=== PATIENT | female | born 1965 | race Caucasian/White ===

== ENCOUNTER 2019-06-19 18:14 | Inpatient (IN) | payer OTHER ==
[2019-06-19] MEDS ORDERED: LORazepam 2 MG/ML INJ IV STA (18:38)
--- NOTE | 2019-06-19 18:41 | ED ---
General Adult HPI - General Chief complaint: Dizziness Stated complaint: lightheaded Time Seen by Provider: 06/19/19 18:29 Source: patient, family, RN notes reviewed Mode of arrival: wheelchair Limitations: no limitations - History of Present Illness Initial comments: Patient is a pleasant 54-year-old female presenting to the emergency Department with complaints of lightheadedness. Onset of symptoms was following starting Dyazide for hypertension. Patient saw her doctor this past week and was started on IV side. Symptoms started following that. Patient has lightheadedness as well as some arm cramping bilaterally. Patient does admit to having some anxiety associated with this as well. Patient has no history of hypertension previously, last blood pressure check was approximately one year ago. No headache or confusion or weakness. No loss of sensation. No speech problems. No chest pain or dyspnea. Blood pressure at the office was 180/120. - Related Data Allergies Allergy/AdvReac Type Severity Reaction Status Date / Time azithromycin [From Zithromax] Allergy Unknown Verified 06/19/19 18:24 Review of Systems ROS Statement: Those systems with pertinent positive or pertinent negative responses have been documented in the HPI. ROS Other: All systems not noted in ROS Statement are negative. Constitutional: Denies: fever Eyes: Denies: eye pain ENT: Denies: ear pain Respiratory: Denies: cough Cardiovascular: Denies: chest pain Endocrine: Denies: fatigue Gastrointestinal: Reports: nausea. Denies: abdominal pain Genitourinary: Denies: dysuria Musculoskeletal: Denies: back pain Skin: Denies: rash Neurological: Reports: as per HPI. Denies: headache Psychiatric: Reports: anxiety Past Medical History Past Medical History: Hypertension History of Any Multi-Drug Resistant Organisms: None Reported Past Surgical History: Orthopedic Surgery Past Psychological History: No Psychological Hx Reported Smoking Status: Never smoker Past Alcohol Use History: None Reported Past Drug Use History: None Reported General Exam Limitations: no limitations General appearance: alert, in no apparent distress Head exam: Present: normocephalic Eye exam: Present: normal appearance, PERRL, EOMI. Absent: nystagmus ENT exam: Present: normal oropharynx Neck exam: Present: normal inspection Respiratory exam: Present: normal lung sounds bilaterally Cardiovascular Exam: Present: regular rate, normal rhythm GI/Abdominal exam: Present: soft. Absent: tenderness Extremities exam: Present: normal inspection. Absent: pedal edema, calf tenderness Neurological exam: Present: alert, oriented X3, CN II-XII intact. Absent: motor sensory deficit Expanded Neurological exam: Present: protecting the airway Speech: Present: fluid speech Cranial nerves: EOM's Intact: Normal Motor strength exam: RUE: 5, LUE: 5, RLE: 5, LLE: 5 Eye Response: (4) open spontaneously Motor Response: (6) obeys commands Verbal Response: (5) oriented Psychiatric exam: Present: normal affect, normal mood Skin exam: Present: normal color Course Vital Signs 06/19/19 06/19/19 18:19 19:08 Temperature 98.1 F Pulse Rate 87 70 Respiratory 18 18 Rate Blood Pressure 198/122 177/117 O2 Sat by Pulse 98 Oximetry EKG Findings - EKG Comments: EKG Findings:: Normal sinus rhythm at 81. MD 158. QRS 90. QT 426. QTc 494. Normal axis. Normal QRS. No acute ST change. Medical Decision Making - Medical Decision Making Patient reevaluated and updated. Patient resting comfortably in bed. Case discussed with Dr. Villanueva, who will admit covering for Dr. Ferguson. - Lab Data Result diagrams: 06/19/19 18:55 06/19/19 18:55 Lab Results 06/19/19 06/19/19 Range/Units 18:55 18:55 WBC 10.7 H (3.8-10.6) k/uL RBC 4.62 (3.80-5.40) m/uL Hgb 13.2 (11.4-16.0) gm/dL Hct 37.7 (34.0-46.0) % MCV 81.6 (80.0-100.0) fL MCH 28.5 (25.0-35.0) pg MCHC 35.0 (31.0-37.0) g/dL RDW 12.1 (11.5-15.5) % Plt Count 242 (150-450) k/uL Neutrophils % 79 % Lymphocytes % 15 % Monocytes % 4 % Eosinophils % 1 % Basophils % 0 % Neutrophils # 8.4 H (1.3-7.7) k/uL Lymphocytes # 1.6 (1.0-4.8) k/uL Monocytes # 0.4 (0-1.0) k/uL Eosinophils # 0.1 (0-0.7) k/uL Basophils # 0.0 (0-0.2) k/uL Sodium 118 L* (137-145) mmol/L Potassium 3.1 L (3.5-5.1) mmol/L Chloride 79 L (98-107) mmol/L Carbon Dioxide 25 (22-30) mmol/L Anion Gap 14 mmol/L BUN 14 (7-17) mg/dL Creatinine 0.65 (0.52-1.04) mg/dL Est GFR (CKD-EPI)AfAm >90 (>60 ml/min/1.73 sqM) Est GFR (CKD-EPI)NonAf >90 (>60 ml/min/1.73 sqM) Glucose 139 H (74-99) mg/dL Calcium 9.1 (8.4-10.2) mg/dL Magnesium 1.5 L (1.6-2.3) mg/dL Total Bilirubin 1.3 (0.2-1.3) mg/dL AST 25 (14-36) U/L ALT 17 (4-34) U/L Alkaline Phosphatase 103 (38-126) U/L Total Protein 7.1 (6.3-8.2) g/dL Albumin 4.4 (3.5-5.0) g/dL Free T4 2.29 H (0.78-2.19) ng/dL Free T3 pg/mL 3.9 (2.8-5.3) pg/ml Disposition Clinical Impression: Hyponatremia, Hypokalemia, Hypertension Disposition: ADMITTED IP TO THIS HOSP Is patient prescribed a controlled substance at d/c from ED?: No Referrals: Yazmin Escalera MD [Primary Care Provider] - 1-2 days Decision Time: 19:56
[2019-06-19 19:09] LABS: Basophils % (A) 0 %; Eosinophils # (A) 0.1 k/uL (0-0.7); Eosinophils % (A) 1 %; HCT 37.7 % (34.0-46.0); HGB 13.2 gm/dL (11.4-16.0); Lymphocytes # (A) 1.6 k/uL (1.0-4.8); Lymphocytes % (A) 15 %; MCH 28.5 pg (25.0-35.0); MCV 81.6 fL (80.0-100.0); Mean Platelet Volume 6.4; Monocytes # (A) 0.4 k/uL (0-1.0); Monocytes % (A) 4 %; Neutrophils # (A) 8.4 k/uL (1.3-7.7); Neutrophils % (A) 79 %; Platelet Count 242 k/uL (150-450); RBC 4.62 m/uL (3.80-5.40); RDW 12.1 % (11.5-15.5); WBC 10.7 k/uL (3.8-10.6)
[2019-06-19 19:26] LABS: ALT 17 U/L (4-34); AST 25 U/L (14-36); African American GFR (CKD) >90 (>60 ml/min/1.73 sqM); Albumin 4.4 g/dL (3.5-5.0); Alkaline Phosphatase 103 U/L (38-126); Anion Gap 14 mmol/L; Blood Urea Nitrogen 14 mg/dL (7-17); Calcium 9.1 mg/dL (8.4-10.2); Carbon Dioxide 25 mmol/L (22-30); Chloride 79 mmol/L (98-107); Glucose 139 mg/dL (74-99); Magnesium 1.5 mg/dL (1.6-2.3); Non-African American GFR(CKD) >90 (>60 ml/min/1.73 sqM); Potassium 3.1 mmol/L (3.5-5.1); Total Bilirubin 1.3 mg/dL (0.2-1.3); Total Protein 7.1 g/dL (6.3-8.2)
[2019-06-19 19:33] LABS: Sodium 118 mmol/L (137-145)
--- NOTE | 2019-06-19 19:34 | XR ---
EXAMINATION TYPE: XR chest 2V DATE OF EXAM: 06/19/2019 COMPARISON: NONE HISTORY: Dizziness TECHNIQUE: 2 views FINDINGS: Heart and mediastinum are normal. Lungs are clear. Diaphragm is normal. Bony thorax appears normal. IMPRESSION: Normal chest.
[2019-06-19] MEDS ORDERED: POTASSIUM CHLORIDE ER 20 MEQ TAB.ER PO STA (19:36)
[2019-06-19] MEDS ORDERED: MAGNESIUM OXIDE 400 MG TAB PO STA (19:36)
[2019-06-19] MEDS ORDERED: SODIUM CHLORIDE 0.9% 500 ML 500 ML IV STA (19:37)
[2019-06-19] MEDS ORDERED: SODIUM CHLORIDE 0.9% 1,000 ML IV STA (19:37)
[2019-06-19 19:43] LABS: T4, Free (Free Thyroxine) 2.29 ng/dL (0.78-2.19)
[2019-06-19] MEDS ORDERED: NALOXONE 0.4 MG/ML 1 ML VIAL IV PRN (19:56)
[2019-06-19] MEDS ORDERED: amLODIPine 5 MG TAB PO STA (19:56)
[2019-06-19] MEDS ORDERED: MAGNESIUM SULFATE-D5W PMX 1 GM in DEXTROSE/WATER 1 100ML.BAG IVPB ONE (21:42)
[2019-06-19 22:04] LABS: Appearance,Urine Clear (Clear); Bilirubin,Urine Negative (Negative); Blood,Urine Negative (Negative); Color,Urine Light Yellow; Glucose,Urine (UA) Negative (Negative); Ketones,Urine 1+ (Negative); Leukocyte Esterase,Urine Negative (Negative); Nitrite,Urine Negative (Negative); PH, Urine 5.5 (5.0-8.0); Protein,Urine Negative (Negative); Specific Gravity,Urine 1.012 (1.001-1.035); Urobilinogen,Urine <2.0 mg/dL (<2.0)
--- NOTE | 2019-06-19 22:13 | P.HPIM ---
History of Present Illness H&P Date: 06/19/19 The patient is a 54-year-old female with a PMH of hypertension and hypothyroidism who presented to the ED with complaints of lightheadedness and cramping in her arms. The patient notes that her symptoms started after she was started on a new antihypertensive (dyazide) for her recently diag nosed high blood pressure. She notes compliance with the medication, taking it once daily, and notes that she initially felt somewhat lightheaded upon standing up, which then gradually worsened. She reports that earlier today, she had cramping in both her arms which was alarming to her, and prompted her to come to the emergency room. The patient also reported nausea throughout the day. The patient otherwise denied headache, weakness, numbness, syncope, seizures, fall, chest pain, shortness of breath, nausea, or vomiting. The patient underwent an extensive evaluation in the emergency room with laboratory evaluation showing a sodium of 118 (down from 137 on 06/17), potassium 3.1 (down from 4.6 on 06/17), chloride 79, magnesium 1.5, TSH 0.091, free T4 2 0.29, WBC count 10.7, hemoglobin 13.2, and platelets 242. The patient was given 1 L of normal saline bolus with potassium and magnesium supplementation and is being admitted to the medicine service for further management. Review of Systems Pertinent positives and negatives as discussed in HPI, a complete review of systems was performed and all other systems are negative. Past Medical History Past Medical History: Hypertension History of Any Multi-Drug Resistant Organisms: None Reported Past Surgical History: Orthopedic Surgery Past Psychological History: No Psychological Hx Reported Smoking Status: Never smoker Past Alcohol Use History: None Reported Past Drug Use History: None Reported Medications and Allergies Allergies Allergy/AdvReac Type Severity Reaction Status Date / Time azithromycin [From Zithromax] Allergy Unknown Verified 06/19/19 18:24 Physical Exam Vitals: Vital Signs Temp Pulse Resp BP Pulse Ox 06/19/19 20:19 80 18 185/107 97 06/19/19 19:08 70 18 177/117 06/19/19 18:19 98.1 F 87 18 198/122 98 Intake and Output 06/19/19 06/19/19 06/19/19 06:59 14:59 22:59 Other: Weight 84.822 kg General: non toxic, no distress, appears at stated age, obese Derm: no unusual rashes/lesions no unusual ecchymoses, warm, dry Head: atraumatic, normocephalic, symmetric Eyes: EOMI, no lid lag, anicteric sclera, pupils equal round reactive to light ENT: Nose and ears atraumatic, no thrush, no pharyngeal erythema Neck: No thyromegaly, no cervical lymphadenopathy, trachea midline, supple Mouth: no lip lesion, mucus membranes moist Cardiovascular: S1S2 reg, no murmur, positive posterior tibial pulse bilateral, no edema, capillary refill less than 2 seconds Lungs: CTA bilateral, no rhonchi, no rales , no accessory muscle use Abdominal: soft, nontender to palpation, no guarding, no appreciable organomegaly, normal bowel sounds Ext: no gross muscle atrophy, muscle strength 5 out of 5 in all 4 extremities grossly, no contractures, Neuro: CN II-XI grossly intact, light touch intact all 4 extremities, finger to nose within normal limits, Psych: Alert, oriented, appropriate affect Results CBC & Chem 7: 06/19/19 18:55 06/19/19 22:12 Labs: Abnormal Lab Results - Last 24 Hours (Table) 06/19/19 06/19/19 Range/Units 18:55 18:55 WBC 10.7 H (3.8-10.6) k/uL Neutrophils # 8.4 H (1.3-7.7) k/uL Sodium 118 L* (137-145) mmol/L Potassium 3.1 L (3.5-5.1) mmol/L Chloride 79 L (98-107) mmol/L Glucose 139 H (74-99) mg/dL Magnesium 1.5 L (1.6-2.3) mg/dL TSH 0.091 L (0.465-4.680) mIU/L Free T4 2.29 H (0.78-2.19) ng/dL Assessment and Plan Plan: Lightheadedness, cramping, likely due to severe hypochloremic hyponatremia -Likely secondary to initiation of combination diuretics -C/w IVFs NS 75 cc/hr -Monitor BMP -Seizure precautions Hypokalemia and hypomagnesemia -Supplement and monitor Hypothyroidism -Likely on a supratherapeutic dose of Synthroid -Patient notes her dose was recently increased -Restart on a lower dose Leukocytosis, no signs of active infection -Likely due to acute stress -Monitor CBC Hypertension -Start patient on Norvasc DVT prophylaxis -Heparin The patient is admitted with an anticipated less than 2 midnight stay for evaluation of hyponatremia CODE STATUS: Full Code Discussed with: Patient, Anticipated discharge date: 1-[address]: Home A total of 35 minutes was spent on the care of this complex patient more than 50% of the time was spent in counseling and care coordination.
[2019-06-19] MEDS ORDERED: hydrALAZINE HCL 25 MG TAB PO STA (22:32)
[2019-06-19] MEDS ORDERED: METOCLOPRAMIDE 5 MG TAB PO STA (22:34)
[2019-06-19 22:38] LABS: African American GFR (CKD) >90 (>60 ml/min/1.73 sqM); Anion Gap 12 mmol/L; Blood Urea Nitrogen 13 mg/dL (7-17); Calcium 8.9 mg/dL (8.4-10.2); Carbon Dioxide 25 mmol/L (22-30); Chloride 81 mmol/L (98-107); Glucose 125 mg/dL (74-99); Non-African American GFR(CKD) >90 (>60 ml/min/1.73 sqM); Potassium 3.5 mmol/L (3.5-5.1)
[2019-06-19] MEDS: POTASSIUM CHLORIDE ER 20 MEQ TAB.ER PO SCH (22:48)
[2019-06-19 23:30] LABS: Sodium 118 mmol/L (137-145)
--- NOTE | 2019-06-19 23:55 | P.PN ---
Progress Note - Text Progress Note Date: 06/19/19 Notified by the RN that the patient is c/o nausea. The patient's BP continues to be elevated and repeat BMP revealed persistently elevated level of Na. Concerns regarding possible cerebral edema due to persistent acute hyponatremia and hypertension. Will transfer patient to MICU. Will treat with hypertonic saline. Order Neurochecks.
[2019-06-20] MEDS ORDERED: HEPARIN SODIUM,PORCINE 5,000 UNIT/ML 1 ML VIAL SQ SCH
[2019-06-20] MEDS ORDERED: [UNRECOGNIZED DRUG - OTHER] IV SCH ×3 (00:30→00:50)
[2019-06-20] MEDS ORDERED: SODIUM CHLORIDE 3% IV SCH ×3 (00:30→00:50)
[2019-06-20 01:15] LABS: African American GFR (CKD) >90 (>60 ml/min/1.73 sqM); Anion Gap 10 mmol/L; Blood Urea Nitrogen 11 mg/dL (7-17); Calcium 9.1 mg/dL (8.4-10.2); Carbon Dioxide 27 mmol/L (22-30); Chloride 81 mmol/L (98-107); Glucose 120 mg/dL (74-99); Non-African American GFR(CKD) >90 (>60 ml/min/1.73 sqM); Potassium 3.7 mmol/L (3.5-5.1)
--- NOTE | 2019-06-20 01:35 | P.PN ---
Progress Note - Text Progress Note Date: 06/20/19 Spoke with the CLOTHING PATTERN PREPARER @ 0100 who noted that she had discussed the case with Dr Dutta who had said to hold off on the hypertonic saline bolus and obtain repeat BMP along with additional urinary testing. Subsequently discussed the case with Dr Dutta via phone who noted that the patient should receive hypertonic saline at a rate of 30 ml/hr along with IV lasix. Discussed the patient's symptoms including nausea and lightheadedness including concerns regarding possible milagros's reaction and herniation. The patient was seen and evaluated at the bedside @ 0120. The patient was awake, alert, and resting comfortably in bed. She noted that her nausea had somewhat improved along with her dizziness which also had seemed to be slightly improved. She denied weakness, numbness, tingling, headache, or visual disturbances. Plan to continue with Hypertonic saline as per the banking teacher along with lasix (to encourage free-water loss). Continue with Neurochecks q1h and BMP monitoring.
[2019-06-20 01:37] LABS: Creatinine,Urine Random 18.5 mg/dL
[2019-06-20] MEDS ORDERED: FUROSEMIDE 10 MG/ML 2 ML VIAL IV ONE (01:45)
[2019-06-20 02:00] LABS: Glucose,Whole Blood 109 mg/dL (75-99)
[2019-06-20] MEDS: SODIUM CHLORIDE 3%(HYPERTONIC) 500 ML IV SCH ×4 (02:09→22:36)
[2019-06-20 02:14] LABS: Sodium 118 mmol/L (137-145)
[2019-06-20 03:45] LABS: African American GFR (CKD) >90 (>60 ml/min/1.73 sqM); Anion Gap 9 mmol/L; Blood Urea Nitrogen 11 mg/dL (7-17); Calcium 8.7 mg/dL (8.4-10.2); Carbon Dioxide 27 mmol/L (22-30); Chloride 84 mmol/L (98-107); Glucose 105 mg/dL (74-99); Magnesium 1.8 mg/dL (1.6-2.3); Non-African American GFR(CKD) >90 (>60 ml/min/1.73 sqM); Potassium 3.5 mmol/L (3.5-5.1); Sodium 120 mmol/L (137-145)
[2019-06-20 07:14] LABS: HCT 37.9 % (34.0-46.0); HGB 13.8 gm/dL (11.4-16.0); MCHC 36.4 g/dL (31.0-37.0); MCV 82.5 fL (80.0-100.0); Mean Platelet Volume 6.7; Platelet Count 260 k/uL (150-450); RDW 12.2 % (11.5-15.5); WBC 9.6 k/uL (3.8-10.6)
[2019-06-20 07:24] LABS: African American GFR (CKD) >90 (>60 ml/min/1.73 sqM); Anion Gap 9 mmol/L; Blood Urea Nitrogen 12 mg/dL (7-17); Calcium 8.9 mg/dL (8.4-10.2); Carbon Dioxide 27 mmol/L (22-30); Chloride 87 mmol/L (98-107); Glucose 104 mg/dL (74-99); Non-African American GFR(CKD) >90 (>60 ml/min/1.73 sqM); Potassium 3.8 mmol/L (3.5-5.1); Sodium 123 mmol/L (137-145)
--- NOTE | 2019-06-20 08:45 | P.NPCON ---
History of Present Illness - Reason for Consult hyponatremia - Chief Complaint Dizziness and hyponatremia - History of Present Illness This 54-year-old female seen in consultation because of acute onset of symptomatic hyponatremia. Her sodium was normal at 137 2 days ago on 06/25/2019 about 53 hours prior to this. She is known with hypothyroidism. Recently there has been increase in dose of Synthroid from 100 225 g. She saw her primary physician for the first time on 06/17/2019 for a regular scheduled visit. Her blood pressure was in the 160-110 range. Prior to this during a visit to her erosion control specialist may be in December 2018 5 months ago her blood pressure was supposedly normal. She has not been on any blood pressure medications. She was started on triamterene hydrochlorothiazide combination and after taking one tablet she started to have some mild symptoms which worsened and therefore she came to the emergency room. Her sodium was 118. There is no history suggestive of any other explanation for her hypertension except that she was under some great stress because of financial reasons. She saw her primary physician for the first time also. Blood pressure in the doctor's office was in the range of 160/100 Prior to this visit and there is nothing to suggest any cause of secondary hypertension. No history of sweating and palpitations dizziness chest pain shortness of breath. Out of 4 siblings one has a blood pressure and her mother had high blood pressure. Patient denies taking any nonsteroidals, weight gain or substance abuse. On admission his sodium was 118, potassium 3.1 chloride 79 bicarb 25. Creatinine 0.65, BUN 14. Glucose is 139. Magnesium 1.5, TSH was 0.091 low free T4 was 2.29 and free T3 was 3.9 EKG shows normal sinus rhythm. She was started on IV normal saline in the emergency room and had received about 800 mL and repeat sodium stayed at 118. She was started on 3% normal saline at about 2 AM, frequent sodiums were done and has gone up to 123 as of this morning. Past Medical History Past Medical History: Hypertension History of Any Multi-Drug Resistant Organisms: None Reported Past Surgical History: Orthopedic Surgery Additional Past Surgical History / Comment(s): cervical fusion Past Psychological History: No Psychological Hx Reported Smoking Status: Never smoker Past Alcohol Use History: None Reported Past Drug Use History: None Reported Medications and Allergies Allergies Allergy/AdvReac Type Severity Reaction Status Date / Time azithromycin [From Zithromax] Allergy Unknown Verified 06/19/19 18:24 Physical Exam Vitals: Vital Signs Temp Pulse Pulse Resp BP BP Pulse Ox 06/20/19 08:00 98.4 F 85 18 110/72 96 06/20/19 07:00 73 15 103/74 96 06/20/19 06:00 76 16 112/71 94 L 06/20/19 05:00 79 16 110/68 93 L 06/20/19 04:00 98.7 F 80 18 125/67 94 L 06/20/19 03:00 82 18 144/91 93 L 06/20/19 02:00 99 16 150/88 95 06/20/19 01:27 89 16 165/99 98 06/20/19 01:13 83 196/93 06/20/19 00:42 204/111 06/20/19 00:30 191/113 06/19/19 23:43 76 15 176/95 06/19/19 22:14 98.6 F 86 16 198/107 96 06/19/19 22:04 98.1 F 88 18 191/98 96 06/19/19 21:57 88 18 191/98 96 06/19/19 20:19 80 18 185/107 97 06/19/19 19:08 70 18 177/117 06/19/19 18:19 98.1 F 87 18 198/122 98 Intake and Output 06/19/19 06/20/19 06/20/19 22:59 06:59 14:59 Intake Total 90 260 Output Total 1700 475 Balance -1610 -215 Intake: IV 90 60 Sodium Chloride 3%( 90 60 Hypertonic) 500 ml @ 20 mls/hr IV .Q24H [facility] Rx#: [id number] Oral 200 Output: Urine 1700 475 Other: Voiding Method Indwelling Catheter Indwelling Catheter # Voids 1 Weight 84.822 kg On examination currently she is awake alert oriented comfortable her symptoms have resolved almost completely. HEENT exam no JVP neck is supple no facial asymmetry Lungs are clear to auscultation good air entry bilaterally Heart sounds are unremarkable no murmur rub gallop Abdomen soft nontender no organomegaly status masses Extremity exam reveals no edema Neurologically awake alert oriented no asterixis Results - Lab Results Most recent lab results Calcium 8.9 mg/dL (8.4-10.2) 06/20/19 06:41 Magnesium 2.0 mg/dL (1.6-2.3) 06/20/19 06:41 06/20/19 06:41 06/20/19 06:41 Assessment and Plan Assessment: Impression 1. Acute symptomatic hyponatremia, sodium was 137 on 06/17/2019 at noon, and went down to 118 on 06/19/2019 at 7 PM approximately 53 hours after starting medication but symptomatic even within 24 hours of starting medications. This is somewhat unusual for a hydrochlorothiazide diuretics to induce second-degree of severe hyponatremia within 24-48 hours. There is no explanation other than this no currently. Her thyroid status is normal albeit slightly high free T4 on replacement. Did not respond to IV normal saline 800 mL. Urine sodium was collected after she was given about a liter of saline, it was 223 and urine sodium is not available. Responded to 3% saline at 30 mL an hour and one dose of Lasix 20 mg. Sodium is improved to 137, over 6 hours. As this is acute onset of hyponatremia this level of rapidity of correction is acceptable No other explanation may be nausea from other causes that might have induced SIADH. 2. Hypothyroidism on replacement 3. Acute onset of hypertension, for which she was prescribed Dyazide, she is off of the Dyazide currently pressure is down to normal without any medication Recommendation 1. I have reduced her 3% saline from 30 mL to 20 mL. 2. Will check serum sodium in about 8 hours from now to 3. Once discharge she needs to be followed up for possibility of hypertension recurring.
[2019-06-20] MEDS ORDERED: amLODIPine 5 MG TAB PO SCH (09:00)
--- NOTE | 2019-06-20 10:35 | P.CNPUL ---
History of Present Illness Consult date: 06/20/19 Requesting physician: Collin De Los Santos Reason for consult: other (Critical care management) Chief complaint: Dizziness, weakness, nausea History of present illness: This is a very pleasant 54-year-old female patient who follows with Dr. Chikis Lucas as a new primary care provider. She has a past medical history of hypothyroidism and follows with site manager for the same. She had seen her new PCP on 06/15/2019 and was found to be hypertensive 160/100 range. She had started her on hydrochlorothiazide which the patient initiated on 06/17/2019 and took a dose that day the and . Her sodium from the was 138. Later on the , yesterday, she developed increased nausea, dizziness, weakness and presented here to the emergency room for the same. She was found to have a sodium of 118. She needed to be initiated on 3% normal saline and transferred to the ICU. She is seen today in consultation. She is awake and alert in no acute distress. Her sodium has improved to 123. She denies any significant lightheadedness. Her nausea is subsiding. No tingling or numbness. She remains on hypertonic 3% normal saline at 30 MLS per hour. Nephrology is on the case. She is maintaining good O2 saturations in the 90s on room air. Afebrile. Hemodynamically stable. Review of Systems REVIEW OF SYSTEMS: CONSTITUTIONAL: Denies any recent significant weight loss or weight gain. EYES: Denies change in vision. EARS, NOSE, MOUTH, THROAT: Denies headaches, denies sore throat. CARDIOVASCULAR: Positive for palpitations, no chest pain or syncope RESPIRATORY: Positive for shortness of breath, no cough, congestion or hemoptysis. GASTROINTESTINAL: Positive for nausea GENITOURINARY: Denies hematuria, denies infections. MUSKULOSKELETAL: Cramps of the lower extremities, tingling and in the upper extremities. INTEGUMENTARY: Denies rash, denies eczema. NEUROLOGICAL: Positive for dizziness lightheadedness, fullness in the high. PSYCHIATRIC: Positive for anxiety. HEMATOLOGIC/LYMPHATIC: Denies anemia, denies enlarged lymph nodes. Past Medical History Past Medical History: Hypertension History of Any Multi-Drug Resistant Organisms: None Reported Past Surgical History: Orthopedic Surgery Additional Past Surgical History / Comment(s): cervical fusion Past Psychological History: No Psychological Hx Reported Smoking Status: Never smoker Past Alcohol Use History: None Reported Past Drug Use History: None Reported - Past Family History Mother Brother(s) Family Medical History: Hypertension Medications and Allergies Allergies Allergy/AdvReac Type Severity Reaction Status Date / Time azithromycin [From Zithromax] Allergy Unknown Verified 06/19/19 18:24 Physical Exam Vitals: Vital Signs Temp Pulse Pulse Resp BP BP Pulse Ox 06/20/19 08:00 98.4 F 85 18 110/72 96 06/20/19 07:00 73 15 103/74 96 06/20/19 06:00 76 16 112/71 94 L 06/20/19 05:00 79 16 110/68 93 L 06/20/19 04:00 98.7 F 80 18 125/67 94 L 06/20/19 03:00 82 18 144/91 93 L 06/20/19 02:00 99 16 150/88 95 06/20/19 01:27 89 16 165/99 98 06/20/19 01:13 83 196/93 06/20/19 00:42 204/111 06/20/19 00:30 191/113 06/19/19 23:43 76 15 176/95 06/19/19 22:14 98.6 F 86 16 198/107 96 06/19/19 22:04 98.1 F 88 18 191/98 96 06/19/19 21:57 88 18 191/98 96 06/19/19 20:19 80 18 185/107 97 06/19/19 19:08 70 18 177/117 06/19/19 18:19 98.1 F 87 18 198/122 98 Intake and Output 06/19/19 06/20/19 06/20/19 22:59 06:59 14:59 Intake Total 90 260 Output Total 1700 475 Balance -1610 -215 Intake: IV 90 60 Sodium Chloride 3%( 90 60 Hypertonic) 500 ml @ 20 mls/hr IV .Q24H [facility] Rx#: [id number] Oral 200 Output: Urine 1700 475 Other: Voiding Method Indwelling Catheter Indwelling Catheter # Voids 1 Weight 84.822 kg GENERAL EXAM: Alert, pleasant 54-year-old female patient, comfortable in no apparent distress. On room air HEAD: Normocephalic. EYES: Normal reaction of pupils, equal size. NOSE: Clear with pink turbinates. THROAT: No erythema or exudates. NECK: No masses, no JVD. CHEST: No chest wall deformity. LUNGS: Equal air entry with no crackles, wheeze, rhonchi or dullness. CVS: S1 and S2 normal with no audible murmur, regular rhythm. ABDOMEN: No hepatosplenomegaly, normal bowel sounds, no guarding or rigidity. SPINE: No scoliosis or deformity SKIN: No rashes CENTRAL NERVOUS SYSTEM: No focal deficits, tone is normal in all 4 extremities. EXTREMITIES: There is no peripheral edema. No clubbing, no cyanosis. Peripheral pulses are intact. Results - Laboratory Findings CBC and BMP: 06/20/19 06:41 06/20/19 06:41 Abnormal lab findings: Abnormal Labs 06/19/19 06/19/19 06/19/19 18:55 18:55 22:00 WBC 10.7 H Neutrophils # 8.4 H Sodium 118 L* Potassium 3.1 L Chloride 79 L Glucose 139 H POC Glucose (mg/dL) Magnesium 1.5 L TSH 0.091 L Free T4 2.29 H Urine Ketones 1+ H 06/19/19 06/20/19 06/20/19 22:12 00:50 01:58 WBC Neutrophils # Sodium 118 L* 118 L* Potassium Chloride 81 L 81 L Glucose 125 H 120 H POC Glucose (mg/dL) 109 H Magnesium TSH Free T4 Urine Ketones 06/20/19 06/20/19 03:20 06:41 WBC Neutrophils # Sodium 120 L 123 L Potassium Chloride 84 L 87 L Glucose 105 H 104 H POC Glucose (mg/dL) Magnesium TSH Free T4 Urine Ketones - Diagnostic Findings Chest x-ray: image reviewed Assessment and Plan Assessment: 1 Palpitations, nausea, lightheadedness secondary to acute hyponatremia with the presenting sodium 118. Currently 123. 2 Acute hyponatremia suspect secondary to hydrochlorothiazide 3 Hypertension and a recent PCP visit initiated on hydrochlorothiazide on 06/17/2019 with 3 doses taken 4 Hypothyroidism 5 Anxiety related to financial issues Plan: The patient was seen and evaluated by Dr. Palmer. Continue hypertonic saline 3% Continue to monitor sodium levels closely Keep her here in the ICU another 24 hours Monitor blood pressure currently normotensive We'll continue to follow I, the cosigning physician, performed a history & physical examination of the patient. Lungs sounds are clear. Maintaining good O2 saturations in the 90s on room air. I discussed the assessment and plan of care with my nurse practitioner, Maritza Lopez. I attest to the above consultation as dictated by her. Time with Patient: Greater than 30
[2019-06-20] MEDS: POTASSIUM CHLORIDE ER 20 MEQ TAB.ER PO SCH ×2 (10:49→21:04)
[2019-06-20 16:14] LABS: African American GFR (CKD) >90 (>60 ml/min/1.73 sqM); Anion Gap 8 mmol/L; Blood Urea Nitrogen 13 mg/dL (7-17); Calcium 9.2 mg/dL (8.4-10.2); Carbon Dioxide 27 mmol/L (22-30); Chloride 91 mmol/L (98-107); Glucose 103 mg/dL (74-99); Non-African American GFR(CKD) >90 (>60 ml/min/1.73 sqM); Potassium 4.3 mmol/L (3.5-5.1); Sodium 126 mmol/L (137-145)
--- NOTE | 2019-06-20 16:57 | P.PN ---
Subjective Progress Note Date: 06/20/19 (delayed charting patient seen at 1145) Principal diagnosis: altered mentation Patient is a 54 show female with past medical history of hypertension and hypothyroidism who presented to the emergency department secondary to lightheadedness, cramping, and confusion. In the ER she underwent an extensive evaluation. She was found to have an extremely low sodium of 118 (down from 137 on 06/17/19), potassium 3.1, chloride 79, magnesium 1.5, TSH 0.091, and free T4 2.29. Her blood pressure was extremely elevated on arrival she received IV hydralazine. She also received 1 L normal saline bolus, potassium, and magnesium supplementation. It was noted that she had started dyazide 2 days prior. She was admitted to the ICU for further monitoring. Nephrology was consulted. She was given 1 dose of hypertonic saline along with Lasix IV push to help with free water losses. Her neuro status and sodium were monitored closely. By the morning after admission her sodium had improved to 123. She was seen by nephrology who reduced her 3% saline from 30-20 mL/h and recommended awaiting repeat sodium for 8 hours later. She was started on Norvasc for elevated blood pressures, however blood pressure was marginal. Patient seen and examined at bedside. She reports that she her Synthroid dosing was stopped in December and she started developing some signs of hyperthy roidism since then. She states that her blood pressure was elevated at the physician's office but is typically not elevated. She really does not want to be on blood pressure medications going forward. She currently reports an improvement in her cramping and overall arm heaviness. She denies any shortness of breath. Objective - Vital Signs Vital signs: Vital Signs Temp 98.0 F 06/20/19 12:00 Pulse 79 06/20/19 15:00 Resp 16 06/20/19 15:00 BP 121/74 06/20/19 15:00 Pulse Ox 96 06/20/19 15:00 Intake & Output 06/19/19 06/20/19 06/20/19 18:59 06:59 18:59 Intake Total 90 840 Output Total 1700 1505 Balance -1610 -665 Weight 84.822 kg 84.822 kg Intake: IV 90 140 Sodium Chloride 3%( 90 140 Hypertonic) 500 ml @ 20 mls/hr IV .Q24H [facility] Rx#: [id number] Oral 700 Output: Urine 1700 1505 Other: Voiding Method Indwelling Catheter Indwelling Catheter # Voids 1 - Exam General: non toxic, no distress, appears at stated age Derm: warm, dry Head: atraumatic, normocephalic, symmetric Eyes: EOMI, no lid lag, anicteric sclera Mouth: no lip lesion, mucus membranes dry Cardiovascular: S1S2 reg, no murmur, positive posterior tibial pulse bilateral, Lungs: CTA bilateral, no rhonchi, no rales , no accessory muscle use Abdominal: soft, nontender to palpation, no guarding, no appreciable orga nomegaly Ext: no gross muscle atrophy, no edema, no contractures Neuro: CN II-XI grossly intact, no focal neuro deficits Psych: Alert, oriented, appropriate affect - Labs CBC & Chem 7: 06/20/19 06:41 06/20/19 15:50 Labs: Abnormal Lab Results - Last 24 Hours (Table) 06/19/19 06/19/19 06/19/19 Range/Units 18:55 18:55 22:00 WBC 10.7 H (3.8-10.6) k/uL Neutrophils # 8.4 H (1.3-7.7) k/uL Sodium 118 L* (137-145) mmol/L Potassium 3.1 L (3.5-5.1) mmol/L Chloride 79 L (98-107) mmol/L Glucose 139 H (74-99) mg/dL POC Glucose (mg/dL) (75-99) mg/dL Magnesium 1.5 L (1.6-2.3) mg/dL TSH 0.091 L (0.465-4.680) mIU/L Free T4 2.29 H (0.78-2.19) ng/dL Urine Ketones 1+ H (Negative) 06/19/19 06/20/19 06/20/19 Range/Units 22:12 00:50 01:58 WBC (3.8-10.6) k/uL Neutrophils # (1.3-7.7) k/uL Sodium 118 L* 118 L* (137-145) mmol/L Potassium (3.5-5.1) mmol/L Chloride 81 L 81 L (98-107) mmol/L Glucose 125 H 120 H (74-99) mg/dL POC Glucose (mg/dL) 109 H (75-99) mg/dL Magnesium (1.6-2.3) mg/dL TSH (0.465-4.680) mIU/L Free T4 (0.78-2.19) ng/dL Urine Ketones (Negative) 06/20/19 06/20/19 06/20/19 Range/Units 03:20 06:41 15:50 WBC (3.8-10.6) k/uL Neutrophils # (1.3-7.7) k/uL Sodium 120 L 123 L 126 L (137-145) mmol/L Potassium (3.5-5.1) mmol/L Chloride 84 L 87 L 91 L (98-107) mmol/L Glucose 105 H 104 H 103 H (74-99) mg/dL POC Glucose (mg/dL) (75-99) mg/dL Magnesium (1.6-2.3) mg/dL TSH (0.465-4.680) mIU/L Free T4 (0.78-2.19) ng/dL Urine Ketones (Negative) Assessment and Plan Assessment: Acute symptomatic hyponatremia - on 3% with nephro consult - Follow sodium levels - Off diuretic therapy, discharge home off diuretics - urine osmolality 223, urine sodium pending HTN urgency on arrival - now with low BP - stop norvasc - follow BP closely Hypothyroidism with depressed TSH - levothyroixine 100mcg - repeat testing in 4-6 weeks - 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
[2019-06-20 22:26] LABS: African American GFR (CKD) >90 (>60 ml/min/1.73 sqM); Anion Gap 6 mmol/L; Blood Urea Nitrogen 15 mg/dL (7-17); Calcium 9.1 mg/dL (8.4-10.2); Carbon Dioxide 27 mmol/L (22-30); Chloride 96 mmol/L (98-107); Glucose 101 mg/dL (74-99); Non-African American GFR(CKD) >90 (>60 ml/min/1.73 sqM); Potassium 4.1 mmol/L (3.5-5.1); Sodium 129 mmol/L (137-145)
[2019-06-21 01:13] LABS: African American GFR (CKD) >90 (>60 ml/min/1.73 sqM); Anion Gap 6 mmol/L; Blood Urea Nitrogen 14 mg/dL (7-17); Calcium 9.3 mg/dL (8.4-10.2); Carbon Dioxide 25 mmol/L (22-30); Chloride 100 mmol/L (98-107); Glucose 96 mg/dL (74-99); Non-African American GFR(CKD) >90 (>60 ml/min/1.73 sqM); Potassium 4.6 mmol/L (3.5-5.1); Sodium 131 mmol/L (137-145)
[2019-06-21 06:20] LABS: HCT 38.2 % (34.0-46.0); HGB 13.2 gm/dL (11.4-16.0); MCH 29.3 pg (25.0-35.0); MCHC 34.5 g/dL (31.0-37.0); MCV 84.9 fL (80.0-100.0); Mean Platelet Volume 6.7; Platelet Count 220 k/uL (150-450); RDW 12.5 % (11.5-15.5); WBC 6.1 k/uL (3.8-10.6)
[2019-06-21 06:29] LABS: African American GFR (CKD) >90 (>60 ml/min/1.73 sqM); Anion Gap 6 mmol/L; Blood Urea Nitrogen 12 mg/dL (7-17); Calcium 9.4 mg/dL (8.4-10.2); Carbon Dioxide 26 mmol/L (22-30); Chloride 103 mmol/L (98-107); Glucose 95 mg/dL (74-99); Non-African American GFR(CKD) >90 (>60 ml/min/1.73 sqM); Potassium 4.7 mmol/L (3.5-5.1); Sodium 135 mmol/L (137-145)
[2019-06-21] MEDS ORDERED: LEVOTHYROXINE 100 MCG TAB PO SCH (06:30)
[2019-06-21 08:11] VITALS: TEMP 98.2
[2019-06-21] MEDS: POTASSIUM CHLORIDE ER 20 MEQ TAB.ER PO SCH (09:20)
[2019-06-21 12:16] LABS: African American GFR (CKD) >90 (>60 ml/min/1.73 sqM); Anion Gap 10 mmol/L; Blood Urea Nitrogen 14 mg/dL (7-17); Calcium 9.5 mg/dL (8.4-10.2); Carbon Dioxide 21 mmol/L (22-30); Chloride 103 mmol/L (98-107); Glucose 101 mg/dL (74-99); Non-African American GFR(CKD) >90 (>60 ml/min/1.73 sqM); Sodium 134 mmol/L (137-145)
[2019-06-21 12:18] VITALS: BP 148/88; PULSE 80; RESP 14
--- NOTE | 2019-06-21 12:23 | PN ---
PROGRESS NOTE Patient is seen for followup for hyponatremia, secondary to thiazide and diuretics. She was on 3% saline for a short period of time, which was now discontinued. Her sodium up to 135. Patient wants to get discharged. She wants to go home. She denies any significant complaints. PHYSICAL EXAMINATION: On examination, blood pressure this morning was 138/94, heart rate 73 per minute, she is afebrile. Examination of the heart S1, S2. Examination of the lungs, bilateral breath sounds are heard. Abdomen is soft, non-tender. Examination of the lower extremities shows no significant edema. DIRECTOR VIDEO exam grossly intact. LABS: Show sodium 135, potassium 4.7, serum creatinine 0.6. ASSESSMENT: 1. Hyponatremia secondary to thiazide diuretics, currently improved. The patient is advised that we will repeat her sodium this afternoon and if she is stable, she can be discharged. She is advised to repeat labs as outpatient. Maintain some degree of free water restriction and increase her protein intake. She should also avoid the use of thiazide diuretics. 2. Possible hypertension. Patient will be given a prescription for Norvasc and she will monitor blood pressure at home. Will follow up with PCP and start the Norvasc if her systolic blood pressure remains elevated. MMODL / IJN: [id number] /
[2019-06-21 12:29] LABS: Potassium 5.2 mmol/L (3.5-5.1)
--- NOTE | 2019-06-21 12:56 | P.PN ---
Subjective Progress Note Date: 06/21/19 Principal diagnosis: Acute hypovolemic hyponatremia This is a very pleasant 54-year-old female patient who follows with Dr. Chikis Lucas as a new primary care provider. 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 She had seen her new PCP on 06/15/2019 and was found to be hypertensive 160/100 range. She had started her on hydrochlorothiazide which the patient initiated on 06/17/2019 and took a dose that day the and . Her sodium from the was 138. Later on the , yesterday, she developed increased nausea, dizziness, weakness and presented here to the emergency room for the same. She was found to have a sodium of 118. She needed to be initiated on 3% normal saline and transferred to the ICU. She is seen today in consultation. She is awake and alert in no acute distress. Her sodium has improved to 123. She denies any significant lightheadedness. Her nausea is subsiding. No tingling or numbness. She remains on hypertonic 3% normal saline at 30 MLS per hour. Nephrology is on the case. She is maintaining good O2 saturations in the 90s on room air. Afebrile. Hemodynamically stable. Reevaluated today on 06/21/19, patient is doing great. Patient is asymptomatic. Sodium is 134, renal profile is normal, patient is doing great and she remains hemodynamically stable. Objective - Vital Signs Vital signs: Vital Signs Temp 98.2 F 06/21/19 08:00 Pulse 80 06/21/19 12:00 Resp 14 06/21/19 12:00 BP 148/88 06/21/19 12:00 Pulse Ox 99 06/21/19 12:00 Intake & Output 06/20/19 06/21/19 06/21/19 18:59 06:59 18:59 Intake Total 1560 440 950 Output Total 2530 1725 645 Balance -970 -1285 305 Weight 85.6 kg Intake: IV 260 140 Sodium Chloride 3%( 260 140 Hypertonic) 500 ml @ 20 mls/hr IV .Q24H [facility] Rx#: [id number] Oral 1300 300 950 Output: Urine 2530 1725 645 Other: Voiding Method Indwelling Catheter Indwelling Catheter Indwelling Catheter - Exam Physical Exam: Revealed a 54-year-old female in no distress, pleasant. Head: Atraumatic, normocephalic. HEENT:[Neck is supple.] [No neck masses.] [No thyromegaly.] [No JVD.] Chest: [Clear throughout, no crackles, no rhonchi, no wheezes.] Cardiac Exam: [Normal S1 and S2, no S3 gallop, no murmur.] Abdomen: [Soft, nontender, no megaly, no rebound, no guarding, normal bowel sounds.] Extremities: [No clubbing, no edema, no cyanosis.] Neurological Exam: [No focal neurologic deficit.] Psychiatric: Normal mood affect and normal mental status examination. Skin: No rashes. - Labs CBC & Chem 7: 06/21/19 05:48 06/21/19 11:43 Labs: Abnormal Lab Results - Last 24 Hours (Table) 06/20/19 06/20/19 06/21/19 Range/Units 15:50 21:56 00:30 Sodium 126 L 129 L 131 L (137-145) mmol/L Potassium (3.5-5.1) mmol/L Chloride 91 L 96 L (98-107) mmol/L Carbon Dioxide (22-30) mmol/L Glucose 103 H 101 H (74-99) mg/dL 06/21/19 06/21/19 Range/Units 05:48 11:43 Sodium 135 L 134 L (137-145) mmol/L Potassium 5.2 H (3.5-5.1) mmol/L Chloride (98-107) mmol/L Carbon Dioxide 21 L (22-30) mmol/L Glucose 101 H (74-99) mg/dL Assessment and Plan Assessment: Impression: Acute hypovolemic hyponatremia could've to diuretics History of hypertension. History of hypothyroidism. Generalized anxiety disorder. Recommendation: Continue to hold diuretics. Consider discharge planning today, Follow-up on outpatient basis with nephrology. Cleared for discharge from the ICU perspective. Time with Patient: Less than 30
--- NOTE | 2019-06-21 14:10 | P.DS ---
Providers Date of admission: 06/19/19 19:56 Expected date of discharge: 06/21/19 Attending physician: Collin De Los Santos MD Consults: 06/19/19 23:46 Consult Physician Stat Consulting Provider: Elmer Dutta Consult Reason/Comments: Hypochloremic hyponaremia Do you want consulting provider notified?: Yes 06/20/19 00:05 Consult Physician Stat Consulting Provider: Pierre Palmer Consult Reason/Comments: Severe symptomatic hyponatremia Do you want consulting provider notified?: Yes Primary care physician: [facility] Course: Discharge Diagnosis: Acute symptomatic hyponatremia HTN urgency on arrival Hypothyroidism with depressed TSH Leukocytosis, reactive, resovled Hypokalemia, resolved hypomagnesemia, resolved Hospital Course: Patient is a 54 yo female with past medical history of hypertension and hypothyroidism who presented to the emergency department secondary to lightheadedness, cramping, and confusion. In the ER she underwent an extensive evaluation. She was found to have an extremely low sodium of 118 (down from 137 on 06/17/19), potassium 3.1, chloride 79, magnesium 1.5, TSH 0.091, and free T4 2.29. Her blood pressure was extremely elevated on arrival she received IV hydralazine. She also received 1 L normal saline bolus, potassium, and magnesium supplementation. It was noted that she had started dyazide 2 days prior. She was admitted to the ICU for further monitoring. Nephrology was consulted. She was given 1 dose of hypertonic saline along with Lasix IV push to help with free water losses. Her neuro status and sodium were monitored closely. By the morning after admission her sodium had improved to 123. She was seen by nephrology who reduced her 3% saline from 30-20 mL/h and recommended awaiting repeat sodium for 8 hours later. She was started on Norvasc for elevated blood pressures, however blood pressure was marginal. Her sodium continued to improve. She was taken off normal saline and her sodium remained stable. Her BP was controlled on off medications and she was determined stable for discharge home. She will monitor her BP one daily and if she gets 3 independent reagins with SBP>140 or DBP >90 she will start norvasc 5 mg daily. She should have a repeat bmp in 3 days. She was found to have low TSH and synthroid was decreased. Recommend repeat TSH in 4-6 weeks. Follow-up with Dr. Escalera on Sunday 06/25 Patient seen and examined at bedside. Feeling well, slightly anxious, no nausea, no vomiting. No chest pain, no shortness of breath. Vital signs reviewed and stable. General: non toxic, no distress, appears at stated age Derm: warm, dry Head: atraumatic, normocephalic, symmetric Eyes: EOMI, no lid lag, anicteric sclera Mouth: no lip lesion, mucus membranes moist Cardiovascular: S1S2 reg, no murmur, positive posterior tibial pulse bilateral, Lungs: CTA bilateral, no rhonchi, no rales , no accessory muscle use Abdominal: soft, nontender to palpation, no guarding, no appreciable organomegaly Ext: no gross muscle atrophy, no edema, no contractures Neuro: CN II-XI grossly intact, no focal neuro deficits Psych: Alert, oriented, appropriate affect A total of 35 minutes of time were spent preparing this complex discharge summary . Patient Condition at Discharge: Stable Plan - Discharge Summary Discharge Rx Participant: Yes New Discharge Prescriptions: New amLODIPine [Norvasc] 5 mg PO DAILY #30 tab Levothyroxine Sodium [Synthroid] 100 mcg PO DAILY@0630 #30 tab Continue Multivitamins, Thera [Multivitamin (formulary)] 1 tab PO DAILY [place]-3 Fatty Acids/Fish Oil [Fish Oil 1,000 mg Softgel] 1 cap PO DAILY Discontinued Levothyroxine Sodium [Synthroid] 125 mcg PO DAILY Discharge Medication List Multivitamins, Thera [Multivitamin (formulary)] 1 tab PO DAILY 06/20/19 [History] [place]-3 Fatty Acids/Fish Oil [Fish Oil 1,000 mg Softgel] 1 cap PO DAILY 06/20/19 [History] Levothyroxine Sodium [Synthroid] 100 mcg PO DAILY@0630 #30 tab 06/21/19 [Rx] amLODIPine [Norvasc] 5 mg PO DAILY #30 tab 06/21/19 [Rx] Follow up Appointment(s)/Referral(s): Yazmin Escalera MD [Primary Care Provider] - 1-2 days Ambulatory/Diagnostic Orders: Basic Metabolic Panel [LAB.AMB] Time Frame: 3 Days, Location: None Selected Activity/Diet/Wound Care/Special Instructions: Activity: as tolerated Diet: regular, avoid intake of great than 64 ounces of water daily Special Instructions: Take blood pressure daily if top number is greater than 140 or bottom number greater than 90 on 3 occasions start [facility] Discharge Disposition: HOME SELF-CARE
== END 2019-06-21 15:30 | disposition home or self-care (01) | DRG 641 ==
LOC: EC 18:14 → 4SSUR 19:56 → 2SICU 06-20 02:01
PROVIDERS: ADMIT Internal Medicine; ATTEND Internal Medicine
DX: E87.1 Hypo-osmolality and hyponatremia (principal); E03.9 Hypothyroidism, unspecified; E83.42 Hypomagnesemia; E86.1 Hypovolemia; E87.6 Hypokalemia; I10 Essential (primary) hypertension; T50.2X5A Adverse effect of carbonic-anhydrase inhibitors, benzothiadiazides and other diuretics, initial encounter; I16.0 Hypertensive urgency; F41.1 Generalized anxiety disorder; Z88.1 Allergy status to other antibiotic agents; Z98.890 Other specified postprocedural states; Z59.9 Problem related to housing and economic circumstances, unspecified; Z82.49 Family history of ischemic heart disease and other diseases of the circulatory system
CPT/HCPCS: 36415; 71046; 80048; 80053; 81003; 82570; 83735; 83935; 84300; 84439; 84443; 84481; 85025; 85027; 93005; 96361; 96374; 99285

== ENCOUNTER 2023-06-01 08:51 | Emergency (ER) | payer OTHER ==
[2023-06-01 09:16] VITALS: RESP 18
[2023-06-01] MEDS ORDERED: LORazepam 2 MG/ML INJ IV STA (09:32)
[2023-06-01] MEDS ORDERED: IBUPROFEN IV 600 MG in SODIUM CHLORIDE 0.9% 250 ML IV STA (09:36)
[2023-06-01] MEDS ORDERED: ACETAMINOPHEN IV (For NPO) 1,000 MG in EMPTY BAG 1 BAG IVPB STA (09:36)
[2023-06-01] MEDS ORDERED: SODIUM CHLORIDE 0.9% 500 ML 500 ML IV SCH (09:45)
--- NOTE | 2023-06-01 10:01 | XR ---
EXAMINATION TYPE: XR chest 2V DATE OF EXAM: 06/01/2023 COMPARISON: 06/19/19 HISTORY: Shortness of breath TECHNIQUE: Frontal and lateral views of the chest are obtained. FINDINGS: Scattered senescent parenchymal changes noted. No evidence for infiltrate. No evidence for atelectasi s. Heart size is stable. Mediastinal structures are stable and grossly unremarkable. No evidence for hilar prominence. Degenerative changes dorsal spine. IMPRESSION: 1. No evidence for acute pulmonary disease.
--- NOTE | 2023-06-01 10:02 | CT ---
EXAMINATION TYPE: CT brain rafy partida DATE OF EXAM: 06/01/2023 COMPARISON: none HISTORY: Lt sided numbness, dizziness CT DLP: 1380.[address] of the brain was performed. The ventricles, basal cisterns and sulci overlying the cerebral convexities demonstrate mild enlargem ent. There is no evidence for intracranial hemorrhage or sulcal effacement. There is decreased attenuatio n about the periventricular white matter and deep white matter of both cerebral hemispheres, compatib le with chronic small vessel ischemia. No mass effects are seen. If symptoms persist consider MRI. Osseous calvarium is intact. IMPRESSION: 1. Age related atrophic and chronic small vessel ischemic change without acute intracranial process seen at this time. CT Cervical Spine: Unenhanced CT of the cervical spine was performed with bone and soft tissue window settings submitted . Coronal and sagittal reconstruction is obtained. There is normal alignment and prevertebral soft tissues. No evidence for acute cervical fracture . Scattered degenerative disc disease and spondylosis. Biapical scarring. IMPRESSION: 1. No evidence for acute fracture or subluxation of the cervical spine.
[2023-06-01 10:14] LABS: Basophils # (A) 0.1 k/uL (0-0.2); Basophils % (A) 1 %; Eosinophils # (A) 0.1 k/uL (0-0.7); Eosinophils % (A) 1 %; HCT 41.8 % (34.0-46.0); HGB 13.8 gm/dL (11.4-16.0); Lymphocytes # (A) 1.3 k/uL (1.0-4.8); Lymphocytes % (A) 14 %; MCH 28.6 pg (25.0-35.0); MCV 86.5 fL (80.0-100.0); Monocytes # (A) 0.3 k/uL (0-1.0); Monocytes % (A) 4 %; Neutrophils # (A) 7.4 k/uL (1.3-7.7); Neutrophils % (A) 80 %; Platelet Count 248 k/uL (150-450); RBC 4.83 m/uL (3.80-5.40); RDW 12.3 % (11.5-15.5); WBC 9.2 k/uL (3.8-10.6)
[2023-06-01 10:22] LABS: INR 0.9 (<1.2); Partial Thromboplastin Time 23.5 sec (22.0-30.0)
--- NOTE | 2023-06-01 10:28 | ED ---
General Adult HPI - General Chief complaint: Neuro Symptoms/Deficit Stated complaint: light headed Time Seen by Provider: 06/01/23 09:05 Source: patient, family, RN notes reviewed, old records reviewed Mode of arrival: ambulatory Limitations: no limitations - History of Present Illness Initial comments: This is a 58-year-old female presents to the emergency department with a past medical history significant for anxiety and panic attacks. Patient comes in today stating that for the last month she has had some dizziness spells and for the last 4 to 5 months she has had some paresthesias in her face and her right arm and her left arm as well. Patient also has some paresthesias in her left leg. Patient has no area of actual numbness she always has sensation but it just feels weird to her today and felt a little more weird and she was not sure if it was a panic attack or something else going on so she came to the emergency department. Patient denies any fever or chills. Patient is chest pain or difficulty breathing. Patient denies abdominal pain. Patient denies any nausea vomiting or diarrhea. - Related Data Home Medications Medication Instructions Recorded Confirmed Multivitamins, Thera [Multivitamin 1 tab PO DAILY 06/20/19 06/20/19 (formulary)] Tama-3 Fatty Acids/Fish Oil [Fish 1 cap PO DAILY 06/20/19 06/20/19 Oil 1,000 mg Softgel] Previous Rx's Medication Instructions Recorded Levothyroxine Sodium [Synthroid] 100 mcg PO DAILY@0630 #30 tab 06/21/19 amLODIPine [Norvasc] 5 mg PO DAILY #30 tab 06/21/19 Allergies Allergy/AdvReac Type Severity Reaction Status Date / Time azithromycin [From Zithromax] Allergy Unknown Verified 06/01/23 09:05 Review of Systems ROS Statement: Those systems with pertinent positive or pertinent negative responses have been documented in the HPI. ROS Other: All systems not noted in ROS Statement are negative. Past Medical History Past Medical History: Hypertension, Thyroid Disorder History of Any Multi-Drug Resistant Organisms: None Reported Past Surgical History: Orthopedic Surgery Additional Past Surgical History / Comment(s): cervical fusion Past Psychological History: No Psychological Hx Reported Smoking Status: Never smoker Past Alcohol Use History: Occasional Past Drug Use History: None Reported - Past Family History Mother Brother(s) Family Medical History: Hypertension General Exam - General Exam Comments Initial Comments: GENERAL: Patient is well-developed and well-nourished. Patient is nontoxic and well- hydrated and is in mild distress. ENT: Neck is soft and supple. No significant lymphadenopathy is noted. Oropharynx is clear. Moist mucous membranes. Neck has full range of motion without eliciting any pain. EYES: The sclera were anicteric and conjunctiva were pink and moist. Extraocular movements were intact and pupils were equal round and reactive to light. Eyelids were unremarkable. PULMONARY: Unlabored respirations. Good breath sounds bilaterally. No audible rales rhonchi or wheezing was noted. CARDIOVASCULAR: There is a regular rate and rhythm without any murmurs gallops or rubs. ABDOMEN: Soft and nontender with normal bowel sounds. SKIN: Skin is clear with no lesions or rashes and otherwise unremarkable. NEUROLOGIC: Patient is alert and oriented x3. Cranial nerves II through XII are grossly intact. Motor and sensory are also intact. Normal speech, volume and content. Symmetrical smile. NIH is 0 MUSCULOSKELETAL: Normal extremities with adequate strength and full range of motion. No lower extremity swelling or edema. No calf tenderness. LYMPHATICS: No significant lymphadenopathy is noted PSYCHIATRIC: Patient is very anxious Limitations: no limitations Course Vital Signs 06/01/23 06/01/23 06/01/23 09:01 09:41 10:30 Temperature 98 F Pulse Rate 70 71 68 Respiratory 18 18 18 Rate Blood Pressure 202/97 186/98 165/92 O2 Sat by Pulse 100 100 99 Oximetry Medical Decision Making - Medical Decision Making EKG is interpreted by myself her EKG shows a sinus rhythm at 60 bpm NE interval 160 QRS 84 QT intervals 4 8 QTc is 427. There is no ST segment ovation or depression Was pt. sent in by a medical professional or institution (, PA, [employer], urgent care, hospital, or group home...) When possible be specific @ -No Did you speak to anyone other than the patient for history (EMS, parent, family, police, friend...)? What history was obtained from this source @ -No Did you review nursing and triage notes (agree or disagree)? Why? @ -I reviewed and agree with nursing and triage notes Were old charts reviewed (outside hosp., previous admission, EMS record, old EKG, old radiological studies, urgent care reports/EKG's, group home records)? Report findings @ -I reviewed prior charts and prior lab work on this patient Differential Diagnosis (chest pain, altered mental status, abdominal pain women, abdominal pain men, vaginal bleeding, weakness, fever, dyspnea, syncope, headache, dizziness, GI bleed, back pain, seizure, CVA, palpatations, mental health, musculoskeletal)? @ -Differential Dizziness: Benign paroxysmal positional Vertigo, Menieres disease, otitis media, acoustic neuroma, vertebrobasilar insufficiency, cerebellar stroke, encephalitis, hypovolemic, arrhythmia, coronary artery syndrome, anemia, this is not meant to be an all-inclusive list EKG interpreted by me (3pts min.). @ -As above X-rays interpreted by me (1pt min.). @ -None done CT interpreted by me (1pt min.). @ -CT of the brain and CT of the C-spine showed no acute abnormality U/S interpreted by me (1pt. min.). @ -None done What testing was considered but not performed or refused? (CT, X-rays, U/S, labs)? Why? @ -None What meds were considered but not given or refused? Why? @ -None Did you discuss the management of the patient with other professionals (professionals i.e. , PA, [employer], lab, RT, psych nurse, social media strategist, glucose and syrup weigher, teacher, privacy officer, manager rn case)? Give summary @ -No Was smoking cessation discussed for >3mins.? @ -No Was critical care preformed (if so, how long)? @ -No Were there social determinants of health that impacted care today? How? (Homelessness, low income, unemployed, alcoholism, drug addiction, transportati on, low edu. Level, literacy, decrease access to med. care, residential, rehab)? @ -No Was there de-escalation of care discussed even if they declined (Discuss DNR or withdrawal of care, Hospice)? DNR status @ -No What co-morbidities impacted this encounter? (DM, HTN, Smoking, COPD, CAD, Cancer, CVA, ARF, Chemo, Hep., AIDS, mental health diagnosis, sleep apnea, morbid obesity)? @ -None Was patient admitted / discharged? Hospital course, mention meds given and route, prescriptions, significant lab abnormalities, going to OR and other pertinent info. @ -Patient received Ativan in the emergency department and felt considerably better and her symptoms seem to be improved as well. Patient states she has been having the symptoms of for anywhere is between 1 month and 4 to 5 months and some of the symptoms. Patient states she is already following up with her primary medical care doctor. Undiagnosed new problem with uncertain prognosis? @ -No Drug Therapy requiring intensive monitoring for toxicity (Heparin, Nitro, Insulin, Cardizem)? @ -No Were any procedures done? @ -No Diagnosis/symptom? @ -Paresthesias Acute, or Chronic, or Acute on Chronic? @ -Acute Uncomplicated (without systemic symptoms) or Complicated (systemic symptoms)? @ -Complicated Side effects of treatment? @ -No Exacerbation, Progression, or Severe Exacerbation? @ -No Poses a threat to life or bodily function? How? (Chest pain, [place], [place], pneumonia, PE, COPD, DKA, ARF, appy, cholecystitis, CVA, Diverticulitis, Homicidal, Kym cidal, threat to staff... and all critical care pts) @ -No Diagnosis/symptom? @ -Anxiety Acute, or Chronic, or Acute on Chronic? @ -Acute Uncomplicated (without systemic symptoms) or Complicated (systemic symptoms)? @ -Complicated Side effects of treatment? @ -None Exacerbation, Progression, or Severe Exacerbation] @ -No Poses a threat to life or bodily function? @ -No - Lab Data Result diagrams: 06/01/23 09:44 06/01/23 09:44 Lab Results 06/01/23 06/01/23 06/01/23 Range/Units 09:44 09:44 09:44 WBC 9.2 (3.8-10.6) k/uL RBC 4.83 (3.80-5.40) m/uL Hgb 13.8 (11.4-16.0) gm/dL Hct 41.8 (34.0-46.0) % MCV 86.5 (80.0-100.0) fL MCH 28.6 (25.0-35.0) pg MCHC 33.0 (31.0-37.0) g/dL RDW 12.3 (11.5-15.5) % Plt Count 248 (150-450) k/uL MPV 7.0 Neutrophils % 80 % Lymphocytes % 14 % Monocytes % 4 % Eosinophils % 1 % Basophils % 1 % Neutrophils # 7.4 (1.3-7.7) k/uL Lymphocytes # 1.3 (1.0-4.8) k/uL Monocytes # 0.3 (0-1.0) k/uL Eosinophils # 0.1 (0-0.7) k/uL Basophils # 0.1 (0-0.2) k/uL PT 10.0 (10.0-12.5) sec INR 0.9 (<1.2) APTT 23.5 (22.0-30.0) sec Sodium 132 L (137-145) mmol/L Potassium 4.9 (3.5-5.1) mmol/L Chloride 101 (98-107) mmol/L Carbon Dioxide 22 (22-30) mmol/L Anion Gap 9 mmol/L BUN 13 (7-17) mg/dL Creatinine 0.60 (0.52-1.04) mg/dL Est GFR (CKD-EPI)AfAm >90 (>60 ml/min/1.73 sqM) Est GFR (CKD-EPI)NonAf >90 (>60 ml/min/1.73 sqM) Glucose 106 H (74-99) mg/dL Calcium 9.5 (8.4-10.2) mg/dL Magnesium 2.0 (1.6-2.3) mg/dL Total Bilirubin 0.7 (0.2-1.3) mg/dL AST 29 (14-36) U/L ALT 16 (4-34) U/L Alkaline Phosphatase 88 (38-126) U/L Troponin I (0.000-0.034) ng/mL Total Protein 7.3 (6.3-8.2) g/dL Albumin 4.5 (3.5-5.0) g/dL 06/01/23 Range/Units 09:44 WBC (3.8-10.6) k/uL RBC (3.80-5.40) m/uL Hgb (11.4-16.0) gm/dL Hct (34.0-46.0) % MCV (80.0-100.0) fL MCH (25.0-35.0) pg MCHC (31.0-37.0) g/dL RDW (11.5-15.5) % Plt Count (150-450) k/uL MPV Neutrophils % % Lymphocytes % % Monocytes % % Eosinophils % % Basophils % % Neutrophils # (1.3-7.7) k/uL Lymphocytes # (1.0-4.8) k/uL Monocytes # (0-1.0) k/uL Eosinophils # (0-0.7) k/uL Basophils # (0-0.2) k/uL PT (10.0-12.5) sec INR (<1.2) APTT (22.0-30.0) sec Sodium (137-145) mmol/L Potassium (3.5-5.1) mmol/L Chloride (98-107) mmol/L Carbon Dioxide (22-30) mmol/L Anion Gap mmol/L BUN (7-17) mg/dL Creatinine (0.52-1.04) mg/dL Est GFR (CKD-EPI)AfAm (>60 ml/min/1.73 sqM) Est GFR (CKD-EPI)NonAf (>60 ml/min/1.73 sqM) Glucose (74-99) mg/dL Calcium (8.4-10.2) mg/dL Magnesium (1.6-2.3) mg/dL Total Bilirubin (0.2-1.3) mg/dL AST (14-36) U/L ALT (4-34) U/L Alkaline Phosphatase (38-126) U/L Troponin I <0.012 (0.000-0.034) ng/mL Total Protein (6.3-8.2) g/dL Albumin (3.5-5.0) g/dL Disposition Clinical Impression: Anxiety, Paresthesia Disposition: HOME SELF-CARE Condition: Good Instructions (If sedation given, give patient instructions): Paresthesia (ED), Anxiety (ED) Is patient prescribed a controlled substance at d/c from ED?: No Referrals: Audie Farris MD [Primary Care Provider] - 1-2 days Time of Disposition: 11:18
[2023-06-01 10:30] LABS: ALT 16 U/L (4-34); AST 29 U/L (14-36); African American GFR (CKD) >90 (>60 ml/min/1.73 sqM); Albumin 4.5 g/dL (3.5-5.0); Alkaline Phosphatase 88 U/L (38-126); Anion Gap 9 mmol/L; Blood Urea Nitrogen 13 mg/dL (7-17); Calcium 9.5 mg/dL (8.4-10.2); Carbon Dioxide 22 mmol/L (22-30); Chloride 101 mmol/L (98-107); Glucose 106 mg/dL (74-99); Non-African American GFR(CKD) >90 (>60 ml/min/1.73 sqM); Sodium 132 mmol/L (137-145); Total Bilirubin 0.7 mg/dL (0.2-1.3); Total Protein 7.3 g/dL (6.3-8.2)
[2023-06-01 10:31] LABS: Potassium 4.9 mmol/L (3.5-5.1)
[2023-06-01 12:00] VITALS: BP 163/89; PULSE 75; TEMP 98.7
== END 2023-06-01 11:50 | disposition home or self-care (01) ==
LOC: EC 08:51
DX: F41.9 Anxiety disorder, unspecified (principal); R20.2 Paresthesia of skin; I10 Essential (primary) hypertension; Z88.1 Allergy status to other antibiotic agents
CPT/HCPCS: 36415; 93005; 80053; 83735; 84484; 85025; 85610; 85730; 71046; 72125; 70450; 99285; 96374; J2060

== ENCOUNTER → 2023-06-11 | Outpatient (CLI) | payer OTHER ==
--- NOTE | 2023-06-12 11:26 | CT ---
EXAMINATION TYPE: CT angio abd aorta w/Runoff CT DLP: 1266.2 mGycm, Automated exposure control for dose reduction was used. DATE OF EXAM: 06/11/2023 11:34 AM COMPARISON: None CLINICAL INDICATION:Female, 58 years old with history of R09.89 OTHER SYM RESPIRATORY SYSTEM; PHH, le g numbness TECHNIQUE: Multiple thin slice sub-millimeter images were obtained after administration of contrast. 3-D reconstructed images and maximum intensity projection images were obtained. CT angio abd aorta w /Runoff CT Contrast: Contrast used:100 mL of Isovue 370 with IV Contrast, Oral contrast used: None FINDINGS: CTA Abdomen and pelvis: No evidence for aneurysmal dilation. Scattered atherosclerosis of the arteria l vasculature. 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 The inferior mesenteric artery. The inferior mesenteric artery is patent. There are single bilateral renal arteries which are patent . No evidence for significant stenosis of the remainder of the major branches of the aorta. The commo n iliac and external iliac arteries are patent. The common femoral, superficial femoral, and poplitea l arteries are patent bilaterally. The anterior and posterior tibial arteries are patent with both cr ossing the ankle bilaterally. No significant high-grade stenosis within the lower extremity vasculatu re. LOWER CHEST: No evidence of focal consolidation, pneumothorax or pleural effusion. LIVER: Unremarkable GALLBLADDER AND BILE DUCTS: Unremarkable. PANCREAS: Unremarkable. SPLEEN: Unremarkable. ADRENAL GLANDS: Unremarkable. KIDNEYS AND URETERS: No evidence of hydronephrosis or renal calculus. The ureters are unremarkable. PELVIS BLADDER: Unremarkable REPRODUCTIVE:Suspected postsurgical changes to the uterus. ABDOMEN & PELVIS STOMACH AND BOWEL: No evidence of bowel obstruction. Scattered colonic diverticula. The appendix is n ormal. PERITONEUM: No evidence of pneumoperitoneum or free fluid. VASCULATURE: No evidence of aortic aneurysm. MUSCULOSKELETAL: Moderate disc degeneration changes are present throughout the thoracolumbar spine. G rade 1 anterolisthesis of L4 and L5. LYMPH NODES: No gross evidence for lymphadenopathy. SOFT TISSUE/ABDOMINAL WALL: Fat-containing umbilical hernia. IMPRESSION 1. No evidence for aortic dissection or aneurysmal dilation. 2. 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 3. Mild atherosclerosis of the arterial vasculature. 4. Both anterior and posterior tibial arteries cross the ankle bilaterally. 5. No evidence for high-grade stenosis of the arterial vasculature of the legs.
== END | disposition home or self-care (01) ==
LOC: RADCTMAIN 10:30
PROVIDERS: ATTEND Family Medicine
DX: I70.8 Atherosclerosis of other arteries (principal); I77.4 Celiac artery compression syndrome; R09.89 Other specified symptoms and signs involving the circulatory and respiratory systems
CPT/HCPCS: 75635; Q9967

== ENCOUNTER 2023-07-01 20:50 | Emergency (ER) | payer OTHER ==
--- NOTE | 2023-07-01 20:59 | ED ---
Neuro HPI - General Chief Complaint: Neuro Symptoms/Deficit Stated Complaint: Poss Stroke Time Seen by Provider: 07/01/23 20:59 Source: patient, EMS, RN notes reviewed, old records reviewed Mode of arrival: EMS Limitations: no limitations - History of Present Illness Is the patient presenting with stroke symptoms?: Yes -: hour(s) (2) Initial Comments: This is a 58-year-old female to the ER for evaluation today. Patient presents by EMS for evaluation of acute CVA. Around 6:30 PM tonight she was acting normally without complaint and they lay down for a nap when she woke up tonight she went for a walk in the house and collapsed to the ground with inability move left leg left arm and talking like she was drunk per the . Conversely over the past 4 to 5 weeks has been doing some left arm tingling and numbness diagnosed with paresthesias and recently has been diagnosed with cervical parest hesias and put on steroids. Patient believes the steroids have been making her symptoms worse. Significant weakness and debility including left-sided deficits started just prior to arrival the patient was brought to the emergency department by EMS, family called EMS secondary to inability to get the patient off the ground from weakness as well as her slurred speech and concern for stroke Location: speech, left face, dysarthria, left arm, left leg Severity: moderate Quality: weak, numb, tingling Improves With: none Context: sudden onset Associated Symptoms: denies other symptoms Treatments Prior to Arrival: none - Related Data Home Medications: Home Medications Medication Instructions Recorded Confirmed Multivitamins, Thera [Multivitamin 1 tab PO DAILY 06/20/19 06/20/19 (formulary)] Clements-3 Fatty Acids/Fish Oil [Fish 1 cap PO DAILY 06/20/19 06/20/19 Oil 1,000 mg Softgel] Previous Rx's Medication Instructions Recorded Levothyroxine Sodium [Synthroid] 100 mcg PO DAILY@0630 #30 tab 06/21/19 amLODIPine [Norvasc] 5 mg PO DAILY #30 tab 06/21/19 Allergies/Adverse Reactions: Allergies Allergy/AdvReac Type Severity Reaction Status Date / Time azithromycin [From Zithromax] Allergy Unknown Verified 06/01/23 09:05 Review of Systems ROS Statement: Those systems with pertinent positive or pertinent negative responses have been documented in the HPI. ROS Other: All systems not noted in ROS Statement are negative. General Exam - General Exam Comments Initial Comments: NIH of 6 Limitations: no limitations General appearance: alert, in no apparent distress, anxious, in distress Head exam: Present: atraumatic, normocephalic, normal inspection Eye exam: Present: normal appearance, PERRL, EOMI. Absent: scleral icterus, conjunctival injection, periorbital swelling ENT exam: Present: normal exam, mucous membranes moist Neck exam: Present: normal inspection. Absent: tenderness, meningismus, lymphadenopathy Respiratory exam: Present: normal lung sounds bilaterally. Absent: respiratory distress, wheezes, rales, rhonchi, stridor Cardiovascular Exam: Present: regular rate, normal rhythm, normal heart sounds. Absent: systolic murmur, diastolic murmur, rubs, gallop, clicks GI/Abdominal exam: Present: soft, normal bowel sounds. Absent: distended, tenderness, guarding, rebound, rigid Extremities exam: Present: normal inspection, full ROM, normal capillary refill. Absent: tenderness, pedal edema, joint swelling, calf tenderness Back exam: Present: normal inspection Neurological exam: Present: alert, oriented X3, CN II-XII intact Psychiatric exam: Present: normal affect, normal mood Skin exam: Present: warm, dry, intact, normal color. Absent: rash Stroke MDM - Lab Data Result diagrams: 07/01/23 21:03 07/01/23 21:03 Lab Results 07/01/23 07/01/23 07/01/23 Range/Units 20:58 21:03 21:03 WBC 10.7 H (3.8-10.6) k/uL RBC 4.59 (3.80-5.40) m/uL Hgb 13.6 (11.4-16.0) gm/dL Hct 39.0 (34.0-46.0) % MCV 85.0 (80.0-100.0) fL MCH 29.7 (25.0-35.0) pg MCHC 34.9 (31.0-37.0) g/dL RDW 12.3 (11.5-15.5) % Plt Count 241 (150-450) k/uL MPV 6.8 Neutrophils % 86 % Lymphocytes % 8 % Monocytes % 5 % Eosinophils % 1 % Basophils % 0 % Neutrophils # 9.2 H (1.3-7.7) k/uL Lymphocytes # 0.9 L (1.0-4.8) k/uL Monocytes # 0.5 (0-1.0) k/uL Eosinophils # 0.1 (0-0.7) k/uL Basophils # 0.0 (0-0.2) k/uL PT 10.0 (10.0-12.5) sec INR 0.9 (<1.2) APTT 20.1 L (22.0-30.0) sec Sodium (137-145) mmol/L Potassium (3.5-5.1) mmol/L Chloride (98-107) mmol/L Carbon Dioxide (22-30) mmol/L Anion Gap mmol/L BUN (7-17) mg/dL Creatinine (0.52-1.04) mg/dL Est GFR (CKD-EPI)AfAm (>60 ml/min/1.73 sqM) Est GFR (CKD-EPI)NonAf (>60 ml/min/1.73 sqM) Glucose (74-99) mg/dL POC Glucose (mg/dL) 139 H (70-110) mg/dL POC Glu Patient Transportation Driver ID Odin Vallecillo Calcium (8.4-10.2) mg/dL Total Bilirubin (0.2-1.3) mg/dL AST (14-36) U/L ALT (4-34) U/L Alkaline Phosphatase (38-126) U/L Creatine Kinase (30-135) U/L Troponin I (0.000-0.034) ng/mL Total Protein (6.3-8.2) g/dL Albumin (3.5-5.0) g/dL 07/01/23 07/01/23 Range/Units 21:03 21:03 WBC (3.8-10.6) k/uL RBC (3.80-5.40) m/uL Hgb (11.4-16.0) gm/dL Hct (34.0-46.0) % MCV (80.0-100.0) fL MCH (25.0-35.0) pg MCHC (31.0-37.0) g/dL RDW (11.5-15.5) % Plt Count (150-450) k/uL MPV Neutrophils % % Lymphocytes % % Monocytes % % Eosinophils % % Basophils % % Neutrophils # (1.3-7.7) k/uL Lymphocytes # (1.0-4.8) k/uL Monocytes # (0-1.0) k/uL Eosinophils # (0-0.7) k/uL Basophils # (0-0.2) k/uL PT (10.0-12.5) sec INR (<1.2) APTT (22.0-30.0) sec Sodium 125 L (137-145) mmol/L Potassium 4.1 (3.5-5.1) mmol/L Chloride 93 L (98-107) mmol/L Carbon Dioxide 22 (22-30) mmol/L Anion Gap 10 mmol/L BUN 18 H (7-17) mg/dL Creatinine 0.85 (0.52-1.04) mg/dL Est GFR (CKD-EPI)AfAm 86 (>60 ml/min/1.73 sqM) Est GFR (CKD-EPI)NonAf 75 (>60 ml/min/1.73 sqM) Glucose 143 H (74-99) mg/dL POC Glucose (mg/dL) (70-110) mg/dL POC Glu Patient Transportation Driver ID Calcium 9.1 (8.4-10.2) mg/dL Total Bilirubin 0.8 (0.2-1.3) mg/dL AST 24 (14-36) U/L ALT 17 (4-34) U/L Alkaline Phosphatase 97 (38-126) U/L Creatine Kinase 71 (30-135) U/L Troponin I <0.012 (0.000-0.034) ng/mL Total Protein 6.6 (6.3-8.2) g/dL Albumin 4.2 (3.5-5.0) g/dL - NIH Stroke Scale 1a. Level of Consciousness: (0) alert 1b. LOC Questions: (0) answers correctly 1c. LOC Commands: (0) performs tasks correctly 2. Best Gaze: (1) partial gaze palsy 3. Visual: (0) no visual loss 4. Facial Palsy: (0) normal symmetrical movement 5a. Motor Arm Left: (3) no gravity effort 5b. Motor Arm Right: (0) no drift 6a. Motor Leg Left: (1) drift 6b. Motor Leg Right: (0) no drift 7. Limb Ataxia: (1) present 1 limb 8. Sensory: (0) normal 9. Best Language: (1) mild/moderate aphasia 10. Dysarthria: (0) normal 11. Extinction/Inattention: (0) no abnormality - Thrombolytic Inclusion/Exclusion Thrombolytic Inclusion Criteria: Symptom Onset < 4.5 h - Medical Decision Making 58 female to ER for evaluation of acute onset of CVA. Acute onset of CVA symptoms. Patient elected to go forward with tPA here in the emergency department and will be transferred for neurological intervention - Radiology Data Radiology results: report reviewed, image reviewed - EKG Data -: EKG Interpreted by Me Past Medical History Past Medical History: Hypertension, Thyroid Disorder History of Any Multi-Drug Resistant Organisms: None Reported Past Surgical History: Orthopedic Surgery Additional Past Surgical History / Comment(s): cervical fusion Past Psychological History: No Psychological Hx Reported Smoking Status: Never smoker Past Alcohol Use History: Occasional Past Drug Use History: None Reported - Past Family History Mother Brother(s) Family Medical History: Hypertension Course Vital Signs 07/01/23 07/01/23 07/01/23 21:18 21:32 22:04 Pulse Rate 67 62 66 Respiratory 16 16 16 Rate Blood Pressure 178/95 177/91 178/92 O2 Sat by Pulse 97 100 99 Oximetry 07/01/23 22:08 Pulse Rate 68 Respiratory 16 Rate Blood Pressure 176/90 O2 Sat by Pulse 100 Oximetry - Reevaluation(s) Reevaluation #1: 07/01/23 21:00 Medical records reviewed 07/01/23 21:00 Code thrombolytic was paged on patient arrival Reevaluation #2: 07/01/23 21:58 Patient has no change in symptoms here in the ER After multiple conversations with neuro interventionalists, radiologist as well as the family Decision was made to go through with t thrombolytics Family and patient both decide with at bedside the patient would rather be then paralyzed and are very reluctant at first to give tPA Cause for tPA delay was multiple Onset of action and onset of timing of symptoms was difficult at first to ascertain with family not at bedside family was unsure if needed or necessary to give t thrombolytics Neuro interventionalists did not want to go through with thrombolytics or treatment secondary to changes on CT brain without contrast Patient also remained severely hypertensive needing labetalol treatments to get blood pressure within equitable range for administration Reevaluation #3: 07/01/23 21:58 Patient family informed of results questions answered Multiple discussions with family with result being patient would rather be then paralyzed Reevaluation #4: Was pt. sent in by a medical professional or institution ([facility], [facility], urgent care, hospital, or custodial...) When possible be specific @ -no Did you speak to anyone other than the patient for history (EMS, parent, family, police, friend...)? What history was obtained from this source @ -no Did you review nursing and triage notes (agree or disagree)? Why? @ -agree Are old charts reviewed (outside hosp., previous admission, EMS record, old EKG, old radiological studies, urgent care reports/EKG's, custodial records)? Re port findings @ -yes Differential Diagnosis (chest pain, altered mental status, abdominal pain women, abdominal pain men, vaginal bleeding, weakness, fever, dyspnea, syncope, headache, dizziness, GI bleed, back pain, seizure, CVA, palpatations, mental health, musculoskeletal)? @ -prior EKG interpreted by me (3pts min.). @ -yes X-rays interpreted by me (1pt min.). @ -yes negative for acute disease CT interpreted by me (1pt min.). @ -Yes with significant CVA and acute occlusion U/S interpreted by me (1pt. min.). @ -no What testing was considered but not performed or refused? (CT, X-rays, U/S, labs)? Why? @ -none What meds were considered but not given or refused? Why? @ -none Did you discuss the management of the patient with other professionals (professionals i.e. [facility], [facility], lab, RT, psych nurse, clinical social work aide, climatology teacher, teacher, navigation officer, child support case officer)? Give summary @ -no Was smoking cessation discussed for >3mins.? @ -no Was critical care preformed (if so, how long)? @ -yes65 Were there social determinants of health that impacted care today? How? (Homelessness, low income, unemployed, alcoholism, drug addiction, transportation, low edu. Level, literacy, decrease access to med. care, fci, rehab)? @ -none Was there de-escalation of care discussed even if they declined (Discuss DNR or withdrawal of care, Hospice)? DNR status @ -no What co-morbidities impacted this encounter? (DM, HTN, Smoking, COPD, CAD, Cancer, CVA, ARF, Chemo, Hep., AIDS, mental health diagnosis, sleep apnea, morbid obesity)? @ -none Was patient admitted / discharged? Hospital course, mention meds given and route, prescriptions, significant lab abnormalities, going to OR and other p ertinent info. @ - 58 female to ER for evaluation of acute onset of CVA. Acute onset of CVA symptoms. Patient elected to go forward with tPA here in the emergency department and will be transferred for neurological intervention Transferred Admitted to inpatient Undiagnosed new problem with uncertain prognosis? @ -no Drug Therapy requiring intensive monitoring for toxicity (Heparin, Nitro, Insu marsha, Cardizem)? @ -no Were any procedures done? @ -no Diagnosis/symptom? @ -CVA Acute, or Chronic, or Acute on Chronic? @ -Acute Uncomplicated (without systemic symptoms) or Complicated (systemic symptoms)? @ -Complicated Side effects of treatment? @ -no Exacerbation, Progression, or Severe Exacerbation? @ -exacerbation Poses a threat to life or bodily function? How? (Chest pain, USA, MA, pneumonia, PE, COPD, DKA, ARF, appy, cholecystitis, CVA, Diverticulitis, Homicidal, Suicidal, threat to staff... and all critical care pts) @ -yes with significant CVA Reevaluation #5: Differential CVA Ischemic stroke, hemorrhagic stroke, brain tumor, atypical migraine, Wernicke's encephalopathy, seizure, multiple sclerosis, meningitis, encephalitis, hypoglycemia, Guillain-Carmichael, electrolytes disturbance, myasthenia gravis.... This is not meant to be an all-inclusive list - Consultations Consultation #1: Multiple conversations with the neurointerventional list, decision to go forward with tPA Consultation #2: Spoke with [facility] who agrees to accept the patient in transfer Critical Care Time Critical Care Time: Yes Total Critical Care Time: 65 Disposition Clinical Impression: Cerebrovascular accident (CVA), Hypertension Disposition: OTHER INSTITUTION NOT DEFINED Condition: Critical Is patient prescribed a controlled substance at d/c from ED?: No Referrals: Audie Farris MD [Primary Care Provider] - 1-2 days Time of Disposition: 21:55 - Out of Hospital Transfer - Req. Specs Out of Hospital Transfer - Requested Specifics: Other Emergency Center ([facility])
[2023-07-01 21:00] LABS: Glucose,Whole Blood 139 mg/dL (70-110)
[2023-07-01] MEDS: LABETALOL 5 MG/ML VIAL MDV IVP STA ×4 (21:04→21:57)
[2023-07-01 21:08] LABS: Basophils % (A) 0 %; Eosinophils # (A) 0.1 k/uL (0-0.7); Eosinophils % (A) 1 %; HGB 13.6 gm/dL (11.4-16.0); Lymphocytes # (A) 0.9 k/uL (1.0-4.8); Lymphocytes % (A) 8 %; MCH 29.7 pg (25.0-35.0); MCHC 34.9 g/dL (31.0-37.0); Mean Platelet Volume 6.8; Monocytes # (A) 0.5 k/uL (0-1.0); Monocytes % (A) 5 %; Neutrophils # (A) 9.2 k/uL (1.3-7.7); Neutrophils % (A) 86 %; Platelet Count 241 k/uL (150-450); RBC 4.59 m/uL (3.80-5.40); RDW 12.3 % (11.5-15.5); WBC 10.7 k/uL (3.8-10.6)
[2023-07-01 21:22] LABS: ALT 17 U/L (4-34); AST 24 U/L (14-36); African American GFR (CKD) 86 (>60 ml/min/1.73 sqM); Albumin 4.2 g/dL (3.5-5.0); Alkaline Phosphatase 97 U/L (38-126); Anion Gap 10 mmol/L; Blood Urea Nitrogen 18 mg/dL (7-17); Calcium 9.1 mg/dL (8.4-10.2); Carbon Dioxide 22 mmol/L (22-30); Chloride 93 mmol/L (98-107); Creatine Kinase 71 U/L (30-135); Glucose 143 mg/dL (74-99); Non-African American GFR(CKD) 75 (>60 ml/min/1.73 sqM); Potassium 4.1 mmol/L (3.5-5.1); Sodium 125 mmol/L (137-145); Total Bilirubin 0.8 mg/dL (0.2-1.3); Total Protein 6.6 g/dL (6.3-8.2)
--- NOTE | 2023-07-01 21:22 | CT ---
EXAMINATION TYPE: CODE STROKE: CT brain wo contr CT DLP: 1099 mGycm, Automated exposure control for dose reduction was used. DATE OF EXAM: 07/01/2023 9:14 PM COMPARISON: None. CLINICAL INDICATION:Female, 58 years old with history of Neuro deficit, acute, stroke suspected, Neur o deficit, acute, stroke suspected TECHNIQUE: Brain: Axial CT images of the brain were obtained with coronal and sagittal reformats created and rev iewed. Contrast used: None. Oral contrast used: None. FINDINGS: Brain: Extra-axial spaces: No abnormal extra-axial fluid collections. Ventricular system: Within normal limits Cerebral parenchyma: No evidence of intracranial hemorrhage. Multiple regions of hypoattenuation loss throughout the right MCA territory are appreciated, most pronounced in the right frontal and right p arietal temporal lobes/insula. Nonspecific focus of hypoattenuation is present within the left superi or parietal lobe, likely represents chronic ischemic microvascular disease. Cerebellum: Unremarkable. Mass effect: Loss of the peripheral sulci and the previously described regions of hypoattenuation. Intracranial vasculature: Slightly hyperdense right MCA sign. Soft tissues: Normal. Calvarium/osseous structures: No depressed skull fracture. Paranasal sinuses and mastoid air cells: Mild scattered paranasal sinus disease. Visualized orbits: Orbital contents are intact. IMPRESSION: 1. Findings concerning for acute/subacute infarcts involving the right MCA territory. No evidence of intracranial hemorrhage 2. Slightly hyperdense right MCA, may represent underlying thrombus. Findings were called to and discussed with sandy Sanz on 07/01/[address] Joseph.
[2023-07-01 21:25] LABS: INR 0.9 (<1.2)
[2023-07-01] MEDS: SODIUM CHLORIDE 0.9% 1,000 ML IV STA (21:25)
[2023-07-01 21:28] LABS: Partial Thromboplastin Time 20.1 sec (22.0-30.0)
[2023-07-01 21:36] VITALS: RESP 16
--- NOTE | 2023-07-01 21:52 | CT ---
EXAMINATION TYPE: CT angio head neck CT DLP: 479.2 mGycm, Automated exposure control for dose reduction was used. DATE OF EXAM: 07/01/2023 9:41 PM COMPARISON: CT head same day. CLINICAL INDICATION:Female, 58 years old with history of Neuro deficit, acute, stroke suspected; PHH, neuro deficit TECHNIQUE: Axially acquired helical CT angiogram of the head and neck was obtained with contrast. Axi al images are supplemented with 3D reconstructions which [facility] NASCET criteria used. Contrast used:65cc mL of Isovue 300 with IV Contrast, Oral contrast used: None. FINDINGS: CTA HEAD: There is nonvisualization of the intracranial right internal carotid artery. There is paucity of vasc ulature of absence of the right MCA. The right anterior cerebral artery is patent. The left internal carotid artery and MCA are patent. Th e left anterior cerebral artery is patent. The posterior communicating arteries are not well visualized. Left dominant vertebrobasilar system. The right vertebral artery terminates into the right PICA. The posterior cerebral arteries are patent. The basilar and vertebral arteries are patent. CTA NECK: Right Carotid System: There is complete occlusion of the internal carotid artery just distal to the bifurcation area of sig nificant atherosclerotic plaquing. No evidence of string sign is appreciated. The origin of the right external carotid artery demonstrates severe stenosis. Left Carotid System: Atherosclerotic plaquing with less than 50% stenosis of the carotid bulb. The internal carotid artery is patent. The vertebral arteries are diminutive bilaterally. 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 There is a three-vessel aortic arch. The origins of the great vessels are patent. Upper thorax: IMPRESSION: 1. 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 2. Persistent left hypoglossal artery.
[2023-07-01] MEDS: T.ENECTEPLASE 5 MG/ML VIAL IVP STA (22:01)
[2023-07-01 22:40] VITALS: BP 176/90; PULSE 68
== END 2023-07-01 22:25 | disposition other institution (70) ==
LOC: EC 20:50
DX: I63.9 Cerebral infarction, unspecified (principal); I10 Essential (primary) hypertension; Z88.1 Allergy status to other antibiotic agents
CPT/HCPCS: 99291 ×2; 96374 ×2; 96376 ×2; 96361 ×2; 36415; 93005; 80053; 82550; 84484; 85025; 85610; 85730; 70496; 70450; 70498; J3101; Q9967; J1920

== ENCOUNTER → 2023-07-17 | Outpatient (CLI) | payer OTHER ==
--- NOTE | 2023-07-17 12:04 | US ---
EXAMINATION TYPE: US lower ext pseudo artery RT DATE OF EXAM: 07/17/2023 COMPARISON: NONE CLINICAL INDICATION: Female, 58 years old with history of I72.4 ANEURYSM OF ARTERY OF LOWER EXTREMITY ; Pt states recent stroke, pt had procedure done at outside facility with right groin approach 9 days ago, pt having lump and bruising right groin EXAM PERFORMED: Grayscale and color Doppler duplex imaging performed of the groin, post cardiac casandra ter to assess for pseudoaneurysm. SIDE PERFORMED: Right Color and Waveform Doppler performed to assess for the presence of pseudoaneurysm; Is there ultrasound evidence of a pseudoaneurysm: No Is there evidence of AV shunting: No Is there a fluid collection present: Yes, within right groin= 8.9 x 2.8 x 5.7 cm- ?hematoma- no vascu larity is visualized in this area IMPRESSION: 1. No evidence for pseudoaneurysm. 2. Left groin seroma/hematoma.
== END | disposition home or self-care (01) ==
LOC: RADUSWWP 10:54
PROVIDERS: ATTEND Family Medicine
DX: I72.4 Aneurysm of artery of lower extremity (principal)
CPT/HCPCS: 93975

== ENCOUNTER 2023-08-07 11:50 | Inpatient (IN) | payer OTHER ==
--- NOTE | 2023-08-07 12:37 | ED ---
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 States that her symptoms have been going on for the past 3 days. She went to [facility] last night and had cardiac enzymes tested which were negative. She was sent home and followed up with her primary care doctor today. Primary care doctor recommended that the patient be evaluated once again as she was reporting with 2 right-sided symptoms with known recent stroke. She admits to mild, chronic headaches since her stroke. She denies any speech changes. No visual disturbance. Denies any weakness in her lower extremities. She does take her Brilinta as directed. No missed doses. Patient denies any cardiac history. She saw her primary care doctor today who sent her into the hospital for further evaluation. She is found to have hypertension in office. Patient used to take lisinopril 5 mg but was taken off while hospitalized. No other alleviating, precipitating or modifying factors - Related Data Home Medications Medication Instructions Recorded Confirmed Multivitamins, Thera [Multivitamin 1 tab PO DAILY@1200 06/20/19 08/07/23 (formulary)] [place]-3 Fatty Acids/Fish Oil [Fish 1 cap PO DAILY 06/20/19 08/07/23 Oil 1,000 mg Softgel] ALPRAZolam [Xanax] 0.125 mg PO DAILY PRN 08/07/23 08/07/23 Acetaminophen Tab [Tylenol Tab] 1,000 mg PO Q6H PRN 08/07/23 08/07/23 Aspirin EC [Ecotrin Low Dose] 81 mg PO DAILY@0700 08/07/23 08/07/23 Atorvastatin [Lipitor] 40 mg PO HS 08/07/23 08/07/23 Cephalexin [Keflex] 500 mg PO Q6H 08/07/23 08/07/23 FLUoxetine HCL [PROzac] 10 mg PO DAILY 08/07/23 08/07/23 High Potency Vitamin D3 5000iu 125 mcg PO DAILY@1200 08/07/23 08/07/23 Levothyroxine Sodium [Synthroid] 44 mcg PO BOWLES@0630 08/07/23 08/07/23 Levothyroxine Sodium [Synthroid] 88 mcg PO MOTUWETHFRSA@0630 08/07/23 08/07/23 Magnesium Glycinate 350mg 350 mg PO BID-W/MEALS 08/07/23 08/07/23 Ondansetron Odt [Zofran Odt] 4 mg PO Q12H PRN 08/07/23 08/07/23 Ticagrelor [Brilinta] 90 mg PO BID-W/MEALS 08/07/23 08/07/23 Allergies Allergy/AdvReac Type Severity Reaction Status Date / Time azithromycin [From Zithromax] AdvReac Nausea & Verified 08/07/23 13:48 Vomiting cyclobenzaprine AdvReac lethargic Verified 08/07/23 13:48 [From Flexeril] unknown diuretic AdvReac depleted Uncoded 08/07/23 13:48 electrolytes Review of Systems ROS Statement: Those systems with pertinent positive or pertinent negative responses have been documented in the HPI. ROS Other: All systems not noted in ROS Statement are negative. Past Medical History Past Medical History: Hypertension, Thyroid Disorder History of Any Multi-Drug Resistant Organisms: None Reported Past Surgical History: Orthopedic Surgery Additional Past Surgical History / Comment(s): cervical fusion Past Psychological History: No Psychological Hx Reported Smoking Status: Never smoker Past Alcohol Use History: Occasional Past Drug Use History: None Reported - Past Family History Mother Brother(s) Family Medical History: Hypertension General Exam Limitations: no limitations General appearance: alert, in no apparent distress Head exam: Present: atraumatic, normocephalic, normal inspection Eye exam: Present: normal appearance, PERRL, EOMI. Absent: scleral icterus, conjunctival injection, periorbital swelling ENT exam: Present: normal exam, mucous membranes moist Neck exam: Present: normal inspection. Absent: tenderness, meningismus, lymphadenopathy Respiratory exam: Present: normal lung sounds bilaterally. Absent: respiratory distress, wheezes, rales, rhonchi, stridor Cardiovascular Exam: Present: regular rate, normal rhythm, normal heart sounds. Absent: systolic murmur, diastolic murmur, rubs, gallop, clicks GI/Abdominal exam: Present: soft, normal bowel sounds. Absent: distended, tenderness, guarding, rebound, rigid Extremities exam: Present: normal inspection, full ROM, normal capillary refill. Absent: tenderness, pedal edema, joint swelling, calf tenderness Back exam: Present: normal inspection Neurological exam: Present: alert, oriented X3, CN II-XII intact Psychiatric exam: Present: normal affect, normal mood Skin exam: Present: warm, dry, intact, normal color. Absent: rash Course Vital Signs 08/07/23 08/07/23 08/07/23 11:52 13:01 14:10 Temperature 97.7 F 98.0 F Pulse Rate 87 67 65 Respiratory 18 17 17 Rate Blood Pressure 178/95 195/102 196/98 O2 Sat by Pulse 98 98 99 Oximetry 08/07/23 08/07/23 08/07/23 14:30 14:49 15:07 Temperature 98.0 F Pulse Rate 70 73 83 Respiratory 17 16 18 Rate Blood Pressure 195/100 192/114 207/105 O2 Sat by Pulse 98 98 100 Oximetry 08/07/23 08/07/23 08/07/23 16:01 16:30 17:18 Temperature 98.1 F 98.0 F Pulse Rate 63 64 65 Respiratory 16 17 17 Rate Blood Pressure 183/99 156/92 167/90 O2 Sat by Pulse 100 98 98 Oximetry 08/07/23 08/07/23 18:08 21:33 Temperature 98.0 F Pulse Rate 71 75 Respiratory 17 18 Rate Blood Pressure 149/93 109/67 O2 Sat by Pulse 98 98 Oximetry Medical Decision Making - Medical Decision Making Was pt. sent in by a medical professional or institution (, PA, GEOSPATIAL TECHNICIAN, urgent care, hospital, or residential...) When possible be specific @ -No Did you speak to anyone other than the patient for history (EMS, parent, family, police, friend...)? What history was obtained from this source @ -Spoke with the patient's in regards to symptoms. Also spoke with the primary care practitioner who sent the patient in Did you review nursing and triage notes (agree or disagree)? Why? @ -I reviewed and agree with nursing and triage notes Were old charts reviewed (outside hosp., previous admission, EMS record, old EKG, old radiological studies, urgent care reports/EKG's, residential records)? Report findings @ -I reviewed patient's previous hospitalization from June 30 when she had a her stroke Differential Diagnosis (chest pain, altered mental status, abdominal pain women, abdominal pain men, vaginal bleeding, weakness, fever, dyspnea, syncope, headache, dizziness, GI bleed, back pain, seizure, CVA, palpatations, mental health, musculoskeletal)? @ -Differential Chest Pain: Stable Angina, Unstable Angina, STEMI, NSTEMI Aortic Dissection, Pneumothorax, Musculoskeletal, Esophageal Spasm GERD, Cholecystitis, Pancreatitis, Zoster, this is not meant to be an all-inclusive list. EKG interpreted by me (3pts min.). @ -Yes and demonstrates sinus rhythm with a rate of 76. FL interval 155. QRS 87. QTc of 428. No acute ST segment elevations or depressions X-rays interpreted by me (1pt min.). @ -Yes and demonstrates no acute process CT interpreted by me (1pt min.). @ -Yes and demonstrates subacute CVAs however no acute CVA U/S interpreted by me (1pt. min.). @ -None done What testing was considered but not performed or refused? (CT, X-rays, U/S, labs)? Why? @ -None What meds were considered but not given or refused? Why? @ -None Did you discuss the management of the patient with other professionals (professionals i.e. DrDaniela, PA, GEOSPATIAL TECHNICIAN, lab, RT, psych nurse, high school social science teacher, hull sorter, teacher, systems support officer, piano case and bench assembler)? Give summary @ -Spoke with Dr. Segura. Patient will be admitted Was smoking cessation discussed for >3mins.? @ -No Was critical care preformed (if so, how long)? @ -No Were there social determinants of health that impacted care today? How? (Homelessness, low income, unemployed, alcoholism, drug addiction, transportation, low edu. Level, literacy, decrease access to med. care, long term, rehab)? @ -No Was there de-escalation of care discussed even if they declined (Discuss DNR or withdrawal of care, Hospice)? DNR status @ -No What co-morbidities impacted this encounter? (DM, HTN, Smoking, COPD, CAD, Cancer, CVA, ARF, Chemo, Hep., AIDS, mental health diagnosis, sleep apnea, morbid obesity)? @ -History of CVA Was patient admitted / discharged? Hospital course, mention meds given and route, prescriptions, significant lab abnormalities, going to OR and other pertinent info. @ -Upon arrival patient was placed into room 4. Thorough history and physical exam was performed. NIH is 0 however patient is reporting to subjective paresthesias in her right arm. IV was established. Laboratory studies are conducted including a troponin level. Chest x-ray was performed. Patient does go for CT and CT angiography of her brain due to her reported right-sided paresthesias with recent stroke. It does demonstrate subacute CVAs. No acute CVA. Patient is markedly hypertensive. I did recommend admission for neurologic evaluation and control of her high blood pressure. Patient was agreeable to this. Spoke with Dr. Segura agreeable to admit the patient does present to the emergency department to see her. Patient is pending a bed on the floor in stable condition Undiagnosed new problem with uncertain prognosis? @ -Yes Drug Therapy requiring intensive monitoring for toxicity (Heparin, Nitro, Insulin, Cardizem)? @ -No Were any procedures done? @ -No Diagnosis/symptom? @ -Acute right arm paresthesias, acute chest pain, accelerated hypertension, recent CVA Acute, or Chronic, or Acute on Chronic? @ -Acute Uncomplicated (without systemic symptoms) or Complicated (systemic symptoms)? @ -Complicated Side effects of treatment? @ -No Exacerbation, Progression, or Severe Exacerbation? @ -No Poses a threat to life or bodily function? How? (Chest pain, [place], [place], pneumonia, PE, COPD, DKA, ARF, appy, cholecystitis, CVA, Diverticulitis, Homicidal, Suicidal, threat to staff... and all critical care pts) @ -No - Lab Data Result diagrams: 08/07/23 12:42 08/07/23 12:42 Lab Results 08/07/23 08/07/23 08/07/23 Range/Units 12:42 12:42 12:42 WBC 9.1 (3.8-10.6) k/uL RBC 4.21 (3.80-5.40) m/uL Hgb 12.3 (11.4-16.0) gm/dL Hct 37.5 (34.0-46.0) % MCV 89.0 (80.0-100.0) fL MCH 29.3 (25.0-35.0) pg MCHC 32.9 (31.0-37.0) g/dL RDW 13.6 (11.5-15.5) % Plt Count 222 (150-450) k/uL MPV 6.9 Neutrophils % 79 % Lymphocytes % 14 % Monocytes % 3 % Eosinophils % 1 % Basophils % 1 % Neutrophils # 7.2 (1.3-7.7) k/uL Lymphocytes # 1.3 (1.0-4.8) k/uL Monocytes # 0.3 (0-1.0) k/uL Eosinophils # 0.1 (0-0.7) k/uL Basophils # 0.1 (0-0.2) k/uL PT 9.8 L (10.0-12.5) sec INR 0.9 (<1.2) APTT 24.2 (22.0-30.0) sec Sodium 132 L (137-145) mmol/L Potassium 5.6 H (3.5-5.1) mmol/L Chloride 101 (98-107) mmol/L Carbon Dioxide 23 (22-30) mmol/L Anion Gap 8 mmol/L BUN 12 (7-17) mg/dL Creatinine 0.67 (0.52-1.04) mg/dL Est GFR (CKD-EPI)AfAm >90 (>60 ml/min/1.73 sqM) Est GFR (CKD-EPI)NonAf >90 (>60 ml/min/1.73 sqM) Glucose 99 (74-99) mg/dL Calcium 9.4 (8.4-10.2) mg/dL Total Bilirubin 1.0 (0.2-1.3) mg/dL AST 42 H (14-36) U/L ALT 22 (4-34) U/L Alkaline Phosphatase 106 (38-126) U/L Creatine Kinase 49 (30-135) U/L Troponin I (0.000-0.034) ng/mL Total Protein 7.1 (6.3-8.2) g/dL Albumin 4.3 (3.5-5.0) g/dL 08/07/23 Range/Units 12:42 WBC (3.8-10.6) k/uL RBC (3.80-5.40) m/uL Hgb (11.4-16.0) gm/dL Hct (34.0-46.0) % MCV (80.0-100.0) fL MCH (25.0-35.0) pg MCHC (31.0-37.0) g/dL RDW (11.5-15.5) % Plt Count (150-450) k/uL MPV Neutrophils % % Lymphocytes % % Monocytes % % Eosinophils % % Basophils % % Neutrophils # (1.3-7.7) k/uL Lymphocytes # (1.0-4.8) k/uL Monocytes # (0-1.0) k/uL Eosinophils # (0-0.7) k/uL Basophils # (0-0.2) k/uL PT (10.0-12.5) sec INR (<1.2) APTT (22.0-30.0) sec Sodium (137-145) mmol/L Potassium (3.5-5.1) mmol/L Chloride (98-107) mmol/L Carbon Dioxide (22-30) mmol/L Anion Gap mmol/L BUN (7-17) mg/dL Creatinine (0.52-1.04) mg/dL Est GFR (CKD-EPI)AfAm (>60 ml/min/1.73 sqM) Est GFR (CKD-EPI)NonAf (>60 ml/min/1.73 sqM) Glucose (74-99) mg/dL Calcium (8.4-10.2) mg/dL Total Bilirubin (0.2-1.3) mg/dL AST (14-36) U/L ALT (4-34) U/L Alkaline Phosphatase (38-126) U/L Creatine Kinase (30-135) U/L Troponin I 0.016 (0.000-0.034) ng/mL Total Protein (6.3-8.2) g/dL Albumin (3.5-5.0) g/dL Disposition Clinical Impression: Arm paresthesia, right, Hx of ischemic right MCA stroke, Chest pain, Hypertension Disposition: ADMITTED IP TO [facility] Condition: Serious Is patient prescribed a controlled substance at d/c from ED?: No Time of Disposition: 15:16 Decision to Admit Reason: Admit from EC Decision Date: 08/07/23 Decision Time: 15:16
[2023-08-07 12:59] LABS: Basophils # (A) 0.1 k/uL (0-0.2); Basophils % (A) 1 %; Eosinophils # (A) 0.1 k/uL (0-0.7); Eosinophils % (A) 1 %; HCT 37.5 % (34.0-46.0); HGB 12.3 gm/dL (11.4-16.0); Lymphocytes # (A) 1.3 k/uL (1.0-4.8); Lymphocytes % (A) 14 %; MCH 29.3 pg (25.0-35.0); MCHC 32.9 g/dL (31.0-37.0); Mean Platelet Volume 6.9; Monocytes # (A) 0.3 k/uL (0-1.0); Monocytes % (A) 3 %; Neutrophils # (A) 7.2 k/uL (1.3-7.7); Neutrophils % (A) 79 %; Platelet Count 222 k/uL (150-450); RBC 4.21 m/uL (3.80-5.40); RDW 13.6 % (11.5-15.5); WBC 9.1 k/uL (3.8-10.6)
[2023-08-07] MEDS: SODIUM CHLORIDE 0.9% 1,000 ML IV STA (13:01)
[2023-08-07 13:18] LABS: ALT 22 U/L (4-34); AST 42 U/L (14-36); African American GFR (CKD) >90 (>60 ml/min/1.73 sqM); Albumin 4.3 g/dL (3.5-5.0); Alkaline Phosphatase 106 U/L (38-126); Anion Gap 8 mmol/L; Blood Urea Nitrogen 12 mg/dL (7-17); Calcium 9.4 mg/dL (8.4-10.2); Carbon Dioxide 23 mmol/L (22-30); Chloride 101 mmol/L (98-107); Creatine Kinase 49 U/L (30-135); Glucose 99 mg/dL (74-99); Non-African American GFR(CKD) >90 (>60 ml/min/1.73 sqM); Sodium 132 mmol/L (137-145); Total Protein 7.1 g/dL (6.3-8.2)
[2023-08-07 13:21] LABS: INR 0.9 (<1.2); Partial Thromboplastin Time 24.2 sec (22.0-30.0); Prothrombin Time 9.8 sec (10.0-12.5)
[2023-08-07 13:24] LABS: Potassium 5.6 mmol/L (3.5-5.1)
--- NOTE | 2023-08-07 13:29 | XR ---
EXAMINATION TYPE: XR chest 2V DATE OF EXAM: 08/07/2023 COMPARISON: 06/01/2023 HISTORY: Shortness of breath TECHNIQUE: Frontal and lateral views of the chest are obtained. FINDINGS: Scattered senescent parenchymal changes noted. Hyperinflation compatible with COPD. No evidence for infiltrate. No evidence for atelectasis. Heart size is stable. Mediastinal structures are stable and grossly unremarkable. No evidence for hilar prominence. Degenerative changes dorsal spine. IMPRESSION: 1. No evidence for acute pulmonary disease.
--- NOTE | 2023-08-07 13:44 | CT ---
EXAMINATION TYPE: CT brain wo con DATE OF EXAM: 08/07/2023 COMPARISON: 06/01/2023 INDICATION: WEAKNESS DLP: 1091.8 mGycm, Automated exposure control for dose reduction was used. CONTRAST: None CT of the brain is performed utilizing 3 mm thick sections through the posterior fossa and 3 mm thick sections through the remaining calvarium. Study is performed within 24 hours of arrival to the hosp ital. No abnormal hyperdensity is present to suggest an acute intracranial hemorrhage. No mass lesion is evident. No acute infarcts are evident. Subacute infarct may be within the right frontal parietal junction rhea suring 2.1 cm. Example image 201 and image 37. Some mild hypodensity may be in the right watershed re gion. Right basal ganglion hypodensities present likely on the basis of subacute or old lacunar infar ct. Some mild ex vacuo effect is evident. Ventricles and sulci are otherwise appropriate for the patient age. Paranasal sinuses and mastoid air cells within the [id number] are clear. IMPRESSION: 1. Interval development of hypodensity within the right frontal parietal junction and right watersh ed region suggesting subacute to old infarcts. An old appearing right basal ganglion infarct appears to be present with some ex vacuo effect. Findings are new interval finding from 06/01/2023. Follow-up M RI can be performed as clinically indicated.
--- NOTE | 2023-08-07 13:52 | CT ---
EXAMINATION TYPE: CT angio head neck DATE OF EXAM: 08/07/2023 HISTORY: WEAKNESS COMPARISON: None CT DLP: 436 mGycm. Automated Exposure Control for Dose Reduction was Utilized. TECHNIQUE: CTA scan of the neck is performed with IV Contrast, patient injected with 65 mL of Isovue 370, axial images are obtained, coronal and sagittal reformatted images are reviewed. Three-D recons tructed images are created on an independent workstation and reviewed. Source images are reviewed. FINDINGS: Carotid/Vascular Structures: There is a 3 vessel arch. Common carotid arteries bifurcate into internal and external carotid arteries without significant marlin w limiting stenosis. Vascular calcifications at bilateral carotid bifurcations and common carotid art eries distally. Vertebral arteries are codominant. Internal carotid arteries and vertebral arteries are patent to the skull base. Cervical of [place]: Right vertebral artery appears to terminate in the PICA. Left vertebral artery te rminates in the basilar artery. Posterior cerebral vasculature is unremarkable. Internal carotid aleksandra cal bifurcate normally into A1 and M1 segments. A2 segments are normal. The anterior communicating artery is patent. The right posterior communicating artery is patent. The left posterior communicating artery is patent. IMPRESSION: 1. No flow-limiting stenosis bilateral carotid bifurcations. 2. Normal [place] of [place] NASCET criteria was used in interpretation of this exam?
[2023-08-07] MEDS ORDERED: NALOXONE 0.4 MG/ML 1 ML VIAL IV PRN (15:16)
[2023-08-07] MEDS: lisinopriL 10 MG TAB PO STA (15:18)
[2023-08-07] MEDS ORDERED: ALPRAZolam 0.25 MG TAB PO PRN (16:03)
[2023-08-07] MEDS: ASPIRIN 325 MG TAB PO STA (16:12)
--- NOTE | 2023-08-07 16:23 | P.HPIM ---
History of Present Illness H&P Date: 08/07/23 58-year-old female with PMH of history of cervical fusion surgery, hypothyroidism, anxiety and depression presents to the ED being sent by her PCP. Recently seen on 06/30 ED for strokelike symptoms involving the left side, CT brain showed hyperdensity involving the right MCA, CT head showed complete o cclusion of the proximal right ICA. She was transferred to [facility] and underwent thrombectomy with neurointerventionalist, started on aspirin, Lipitor and Brilinta discharged on 07/13. Her strokelike symptoms have mostly resolved since then. She reports heaviness in her chest associated with exertional shortness of breath and right arm numbness/weakness for the past 2 days. Went to the ED at [facility] yesterday, cardiac workup including blood work and EKG negative, discharged home from the ED. She went to go see her PCP today and was told to go to the ED for further evaluation and workup. In the ED, she underwent extensive evaluation. BP 195/102, HR 67, RR 17, T 90 8F, 98% on RA. CBC unremarkable. Coagulation panel showed PT 9.8. CMP sodium 132, potassium 5.6, AST 42. Troponin 0.016. EKG normal sinus rhythm. Chest x-ray negative. CT head interval development of hypodensity within the right frontoparietal junction and right watershed region suggesting subacute to old infarcts, old r ight basal ganglia infarct. CTA head and neck unremakabe. Patient is admitted for further workup and evaluation. General: non toxic, no distress, appears at stated age Derm: warm, dry Head: atraumatic, normocephalic, symmetric Eyes: EOMI, no lid lag, anicteric sclera Mouth: no lip lesion, mucus membranes moist Cardiovascular: S1 S2 reg. Lungs: Clear to auscultation bilaterally Ext: no gross muscle atrophy, no edema, no contractures Neuro: no focal neuro deficits except numbness of the R shoulder extending laterally to the 4th and 5th digit, CN II-XII intact Psych: Alert, oriented, appropriate affect Based on my assessment of this patient, this patient meets a high complexity level of care. Patient has an acute diagnosis of hypertensive urgency with RUE numbness/weakness concerning for TIA versus new CVA that poses a threat to life or bodily function. Hypertensive urgency: Status post Lisinopril 10 mg PO x 1. Add Amlodipine 10 mg PO x 1. Start Lisinopril 20 mg PO QD. Chest pressure: Trend Trop/EKG to rule out ACS. Obtain Echo. Telemetry monitoring. RUE weakness/numbness: ASA 325 mg PO x 1. Could be related to h/o cervical fusion. + ulnar involvement. Obtain MRI brain. A1c. Lipid panel. Neurochecks. PT/OT/ST. Retart Lipitor 40 mg PO QHS, Brilinta 90 mg PO BID. Hyperkalemia: Hemolyzed. Repeat tomorrow. History of CVA status post thrombectomy Anxiety disorder: Restart Prozac 10 mg PO QD. Xanax 0.25 mg PO QD PRN for anxiety. CODE STATUS: FULL CODE DVT Prophylaxis: Lovenox SQ GI Prophylaxis: Designated medical POA if patient is not able to make medical decisions for themselves: I have reviewed the following call center consultant notes: ED note. I have reviewed the results of the following tests: As above. I have ordered the following tests: As above. I have discussed the care of this patient with the following independent historian: at bedside. I have independently interpreted the following test below: EKG. CXR. I have discussed the management of this patient with the following physician: ED physician. Past Medical History Past Medical History: Hypertension, Thyroid Disorder History of Any Multi-Drug Resistant Organisms: None Reported Past Surgical History: Orthopedic Surgery Additional Past Surgical History / Comment(s): cervical fusion Past Psychological History: No Psychological Hx Reported Smoking Status: Never smoker Past Alcohol Use History: Occasional Past Drug Use History: None Reported - Past Family History Mother Brother(s) Family Medical History: Hypertension Medications and Allergies Home Medications Medication Instructions Recorded Confirmed Type Multivitamins, [place]ra [Multivitamin 1 tab PO DAILY@1200 06/20/19 08/07/23 History (formulary)] [place]-3 Fatty Acids/Fish Oil [Fish 1 cap PO DAILY 06/20/19 08/07/23 History Oil 1,000 mg Softgel] ALPRAZolam [Xanax] 0.125 mg PO DAILY PRN 08/07/23 08/07/23 History Acetaminophen Tab [Tylenol Tab] 1,000 mg PO Q6H PRN 08/07/23 08/07/23 History Aspirin EC [Ecotrin Low Dose] 81 mg PO DAILY@0700 08/07/23 08/07/23 History Atorvastatin [Lipitor] 40 mg PO HS 08/07/23 08/07/23 History Cephalexin [Keflex] 500 mg PO Q6H 08/07/23 08/07/23 History FLUoxetine HCL [PROzac] 10 mg PO DAILY 08/07/23 08/07/23 History High Potency Vitamin D3 5000iu 125 mcg PO DAILY@1200 08/07/23 08/07/23 History Levothyroxine Sodium [Synthroid] 44 mcg PO BOWLES@0630 08/07/23 08/07/23 History Levothyroxine Sodium [Synthroid] 88 mcg PO MOTUWETHFRSA@0630 08/07/23 08/07/23 History Magnesium Glycinate 350mg 350 mg PO BID-W/MEALS 08/07/23 08/07/23 History Ondansetron Odt [Zofran Odt] 4 mg PO Q12H PRN 08/07/23 08/07/23 History Ticagrelor [Brilinta] 90 mg PO BID-W/MEALS 08/07/23 08/07/23 History Allergies Allergy/AdvReac Type Severity Reaction Status Date / Time azithromycin [From Zithromax] AdvReac Nausea & Verified 08/07/23 13:48 Vomiting cyclobenzaprine AdvReac lethargic Verified 08/07/23 13:48 [From Flexeril] unknown diuretic AdvReac depleted Uncoded 08/07/23 13:48 electrolytes Physical Exam Vitals: Vital Signs Temp Pulse Resp BP Pulse Ox 08/07/23 16:01 98.1 F 63 16 183/99 100 08/07/23 15:07 83 18 207/105 100 08/07/23 14:49 98.0 F 73 16 192/114 98 08/07/23 14:30 70 17 195/100 98 08/07/23 14:10 98.0 F 65 17 196/98 99 08/07/23 13:01 67 17 195/102 98 08/07/23 11:52 97.7 F 87 18 178/95 98 Intake and Output 08/07/23 08/07/23 08/07/23 06:59 14:59 22:59 Other: Weight 72.121 kg Results CBC & Chem 7: 08/07/23 12:42 08/07/23 12:42 Labs: Abnormal Lab Results - Last 24 Hours (Table) 08/07/23 08/07/23 Range/Units 12:42 12:42 PT 9.8 L (10.0-12.5) sec Sodium 132 L (137-145) mmol/L Potassium 5.6 H (3.5-5.1) mmol/L AST 42 H (14-36) U/L
[2023-08-07] MEDS: TICAGRELOR 90 MG TAB PO SCH (16:53)
[2023-08-07] MEDS: amLODIPine 10 MG TAB PO STA (16:53)
[2023-08-07] MEDS: ATORVASTATIN 40 MG TAB PO SCH (21:37)
[2023-08-08] MEDS: ACETAMINOPHEN TAB 325 MG TAB PO STA (02:35)
[2023-08-08] MEDS: LEVOTHYROXINE 88 MCG TAB PO SCH (06:12)
[2023-08-08] MEDS: ASPIRIN 81 MG PO SCH (06:13)
[2023-08-08 07:59] LABS: Basophils % (A) 0 %; Eosinophils # (A) 0.1 k/uL (0-0.7); Eosinophils % (A) 1 %; HCT 37.3 % (34.0-46.0); HGB 12.2 gm/dL (11.4-16.0); Lymphocytes # (A) 1.1 k/uL (1.0-4.8); Lymphocytes % (A) 16 %; MCH 29.9 pg (25.0-35.0); MCHC 32.8 g/dL (31.0-37.0); MCV 91.3 fL (80.0-100.0); Mean Platelet Volume 6.9; Monocytes # (A) 0.3 k/uL (0-1.0); Monocytes % (A) 5 %; Neutrophils % (A) 76 %; Platelet Count 221 k/uL (150-450); RBC 4.08 m/uL (3.80-5.40); RDW 13.9 % (11.5-15.5); WBC 6.5 k/uL (3.8-10.6)
[2023-08-08 08:28] LABS: African American GFR (CKD) >90 (>60 ml/min/1.73 sqM); Anion Gap 7 mmol/L; Blood Urea Nitrogen 11 mg/dL (7-17); Calcium 9.3 mg/dL (8.4-10.2); Carbon Dioxide 25 mmol/L (22-30); Chloride 104 mmol/L (98-107); Glucose 103 mg/dL (74-99); Non-African American GFR(CKD) 87 (>60 ml/min/1.73 sqM); Potassium 4.4 mmol/L (3.5-5.1); Sodium 136 mmol/L (137-145)
[2023-08-08] MEDS ORDERED: lisinopriL 10 MG TAB PO SCH (09:00)
[2023-08-08] MEDS ORDERED: lisinopriL 20 MG TAB PO SCH ×2 (09:00)
[2023-08-08] MEDS: lisinopriL 5 MG TAB PO SCH (09:47)
[2023-08-08] MEDS: FLUoxetine HCL 10 MG CAP PO SCH (09:47)
[2023-08-08] MEDS: ENOXAPARIN 40 MG/0.4 ML SYRINGE SQ SCH (09:48)
--- NOTE | 2023-08-08 10:12 | CA ---
Transthoracic Echo Report Name: Bonnie Jhaveri Age: 58 Gender: F : 1965 Exam Date: 08/08/2023 07:49 Exam Location: [facility] Ht (in): 64 Wt (lb): 159 Ordering Physician: Tucker Harding MD Attending/Referring Phys: Smooth Plater Flori Montez RCS Procedure CPT: Indications: Chest Pain Cardiac Hx: Technical Quality: Fair Contrast 1: Total Dose (mL): Contrast 2: Total Dose (mL): MEASUREMENTS (Male / Female) Normal Values 2D ECHO LV Diastolic Diameter PLAX 4.6 cm 4.2 - 5.9 / 3.9 - 5.3 cm LV Systolic Diameter PLAX 2.9 cm IVS Diastolic Thickness 0.9 cm 0.6 - 1.0 / 0.6 - 0.9 cm LVPW Diastolic Thickness 1.0 cm 0.6 - 1.0 / 0.6 - 0.9 cm LV Relative Wall Thickness 0.4 RV Internal Dim ED PLAX 3.2 cm LVOT Diameter 2.1 cm LV Diastolic Volume MOD BP 89.4 cm??? 67 - 155 / 56 - 104 cm??? LV Systolic Volume MOD BP 39.6 cm??? 22 - 58 / 19 - 49 cm??? LV Ejection Fraction MOD BP 55.7 % >= 55 % LV Cardiac Index MOD BP 1750.0 cm???/min???m??? LV Diastolic Volume MOD 4C 84.6 cm??? LV Systolic Volume MOD 4C 34.5 cm??? LV Ejection Fraction MOD 4C 59.2 % LV Cardiac Index MOD 4C 1758.2 cm???/min???m??? LV Diastolic Length 4C 7.9 cm LV Systolic Length 4C 7.0 cm LV Diastolic Volume MOD 2C 94.4 cm??? LV Systolic Volume MOD 2C 44.0 cm??? LV Ejection Fraction MOD 2C 53.4 % LV Cardiac Index MOD 2C 1770.9 cm???/min???m??? LV Diastolic Length 2C 7.9 cm LV Systolic Length 2C 6.8 cm LA Volume 52.1 cm??? 18 - 58 / 22 - 52 cm??? LA Volume Index 28.6 cm???/m??? 16 - 28 cm???/m??? Ascending Aorta Diameter 3.5 cm DOPPLER AV Peak Velocity 167.5 cm/s AV Peak Gradient 11.2 mmHg AV Mean Velocity 117.6 cm/s AV Mean Gradient 6.1 mmHg AV Velocity Time Integral 38.8 cm LVOT Peak Velocity 116.2 cm/s LVOT Peak Gradient 5.4 mmHg LVOT Velocity Time Integral 23.9 cm LVOT Stroke Volume 83.6 cm??? LVOT Stroke Volume Index 47.1 ml/m??? LVOT Cardiac Index 2935.9 cm???/min???m??? AV Area Cont Eq vti 2.2 cm??? AV Area Cont Eq pk 2.4 cm??? MV Area PHT 3.2 cm??? Mitral E Point Velocity 66.4 cm/s Mitral A Point Velocity 91.6 cm/s Mitral E to A Ratio 0.7 MV Deceleration Time 240.7 ms PV Peak Velocity 93.0 cm/s PV Peak Gradient 3.5 mmHg FINDINGS Left Ventricle Left ventricular ejection fraction is estimated at 55-60 %. Mildly increased posterior wall thickness. Left ventricular cavity size normal. No obvious regional wall motion abnormalities. Right Ventricle Normal right ventricular size and function. Unable to assess right ventricular systolic function. Right Atrium Normal right atrial size. Left Atrium Normal left atrial size. Mildly mobile inter atrial septum. Mitral Valve Structurally normal mitral valve. No evidence for mitral valve prolapse. No mitral stenosis. Trace mitral regurgitation. Aortic Valve Trileaflet aortic valve. No aortic stenosis. No aortic regurgitation. Tricuspid Valve Structurally normal tricuspid valve. No tricuspid stenosis. Trace tricuspid regurgitation. Pulmonic Valve Structurally normal pulmonic valve. No pulmonic stenosis. Trace pulmonic regurgitation. Pericardium No pericardial effusion. Aorta Normal size aortic root and proximal ascending aorta. CONCLUSIONS Normal LV size and systolic function. Mild mitral and tricuspid regurgitation. No pericardial effusion. Previewed by: Dr. Lesa Paredes MD (Electronically Signed) Final Date: 08 August 2023 10:11
[2023-08-08] MEDS: LORazepam 2 MG/ML INJ IV PRN (10:14)
[2023-08-08 10:50] VITALS: RESP 16
--- NOTE | 2023-08-08 11:19 | P.CRDCN ---
History of Present Illness Consult date: 08/08/23 Consult reason: chest pain History of present illness: History of present illness: This is a 58-year-old female with past medical history of hyperlipidemia, hypothyroidism, history of CVA status post thrombectomy in June 2023 performed at [facility]. We have been asked to evaluate the patient for chest pain. 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 Patient was then transferred to [facility] where she states she underwent thrombectomy. Day before yesterday, patient developed chest pain and thought she should return to [facility] as she was just discharged on 07/13. She states she had chest pain in the middle of her chest along with a numbness in her right arm. She was evaluated and then discharged home. Patient then followed up with her PCP and was sent into the hospital here for further evaluation. She denies having any chest pain. The right arm numbness is gone but she has a dull ache in her right arm. She states the chest pain had lasted constantly for couple of days. She thought it was related to anxiety as she has history of panic attacks. Patient also states that she was taken off lisinopril 5 mg daily when she was in the hospital at [facility] for CVA. Patient presented with a blood pressure 195/102. Patient received a dose of Norvasc 10 mg x 1, lisinopril 10 mg x 1 and 1 L of IV fluids. Blood pressure is now 124/78. Patient is seen today in the emergency center waiting for bed on the cardiac stepdown unit. EKG normal sinus rhythm Chest x-ray: No acute process CTA of the head and neck revealed no flow-limiting stenosis bilateral carotid bifurcations. Normal [place] [facility] [place]. CT brain: Interval development of hypodensity within the right frontal parietal junction and right watershed region suggesting subacute to old infarcts. Old appearing right basal ganglion infarct appears to be present. Echocardiogram performed 08/07/2023 reveals EF of 55 to 60%. Mild mitral tricuspid regurgitation. No pericardial effusion. CBC normal. INR 0.9. Sodium 132, potassium 5.6, BUN 12 and creatinine 0.76. Troponin negative x 3. AST is 42 otherwise all liver function tests are within normal limits. Home cardiac medications: Aspirin 81 mg daily, atorvastatin 40 mg at bedtime, Brilinta 90 mg twice daily, patient is also on levothyroxine. Review Of Systems: At the time of my exam: CONSTITUTIONAL: Denies fever or chills. HEENT: Denies blurred vision, vision changes, or eye pain. Denies hemoptysis CARDIOVASCULAR: Denies chest pain. Denies orthopnea. Denies PND. Denies palpitations RESPIRATORY: Denies shortness of breath. GASTROINTESTINAL: Denies abdominal pain. Denies nausea or vomiting. HEMATOLOGIC: Denies bleeding disorders. GENITOURINARY: Denies any blood in urine. SKIN: Denies pruitis. Denies rash. Physical examination: Gen: This is a 58-year-old female in no acute distress. VS: reviewed blood pressure 124/78, heart rate 69, pulse ox 100% on room air. HEENT: Head is atraumatic, normocephalic. Pupils equal, round. Sclerae is anicteric. NECK: Supple. No JVD. LUNGS: Clear to auscultation. No wheezes or rhonchi. No intercostal retractions. HEART: Regular rate and rhythm. No murmur. ABDOMEN: Soft No tenderness. EXTREMITIES: No pedal edema. No calf tenderness. NEUROLOGICAL: Patient is awake, alert and oriented x3. Assessment: Chest pain Hypertensive urgency History of CVA status post thrombectomy Right internal carotid occlusion Plan: Resume patient's home cardiac medications Start patient back on lisinopril 5 mg daily Patient is cleared for discharge from cardiology and will follow-up with Dr. Alexander. Recommend an ischemic cardiac workup to be done due to complete occlusion of the R ICA. Thank you kindly for this consultation. Nurse practitioner note has been reviewed, I agree with documented findings and plan of care. Patient was seen and examined. Past Medical History Past Medical History: Hypertension, Thyroid Disorder History of Any Multi-Drug Resistant Organisms: None Reported Past Surgical History: Orthopedic Surgery Additional Past Surgical History / Comment(s): cervical fusion Past Psychological History: No Psychological Hx Reported Smoking Status: Never smoker Past Alcohol Use History: Occasional Past Drug Use History: None Reported - Past Family History Mother Brother(s) Family Medical History: Hypertension Medications and Allergies Home Medications Medication Instructions Recorded Confirmed Type Multivitamins, Thera [Multivitamin 1 tab PO DAILY@1200 06/20/19 08/07/23 History (formulary)] [place]-3 Fatty Acids/Fish Oil [Fish 1 cap PO DAILY 06/20/19 08/07/23 History Oil 1,000 mg Softgel] ALPRAZolam [Xanax] 0.125 mg PO DAILY PRN 08/07/23 08/07/23 History Acetaminophen Tab [Tylenol Tab] 1,000 mg PO Q6H PRN 08/07/23 08/07/23 History Aspirin EC [Ecotrin Low Dose] 81 mg PO DAILY@0700 08/07/23 08/07/23 History Atorvastatin [Lipitor] 40 mg PO HS 08/07/23 08/07/23 History Cephalexin [Keflex] 500 mg PO Q6H 08/07/23 08/07/23 History FLUoxetine HCL [PROzac] 10 mg PO DAILY 08/07/23 08/07/23 History High Potency Vitamin D3 5000iu 125 mcg PO DAILY@1200 08/07/23 08/07/23 History Levothyroxine Sodium [Synthroid] 44 mcg PO BOWLES@0630 08/07/23 08/07/23 History Levothyroxine Sodium [Synthroid] 88 mcg PO MOTUWETHFRSA@0630 08/07/23 08/07/23 History Magnesium Glycinate 350mg 350 mg PO BID-W/MEALS 08/07/23 08/07/23 History Ondansetron Odt [Zofran Odt] 4 mg PO Q12H PRN 08/07/23 08/07/23 History Ticagrelor [Brilinta] 90 mg PO BID-W/MEALS 08/07/23 08/07/23 History Allergies Allergy/AdvReac Type Severity Reaction Status Date / Time azithromycin [From Zithromax] AdvReac Nausea & Verified 08/07/23 13:48 Vomiting cyclobenzaprine AdvReac lethargic Verified 08/07/23 13:48 [From Flexeril] unknown diuretic AdvReac depleted Uncoded 08/07/23 13:48 electrolytes Physical Exam Vitals: Vital Signs Temp Pulse Resp BP Pulse Ox 08/08/23 06:40 69 124/78 100 08/08/23 05:00 64 18 98/71 97 08/08/23 04:00 90 20 112/79 93 L 04/12/24 03:00 63 15 125/83 95 08/08/23 02:38 69 18 125/83 98 08/08/23 02:10 70 16 127/85 97 08/08/23 00:37 73 18 98/67 98 08/07/23 21:33 75 18 109/67 98 08/07/23 18:08 98.0 F 71 17 149/93 98 08/07/23 17:18 98.0 F 65 17 167/90 98 08/07/23 16:30 64 17 156/92 98 08/07/23 16:01 98.1 F 63 16 183/99 100 08/07/23 15:07 83 18 207/105 100 08/07/23 14:49 98.0 F 73 16 192/114 98 08/07/23 14:30 70 17 195/100 98 08/07/23 14:10 98.0 F 65 17 196/98 99 08/07/23 13:01 67 17 195/102 98 08/07/23 11:52 97.7 F 87 18 178/95 98 Results 08/08/23 07:33 08/08/23 07:33 Cardiac Enzymes 08/07/23 08/07/23 08/07/23 Range/Units 12:42 12:42 17:44 AST 42 H (14-36) U/L Troponin I 0.016 <0.012 (0.000-0.034) ng/mL 08/07/23 Range/Units 21:09 AST (14-36) U/L Troponin I <0.012 (0.000-0.034) ng/mL Coagulation 08/07/23 Range/Units 12:42 PT 9.8 L (10.0-12.5) sec APTT 24.2 (22.0-30.0) sec CBC 08/07/23 Range/Units 12:42 WBC 9.1 (3.8-10.6) k/uL RBC 4.21 (3.80-5.40) m/uL Hgb 12.3 (11.4-16.0) gm/dL Hct 37.5 (34.0-46.0) % Plt Count 222 (150-450) k/uL Comprehensive Metabolic Panel 08/07/23 Range/Units 12:42 Sodium 132 L (137-145) mmol/L Potassium 5.6 H (3.5-5.1) mmol/L Chloride 101 (98-107) mmol/L Carbon Dioxide 23 (22-30) mmol/L BUN 12 (7-17) mg/dL Creatinine 0.67 (0.52-1.04) mg/dL Glucose 99 (74-99) mg/dL Calcium 9.4 (8.4-10.2) mg/dL AST 42 H (14-36) U/L ALT 22 (4-34) U/L Alkaline Phosphatase 106 (38-126) U/L Total Protein 7.1 (6.3-8.2) g/dL Albumin 4.3 (3.5-5.0) g/dL Current Medications Generic Name Dose Route Start Last Admin Trade Name Freq PRN Reason Stop Dose Admin Alprazolam 0.125 mg 08/07/23 16:03 Alprazolam 0.25 Mg Tab PO DAILY PRN Anxiety Aspirin 81 mg 08/08/23 07:00 08/08/23 06:13 Aspirin 81 Mg PO 81 mg DAILY@0700 NOA Administration Atorvastatin Calcium 40 mg 08/07/23 21:00 08/07/23 21:37 Atorvastatin 40 Mg Tab PO 40 mg HS NOA Administration Enoxaparin Sodium 40 mg 08/08/23 09:00 Enoxaparin 40 Mg/0.4 Ml Syringe SQ DAILY [facility] Fluoxetine HCl 10 mg 08/08/23 09:00 Fluoxetine Hcl 10 Mg Cap PO DAILY [facility] Levothyroxine Sodium 44 mcg 08/10/23 06:30 Levothyroxine 88 Mcg Tab PO BOWLES@0630 [facility] Levothyroxine Sodium 88 mcg 08/08/23 06:30 08/08/23 06:12 Levothyroxine 88 Mcg Tab PO 88 mcg MOTUWETHFRSA@0630 [facility] Administration Lorazepam 1 mg 08/07/23 16:20 Lorazepam 2 Mg/Ml Inj IV Q4HR PRN Anxiety Naloxone HCl 0.2 mg 08/07/23 15:16 Naloxone 0.4 Mg/Ml 1 Ml Vial IV Q2M PRN Opioid Reversal Ticagrelor 90 mg 08/07/23 17:30 08/07/23 16:53 Ticagrelor 90 Mg Tab PO 90 mg BID-W/MEALS NOA Administration 08/07/23 12:42 08/07/23 12:42
--- NOTE | 2023-08-08 12:46 | P.CNNES ---
History of Present Illness Consult date: 08/08/23 Requesting physician: Kathy Helm Reason for Consult: right sided paresthesia, hx cva with left sided paresthesia History of Present Illness: this is a 58-year-old woman who presented emergency department because of chest pain, right arm numbness. patient states that she had numbness about 2 days ago and she felt it's from right shoulder to the mid forearm and she felt that over over the right ulnar region of the hand. She does have ongoing chronic neck pain radiating bilateral shoulder region. She had history of ACDF over C5 C7 C8 in the past. She denies any weakness, visual disturbance, double vision, diff iculty swallowing or getting her words out. patient is on [id number] mg, Brilinta 90mg bid and Lipitor 40mg qhs. She denies any history of a-fib or flutter. She also has lower back pain. For her neck and lower back pain she follows-up with Orthopedic team who she stated wanted to perform pain injection in her neck. She had a recent history of stroke in 07/01/2023 and she presented to our faci lity because of left arm numbness and left-sided weakness and she also felt she had some symptoms over the right upper extremity. was presumed she had a stroke and she had CT angiography which showed complete occlusion of the proximal right ICA. She received IV with thrombolytic and then she was transferred to [facility] and had thrombectomy. patient stated that she had that surgery performed by Dr. Beckford and followed-up with him as outpatient and was told to follow- up within 9 month. she stated again with her stroke she had weakness mostly on the left side mostly in the upper but her symptoms has improved and also she felt that was noticed by therapy team. She is an ex-smoker. Some of the work-up consisted of: Glucose is 99 HbA1c: 4.8 cbc with diff is unremarkable. Ct head is reported as interval development of hypodenisity right frontal/parietal junction and right watershed region suggesting subacute to old infarct. An old appearing right basal ganglia region infarct appears to be present with some ex-vacuo effect. Findings are new interval from 06/01/2023. I personally reviewed CT and feel the finding on right hemisphere are not acute and seem more subacute to chronic (more chronic). CTA head and neck is reported as No flow-limiting stenosis bilateral carotid bi furcations. Normal [place]. 2D echo: Normal LV size and sytolic function. Mild mitral and tricuspid regurgitation. EKG is reported as sinus rhtyhm. Normal EKG. Review of Systems Review of system: The 12 point system was reviewed and apparent positive and negative per HPI. Past Medical History Past Medical History: Hypertension, Thyroid Disorder History of Any Multi-Drug Resistant Organisms: None Reported Past Surgical History: Orthopedic Surgery Additional Past Surgical History / Comment(s): cervical fusion Past Psychological History: No Psychological Hx Reported Smoking Status: Never smoker Past Alcohol Use History: Occasional Past Drug Use History: None Reported - Past Family History Mother Brother(s) Family Medical History: Hypertension Medications and Allergies Home Medications Medication Instructions Recorded Confirmed Type Multivitamins, Thera [Multivitamin 1 tab PO DAILY@1200 06/20/19 08/07/23 History (formulary)] [place]-3 Fatty Acids/Fish Oil [Fish 1 cap PO DAILY 06/20/19 08/07/23 History Oil 1,000 mg Softgel] ALPRAZolam [Xanax] 0.125 mg PO DAILY PRN 08/07/23 08/07/23 History Acetaminophen Tab [Tylenol Tab] 1,000 mg PO Q6H PRN 08/07/23 08/07/23 History Aspirin EC [Ecotrin Low Dose] 81 mg PO DAILY@0700 08/07/23 08/07/23 History Atorvastatin [Lipitor] 40 mg PO HS 08/07/23 08/07/23 History Cephalexin [Keflex] 500 mg PO Q6H 08/07/23 08/07/23 History FLUoxetine HCL [PROzac] 10 mg PO DAILY 08/07/23 08/07/23 History High Potency Vitamin D3 5000iu 125 mcg PO DAILY@1200 08/07/23 08/07/23 History Levothyroxine Sodium [Synthroid] 44 mcg PO BOWLES@0630 08/07/23 08/07/23 History Levothyroxine Sodium [Synthroid] 88 mcg PO MOTUWETHFRSA@0630 08/07/23 08/07/23 History Magnesium Glycinate 350mg 350 mg PO BID-W/MEALS 08/07/23 08/07/23 History Ondansetron Odt [Zofran Odt] 4 mg PO Q12H PRN 08/07/23 08/07/23 History Ticagrelor [Brilinta] 90 mg PO BID-W/MEALS 08/07/23 08/07/23 History Allergies Allergy/AdvReac Type Severity Reaction Status Date / Time azithromycin [From Zithromax] AdvReac Nausea & Verified 08/07/23 13:48 Vomiting cyclobenzaprine AdvReac lethargic Verified 08/07/23 13:48 [From Flexeril] unknown diuretic AdvReac depleted Uncoded 08/07/23 13:48 electrolytes Physical Examination - Vital Signs Vital Signs: Vital Signs Temp Pulse Pulse Resp BP BP Pulse Ox 08/08/23 11:20 98.0 F 70 16 134/86 100 08/08/23 10:09 97.8 F 69 16 143/82 98 08/08/23 09:49 80 130/90 08/08/23 06:40 69 124/78 100 08/08/23 05:00 64 18 98/71 97 08/08/23 04:00 90 20 112/79 93 L 08/08/23 03:00 63 15 125/83 95 08/08/23 02:38 69 18 125/83 98 08/08/23 02:10 70 16 127/85 97 08/08/23 00:37 73 18 98/67 98 08/07/23 21:33 75 18 109/67 98 08/07/23 18:08 98.0 F 71 17 149/93 98 08/07/23 17:18 98.0 F 65 17 167/90 98 08/07/23 16:30 64 17 156/92 98 08/07/23 16:01 98.1 F 63 16 183/99 100 08/07/23 15:07 83 18 207/105 100 08/07/23 14:49 98.0 F 73 16 192/114 98 08/07/23 14:30 70 17 195/100 98 08/07/23 14:10 98.0 F 65 17 196/98 99 08/07/23 13:01 67 17 195/102 98 Intake and Output 08/07/23 08/08/23 08/08/23 22:59 06:59 14:59 Other: # Voids 1 GENERAL: The patient is lying in bed and is not in acute distress. NEUROLOGICAL: Higher mental function: The patient is awake, alert, oriented to self, place and time. Patient is following commands. No aphasia and no neglect. Cranial nerves: The pupils are round, equal and reactive to light and accommodation. Visual muñiz are full to confrontation throughout. Extraocular movement is intact no nystagmus is noted. Facial sensation is normal to touch throughout. The facial strength is normal throughout. Hearing is normal bilaterally to hand rub. Tongue is midline and moved [id number] without any difficulty. No dysarthria is noted. Shoulder shrug is normal bilaterally. Motor: The strength is left forearm is 5-. Otherwise 5 over 5 throughout. Normal tone and bulk. Cerebellum: Normal finger to nose bilaterally. Sensation: Sensation is normal to touch throughout. Reflexes (right/left): 2+ throughout. Plantars are mute bilaterally. Results - Laboratory Findings CBC and BMP: 08/08/23 07:33 08/08/23 07:33 Abnormal Lab Findings: Abnormal Labs 08/07/23 08/07/23 08/08/23 12:42 12:42 07:33 PT 9.8 L Sodium 132 L 136 L Potassium 5.6 H Glucose 103 H AST 42 H Assessment and Plan Assessment: This is a 58-year-old woman who presents because of chest pain as well as some right upper extremity numbness about 2 days ago. she has ongoing chronic neck pain as well as lower back pain. Acute numbness over the right upper extremity, numbness right ulnar region with neck pain: Seems more cervical radiculopathy. Unlikely stroke. Recent stroke in 07/01/2023 with weakness and numbness over the left side and had right ICA occlusion post IV thromoblytic and s/p thrombolectomy (Joelle Javier). Ongoing chronic neck pain with history of ACDF over C5,7 and 8 Ongoing lower back pain Hypothyroidism Ex-smoker Plan: Patient is resumed her home dose of ASA 81mg daily and Brilinta 90mg bid. She is also resume home lipitor 40mg qhs. She had MRI Brain and Cervical spine and pending final read. I personally revie wed it and felt there is no acute/subacute stroke and felt there is moderate to severe stenosis over cervical region C4/C5. Pending lipid panel Orthopedic team is consulted. Recommend the patient to have EMG with NCS as outpatient of [facility] then lowers for suspicion of cervical and lumbar radiculopathy. Continue neuro checks. Cardiac monitoring. PT, OT and [employer] are consulted. Cardiology team is consulted. I Recommend an event monitor for 30 days. Will defer the rest of medical management to primary team and other specialist. Patient follows-up with Dr. Beckford (interventionalist) who performed her thrombolyectomy according to her. Regarding in addition a general neurologist as outpatient with 2-3 weeks. For DVT prophylaxis: On Lovenox. The plan is discussed with patient and primary team. Than you for the consultation Time with Patient: Greater than 30
--- NOTE | 2023-08-08 13:16 | MR ---
MRI CERVICAL SPINE: CLINICAL HISTORY: Right neuro deficit TECHNIQUE: Multiplanar, multisequence imaging of the cervical spine is performed without COMPARISON: CT 06/01/2023 FINDINGS: There is a scoliotic curvature of the spine. Motion artifact limits assessment of the spinal canal. T here is evidence of prior surgery suggestive of a ADCFC5-C7. Low-lying cerebellar tonsils. Right lob e of the thyroid is enlarged and question small subcentimeter lymph nodes. Fortunately, severe motion artifact limits the region. Assessment spinal cord is limited due to artifact and resolution. No sizable gross areas of abnormal signal. Craniocervical junction maintained At C2-C3 there is mild degenerative disc disease with no obvious canal stenosis, foraminal encroachme nt or disc herniation. At C3-C4 there is moderate degenerative disc disease with hypertrophic spurring and posterior spondyl osis. Bilateral uncovertebral joint hypertrophy contributes to moderate to severe bilateral foraminal encroachment. There is a posterior disc osteophyte complex resulting in mild central stenosis. At C4-C5 there is moderate degenerative disc disease with hypertrophic spurring and posterior spondyl osis. Bilateral uncovertebral joint hypertrophy contributes to moderate to severe bilateral foraminal encroachment. There is a posterior disc osteophyte complex resulting in mild central stenosis. At level C5-T1 limited due to artifact from the prior surgery and may show motion artifact. No obviou s disc herniation. At T1-T2 there is suggestion of a central and right paracentral disc protrusion or herniation. Very l imited by motion artifact. IMPRESSION: Exam limited by significant motion artifact. 1. Postsurgical changes stable from previous CT scan. 2. Degenerative disc disease with posterior spondylosis C3-4 and C4-C5 results in bilateral moderate to severe foraminal encroachment. At both levels disc osteophyte complex results in mild central sten osis. 3. Partially included in the [id number] is a right paracentral disc protrusion or small herniation T1-T2. 4. Limited assessment of the spinal canal\cord due to artifact. EXAMINATION TYPE: MR brain wo DATE OF EXAM: 08/08/2023 COMPARISON: CT scan of 08/07/2023 HISTORY: Neuro deficit, rt arm paresthesia TECHNIQUE: T1-weighted sagittal, T2, FLAIR, and diffusion axial, and T2 coronal coronal views of the brain are submitted. FINDINGS: There is abnormal diffusion restriction involving the centrum semiovale and surrounding area of reduc ed signal on diffusion suggestive of subacute to acute ischemia. Area of low signal involving the right parietal lobe and right basal ganglia surrounding by areas of diffusion restriction. Possibly related to area of previous hemorrhagic infarct versus neoplasm and p erilesional ischemia. Cortical diffusion restriction in the right temporal occipital lobe suggests parks bacute infarction.. Cerebellar tonsils low-lying in position. Sella turcica has a normal appearance. 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 Orbits are symmetric. There is a large areas of abnormal signal involving the right ce rebral hemisphere including the deep white matter and right parietal lobe. Right parietal temporal ju nction involved. Moderate generalized degenerative change. Remote lacunar infarcts involving the basal ganglia. Additi onal scattered areas of remote microvascular ischemia. Mild changes of chronic mastoiditis. Report called to the patient's nurse at 1:10 PM 08/08/2023. IMPRESSION: 1. Exam is positive for subacute ischemia right centrum semiovale/deep right parietal white matter an d right parietal temporal junction cortex. 2. Reduced signal with surrounding diffusion restriction right parietal lobe may be an area of prior remote hemorrhagic infarct with kathya-infarct ischemia favored over neoplasm. Short-term follow-up cou ld be obtained for confirmation.
--- NOTE | 2023-08-08 13:50 | P.CNOR ---
History of Present Illness - HPI Consult date: 08/08/23 Requesting physician: Bobby Stokes Consult reason: other (UE weakness, s/p cervical fusion) History of present illness: 58 yo female presents with c/o RUE weakness, numbness, tingling as well as dropping objects, issues with balance and neck pain. She recently in June was diagnosed with CVA and ICA occlusion and had stent placed. She is currently on thinners for this. She has been dealing with her arms and neck for the past two years, but over the past week it became much worse. She has a hx of C5-[address] Beard some years ago at [facility]. She states this went well and she had no issues after. She states that her sx now are starting to be like those were back before her neck surgery. She states no DUMONT, nausea, vision changes, f/c/sob/cp at this time. She states she saw PMR out pt and they wanted to do CISCO of the C spine, but could not due to her recent CVA and thinners. She denies any trauma or other issues at this time. Review of Systems 14 points review of systems completed and as stated in HPI, all other systems reviewed are negative. Past Medical History Past Medical History: Hypertension, Thyroid Disorder History of Any Multi-Drug Resistant Organisms: None Reported Past Surgical History: Orthopedic Surgery Additional Past Surgical History / Comment(s): cervical fusion Past Psychological History: No Psychological Hx Reported Smoking Status: Never smoker Past Alcohol Use History: Occasional Past Drug Use History: None Reported - Past Family History Mother Brother(s) Family Medical History: Hypertension Medications and Allergies Home Medications Medication Instructions Recorded Confirmed Type Multivitamins, Thera [Multivitamin 1 tab PO DAILY@1200 06/20/19 08/07/23 History (formulary)] [place]-3 Fatty Acids/Fish Oil [Fish 1 cap PO DAILY 06/20/19 08/07/23 History Oil 1,000 mg Softgel] ALPRAZolam [Xanax] 0.125 mg PO DAILY PRN 08/07/23 08/07/23 History Acetaminophen Tab [Tylenol Tab] 1,000 mg PO Q6H PRN 08/07/23 08/07/23 History Aspirin EC [Ecotrin Low Dose] 81 mg PO DAILY@0700 08/07/23 08/07/23 History Atorvastatin [Lipitor] 40 mg PO HS 08/07/23 08/07/23 History Cephalexin [Keflex] 500 mg PO Q6H 08/07/23 08/07/23 History FLUoxetine HCL [PROzac] 10 mg PO DAILY 08/07/23 08/07/23 History High Potency Vitamin D3 5000iu 125 mcg PO DAILY@1200 08/07/23 08/07/23 History Levothyroxine Sodium [Synthroid] 44 mcg PO BOWLES@0630 08/07/23 08/07/23 History Levothyroxine Sodium [Synthroid] 88 mcg PO MOTUWETHFRSA@0630 08/07/23 08/07/23 History Magnesium Glycinate 350mg 350 mg PO BID-W/MEALS 08/07/23 08/07/23 History Ondansetron Odt [Zofran Odt] 4 mg PO Q12H PRN 08/07/23 08/07/23 History Ticagrelor [Brilinta] 90 mg PO BID-W/MEALS 08/07/23 08/07/23 History Allergies Allergy/AdvReac Type Severity Reaction Status Date / Time azithromycin [From Zithromax] AdvReac Nausea & Verified 08/07/23 13:48 Vomiting cyclobenzaprine AdvReac lethargic Verified 08/07/23 13:48 [From Flexeril] unknown diuretic AdvReac depleted Uncoded 08/07/23 13:48 electrolytes Physical Examination Osteopathic Statement: *. No significant issues noted on an osteopathic structural exam other than those noted in the History and Physical/Consult. PHYSICAL EXAMINATION: Vitals: Stable General: Awake, alert, appropriate for age, in no acute distress. HEENT: No unusual neck masses around region of lateral neck triangle, thyroid, supraclavicular groove. Extremities: Skin warm and dry without no acute lesions, coloration, temperature, skin intact, no tenderness or erythema. Integument: Hairy patches: Absent Dorsal skin dimples: Absent Cafe au lait spots: Absent Surgical incisions: Anterior right side cervical well-healed Palpation: Please see Pain drawing on Intake sheet for further detail. (Tenderness = T, Nontender = NT, Swelling = S, Ecchymosis = E) Findings on Midline and paraspinal palpation and percussion: Cervical: Mild tenderness to palpation Thoracic: NT Lumbar: NT Sacral: NT Special findings: POSTURAL and MUSCULO-SKELETAL EVALUATION: Coronal Balance: Neutral Recumbent testing: Patient can lay flat on back Sagittal Balance: Neutral Shoulder Profile: Level Pelvic Girdle: Level Neck ROM: Restricted Lumbar ROM: Unrestricted in six directions Shoulder ROM: Symmetric in abduction, ER/IR Hip ROM: Symmetric in abduction, adduction, ER/IR Knee ROM: Symmetric and intact in Flexion / extension Hands: Normal appearing structure L and R Feet: Normal appearing structure L and R VASCULAR STATUS : Wrist Pulses: 2/4 bilateral radial and ulnar Pedal Pulses: 2/4 bilateral DP and PT Color: Normal Edema: None NEUROLOGIC EXAMINATION: Mental Status: Awake and alert, fully oriented, with normal attention, concentration and memory, and fluent, appropriate speech. Cranial Nerves: I: Olfactory not tested. II: Visual acuity normal, no visual field deficit noted with confrontation. III,IV: Normal pupillary reflexes & intact extraocular movements without nys tagmus. V,: Intact symmetrical facial sensation. VII: Intact symmetrical facial motor movement VIII: Hearing intact. IX,X: Intact gag, swallow, & normal voice. XI: Sternocleidomastoid, trapezius function intact. XII: Tongue midline with normal movements. Special Tests: L'hermitte's Sign: Absent Spurling'Sign: Positive Cubital percussion test: Absent Bilateral Aric-Tinel sign - Carpal region: Absent Bilateral Straight Leg Raising: Absent Bilateral Motor Exam (0-5/5, N/T) STRENGTH UPPER EXTREMITY 5/5 in all major muscle groups of the UE b/l 4 out of 5 strength in wrist extension bilaterally biceps bilaterally EPL bilaterally and computer systems security analyst strength on the left LOWER EXTREMITY 5/5 in all major muscle groups of the LE b/l 4-5 strength in plantar flexion dorsiflexion on the left REFLEXES Upper Extremity: RIGHT 3 /4 LEFT 3+/4 Lower Extremity: RIGHT 3+/4 LEFT 3+/4 Pathological Reflexes Dent's: RIGHT present LEFT present Babinski: RIGHT Absent LEFT Absent Clonus: RIGHT 10 beats LEFT sustained SENSORY Pain and LT sense Intact C5-T1 and L2-S1 Dermatomal deficit C3 4 C4 5 right Gait and Functional Evaluation: Ambulatory aids: None Unsteady gait Results MRI of the C-spine and brain is reviewed as well as a computed tomography scan of the neck. This demonstrates adjacent segment disease C3 4 C4 5 with severe stenosis C3 4 C4 5 secondary to disc herniation disc bulging disc has occasion spondylosis ligamental hypertrophy posteriorly as well as facet hypertrophy. They are beginning stages of myelomalacia noted at C4 5. Postsurgical changes are noted C5 through C7 with anterior cervical discectomy fusion plate and screws and cages construct. Overall alignment is fairly well maintained some flattened cervical lordosis at the C3 4 C4 5 level secondary to the collapse. No acute fractures or lesions otherwise noted. - Labs Labs: Abnormal Lab Results - Last 24 Hours (Table) 08/07/23 08/07/23 08/08/23 Range/Units 12:42 12:42 07:33 PT 9.8 L (10.0-12.5) sec Sodium 132 L 136 L (137-145) mmol/L Potassium 5.6 H (3.5-5.1) mmol/L Glucose 103 H (74-99) mg/dL AST 42 H (14-36) U/L H & H 08/07/23 08/08/23 Range/Units 12:42 07:33 Hgb 12.3 12.2 (11.4-16.0) gm/dL Hct 37.5 37.3 (34.0-46.0) % Coagulation 08/07/23 Range/Units 12:42 INR 0.9 (<1.2) Result Diagrams: 08/08/23 07:33 08/08/23 07:33 Assessment and Plan Assessment: 58-year-old female status post C5 through 7 ACDF with adjacent segment disease C3 4 C4 5 Severe stenosis C3 4 C4 5 C3 to C5 spondylosis Cervical myelopathy History CVA in June on blood thinners Left upper extremity weakness Right upper extremity weakness Hyperreflexia USP Plan: -Appreciate system consultant and team management. -Activity: Ambulate QID, OOB all meals, up and about, limit lifting bending twisting to less than 5 lbs. Use walker or cane if needed for stability. -Daily PT/OT, increase ambulation strength and balance. -Pain control: [Adequate at this time] -Meds: Recommend Decadron 4 mg every 4 hours to start now. Patient has history of panic attacks on steroids would recommend her continue her Xanax from home as well as her other antipsychotic medications. -Discuss case with neurology. At this time we both agree that the cervical spine is the issue. The patient has cervical myelopathy which is evident on her exam as well as the MRI. She has severe stenosis at 2 levels. I discussed with the patient different options for treatment including nonsurgical and surgical options. Given the patient's history of CVA in June and her blood thinner status she is at high risk for doing an urgent surgical intervention at this time. She is fairly functional as well as this time her neurologic status has not severely deteriorated although it is progressing. I discussed with her that she would likely have to wait for surgical intervention given her thinner status and we will have to wait to she could come off these blood thinners in order to have surgery. Should her neurologic progression be quicker than we may have to do surgery regardless. She does need anterior cervical discectomy and fusion C3 4 C4 5 due to the severe stenosis and for neural preservation. We discussed outpatient follow-up for surgical planning. She was on board with this as she would like to talk to her . We will continue to follow her. Should she deteriorated neurologically we can revisit surgical intervention but she would need to be cleared by all services involved and would have to come off blood thinners in order to do so. Time with Patient: Greater than 30
--- NOTE | 2023-08-08 15:05 | P.PN ---
Subjective Progress Note Date: 08/08/23 58-year-old female with PMH of history of cervical fusion surgery, hypothyroidism, anxiety and depression presents to the ED being sent by her PCP. 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 She was transferred to [facility] and underwent thrombectomy with neurointerventionalist, started on aspirin, Lipitor and Brilinta discharged on 07/13. Her strokelike symptoms have mostly resolved since then. She reports heaviness in her chest associated with exertional shortness of breath and right arm numbness/weakness for the past 2 days. Went to the ED at [place] yesterday, cardiac workup including blood work and EKG negative, discharged home from the ED. She went to go see her PCP today and was told to go to the ED for further evaluation and workup. In the ED, she underwent extensive evaluation. BP 195/102, HR 67, RR 17, T 90 8F, 98% on RA. CBC unremarkable. Coagulation panel showed PT 9.8. CMP sodium 132, potassium 5.6, AST 42. Troponin 0.016. EKG normal sinus rhythm. Chest x-ray negative. CT head interval development of hypodensity within the right frontoparietal junction and right watershed region suggesting subacute to old infarcts, old right basal ganglia infarct. CTA head and neck unremakabe. Patient is admitted for further workup and evaluation. 08/07 Patient was seen and examined. She was given Lisinopril 20 mg PO and Amlodipine 10 mg PO yesterday. Her BP this morning is 124/78. Cardiology consulted, Echo shows normal EF with mild MR/TR, recommends outpatient ischemic workup. Her chest pain has resolved. She continues to reports numbness of the RUE. Discussed with Dr. Stokes, MRI brain and C-spine reviewed, chronic changes seen on MRI brain with some degree of cervical spinal stenosis seen on MRI C- spine. Orthopedic surgery consulted, recommends Decadron. CBC unremarkable. BMP Na 136, glu 103. A1c 4.8. Trop < 0.012 x 2. General: non toxic, no distress, appears at stated age Derm: warm, dry Head: atraumatic, normocephalic, symmetric Eyes: EOMI, no lid lag, anicteric sclera Mouth: no lip lesion, mucus membranes moist Cardiovascular: S1 S2 reg. Lungs: Clear to auscultation bilaterally Ext: no gross muscle atrophy, no edema, no contractures Neuro: no focal neuro deficits except numbness of the R shoulder extending late rally to the 4th and 5th digit, CN II-XII intact Psych: Alert, oriented, appropriate affect Based on my assessment of this patient, this patient meets a high complexity level of care. Patient has an acute diagnosis of hypertensive urgency with RUE numbness/weakness concerning for TIA versus new CVA that poses a threat to life or bodily function. Hypertensive urgency: Lisinopril 5 mg PO QD. Would benefit from workup of hypertension in the outpatient setting given the fluctuations. Chest pressure: ACS ruled out. Echo as above. Cardiology recommends outpatient cardiac workup. Cervical stenosis: Decadron 4 mg IV Q4H started by Orthopedic surgery. Advised to wait 6-9 months post CVA for any elective procedures. History of CVA status post thrombectomy Anxiety disorder: Restart Prozac 10 mg PO QD. Xanax 0.25 mg PO QD PRN for anxiety. CODE STATUS: FULL CODE DVT Prophylaxis: Lovenox SQ GI Prophylaxis: Designated medical POA if patient is not able to make medical decisions for themselves: I have reviewed the following therapeutic consultant notes: Cardiology. I have reviewed the results of the following tests: CBC, BMP, Trop x 2, Echo, A1c. I have ordered the following tests: I have discussed the care of this patient with the following independent historian: I have independently interpreted the following test below: MRI brain and C-spine I have discussed the management of this patient with the following physician: Dr. Stokes Objective - Vital Signs Vital signs: Vital Signs Temp 98.0 F 08/08/23 11:20 Pulse 70 08/08/23 11:21 Resp 16 08/08/23 14:18 BP 134/86 08/08/23 11:20 Pulse Ox 100 08/08/23 11:20 FiO2 Intake & Output 08/07/23 08/08/23 08/08/23 18:59 06:59 18:59 Intake Total 180 Balance 180 Weight 72.121 kg 72.121 kg Intake: Oral 180 Other: Voiding Method Toilet # Voids 1 - Labs CBC & Chem 7: 08/08/23 07:33 08/08/23 07:33 Labs: Abnormal Lab Results - Last 24 Hours (Table) 08/08/23 Range/Units 07:33 Sodium 136 L (137-145) mmol/L Glucose 103 H (74-99) mg/dL
[2023-08-08 16:00] LABS: Chol/HDL Ratio 1.81 Ratio; LDL Cholesterol,Calculated 33.9 mg/dL (0.0-131.0)
[2023-08-08] MEDS ORDERED: DEXAMETHASONE SOD PHOSPHATE 4 MG/ML 1 ML VIAL IVP PRN (16:00)
[2023-08-08 16:38] LABS: Glucose,Whole Blood 110 mg/dL (70-110)
[2023-08-08] MEDS: DEXAMETHASONE SOD PHOSPHATE 4 MG/ML 1 ML VIAL IVP SCH (16:44)
[2023-08-08 20:30] LABS: Glucose,Whole Blood 148 mg/dL (70-110)
[2023-08-08 21:16] VITALS: TEMP 98.2
[2023-08-09 05:59] LABS: Glucose,Whole Blood 140 mg/dL (70-110)
[2023-08-09] MEDS ORDERED: CEPHALEXIN 500 MG CAP PO SCH (08:30)
[2023-08-09 09:26] VITALS: BP 130/83; PULSE 89
--- NOTE | 2023-08-09 09:51 | P.PN ---
Subjective Progress Note Date: 08/09/23 Principal diagnosis: Bilateral upper extremity weakness h/o cervical fusion Patient seen and examined with warning. Patient is resting comfortably in bed. Patient continues to have complaint of cervical pain that radiates into the bilateral upper extremities. Decadron has been started, patient states she does find minimal relief, although she is not sure if it is just her mind hoping for a miracle. Overall patient feels that her symptoms are fairly similar to what they were at admission, not anything worse. Patient states she has been ambulatory to restroom without difficulty. Objective - Vital Signs Vital signs: Vital Signs Temp 98.2 F 08/08/23 20:55 Pulse 77 08/09/23 04:47 Resp 16 08/09/23 04:47 BP 116/77 08/09/23 04:47 Pulse Ox 96 08/09/23 04:47 FiO2 Intake & Output 08/08/23 08/09/23 08/09/23 18:59 06:59 18:59 Intake Total 580 Balance 580 Weight 72.121 kg Intake: Oral 580 Other: Voiding Method Toilet Toilet # Voids 1 2 - Exam Physical Examination General: The patient is awake and alert, in no acute distress Skin: Skin is warm and dry with no obvious rashes or lesions. Eye: Pupils are equal, round and reactive to light, extra-ocular movements are intact; there is normal conjunctiva bilaterally. Neck: The neck is supple, there is no tenderness and ROM intact. Cardiovascular: There is a regular rate and rhythm. No murmur, rub or gallop is appreciated. Respiratory: Lungs are clear to auscultation, respirations are non-labored, breath sounds are equal. Gastrointestinal: Soft, non-distended, non-tender abdomen. Back: There is no tenderness to palpation in the midline, paralumbar, parathoracic or buttocks region. There is no obvious deformity . Musculoskeletal: ROM limited secondary to pain and stiffness from surgical procedure. Muscle strength in all major muscle groups of bilateral upper extremities 4/5, 4/5 bilateral lower extremities. Neurological: CN 2-12 intact. There are no obvious motor or sensory deficits. Movement and coordination equal and intact. Sensory exam to light touch intact C5-T1 and intact from L2-S1. Reflexes 3+/4 in bilateral upper and lower extremities. Positive bilateral Hoffmans, Positive 8 beat clonus of RLE, Spurling'Sign: Positive Psychiatric: Cooperative, appropriate mood & affect, normal judgment. - Labs CBC & Chem 7: 08/08/23 07:33 08/08/23 07:33 Labs: Abnormal Lab Results - Last 24 Hours (Table) 08/08/23 08/08/23 08/09/23 Range/Units 07:33 20:29 05:58 Sodium 136 L (137-145) mmol/L Glucose 103 H (74-99) mg/dL POC Glucose (mg/dL) 148 H 140 H (70-110) mg/dL HDL Cholesterol 71.90 H (40.00-60.00) mg/dL Assessment and Plan Assessment: h/o C5-C7 ACDF with adjacent segment disease C3-C4, C4-C5 Severe stenosis C3-C4, C4-C5 C3-C5 spondylosis Cervical myelopathy History CVA in June on blood thinners Bilateral upper extremity weakness Hyperreflexia Multiple Complex Comorbidities Plan: -Appreciate investigations consultant and team management. -Continue with IV decadron, Recommend high dose Prednisone x7 days with no taper at discharge. -Activity: Ambulate QID, OOB all meals, up and about, limit lifting bending twisting to less than 5 lbs. Limit overhead activity as pushing and pulling. Use walker or cane if needed for stability. -Daily PT/OT, increase ambulation strength and balance. -Pain control: Adequate at this time -Meds: reviewed -GI ppx: per medicine -DVT PPX: Brilinta and Lovenox -Dispo: Patient is cleared from Orthopedic standpoint for discharge. Dr. Zepeda discussed outpatient follow-up for surgical planning. Patient agrees. *Should she deteriorated neurologically we can revisit surgical intervention but she would need to be cleared by all services involved and would have to come off blood thinners in order to do so. I reviewed and discussed this case with my attending Dr. Zepeda, whom has reviewed this chart and films and is in agreement with assessment and plan of care as outlined above. I have personally seen and examined the patient, performed the documentation and the assessment and plan as written. Number of minutes spent on the visit: 25m.
--- NOTE | 2023-08-09 10:52 | P.DS ---
Providers Date of admission: 08/07/23 15:16 Expected date of discharge: 08/09/23 Attending physician: Tucker Harding MD Consults: 08/07/23 15:16 Consult Physician Urgent Consulting Provider: Bobby Stokes Consult Reason/Comments: right sided paresthesia, hx cva with left paresthesia Do you want consulting provider notified?: Yes 08/07/23 16:04 Consult Physician Routine Consulting Provider: Jonathan Abdalla Consult Reason/Comments: chest pain Do you want consulting provider notified?: Yes 08/08/23 11:30 Consult Physician Stat Consulting Provider: Cristopher Zepeda Consult Reason/Comments: RUE paresthesia h/o cervical fusion Do you want consulting provider notified?: Yes Primary care physician: Audie Farris [facility] Course: 58-year-old female with PMH of history of cervical fusion surgery, hypothyroidism, anxiety and depression presents to the ED being sent by her PCP. 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 She was transferred to [facility] and underwent thrombectomy with neurointerventionalist, started on aspirin, Lipitor and Brilinta discharged on 07/13. Her strokelike symptoms have mostly resolved since then. She reports heaviness in her chest associated with exertional shortness of breath and right arm numbness/weakness for the past 2 days. Went to the ED at [place] yesterday, cardiac workup including blood work and EKG negative, discharged home from the ED. She went to go see her PCP today and was told to go to the ED for further evaluation and workup. In the ED, she underwent extensive evaluation. BP 195/102, HR 67, RR 17, T 90 8F, 98% on RA. CBC unremarkable. Coagulation panel showed PT 9.8. CMP sodium 132, potassium 5.6, AST 42. Troponin 0.016. EKG normal sinus rhythm. Chest x-ray negative. CT head interval development of hypodensity within the right frontoparietal junction and right watershed region suggesting subacute to old infarcts, old right basal ganglia infarct. CTA head and neck unremakabe. Patient is admitted for further workup and evaluation. Troponins trended and ACS was ruled out. Cardiology consulted, Echo shows normal EF with mild MR/TR, Cardiology recommended restarting low dose Lisinopril and outpatient ischemic workup. MRI brain and C-spine done which showed C3-5 moderate to severe foraminal encroachment, mild central stenosis, subacute ischemia right centrum semiovale/deep right parietal white matter and right parital temporal junction cortex. Neurology recommended outpatient Neurology followup, 30 day event monitor, continue ASA, Lipitor, Brilinta. Orthopedic Sx consulted for C-spine findings, started on Deadron. Unfortunately due to her recent CVA, strongly recommend against any elective surgical procedures for atleast 9 months. She is advised of warning symptoms of spinal stenosis and when to seek medical attention. 08/07 Patient was seen and examined. BP 116/77. Hopeful plans for discharge home today on Medrol Dose pack. Continue Lisinopril 5 mg PO QD. Follow up with Cardiology within 2 weeks for ischemic workup and results of event monitor. Follow up with Dr. Zepeda for further workup and management of cervical spine stenosis. General: non toxic, no distress, appears at stated age Derm: warm, dry Head: atraumatic, normocephalic, symmetric Eyes: EOMI, no lid lag, anicteric sclera Mouth: no lip lesion, mucus membranes moist Cardiovascular: S1 S2 reg. Lungs: Clear to auscultation bilaterally Ext: no gross muscle atrophy, no edema, no contractures Neuro: no focal neuro deficits except numbness of the R shoulder extending laterally to the 4th and 5th digit, CN II-XII intact Psych: Alert, oriented, appropriate affect Discharge Diagnosis: Hypertensive urgency Chest pressure Cervical spinal stenosis History of CVA status post thrombectomy Anxiety disorder This complex discharge took 35 minutes to complete. Patient Condition at Discharge: Stable Plan - Discharge Summary Discharge Rx Participant: No New Discharge Prescriptions: New methylPREDNISolone Dose Pack [Medrol Dose Pack] 4 mg PO DIRECTED #1 packet lisinopriL [Zestril] 5 mg PO DAILY #30 tab Continue Multivitamins, Thera [Multivitamin (formulary)] 1 tab PO DAILY@1200 [place]-3 Fatty Acids/Fish Oil [Fish Oil 1,000 mg Softgel] 1 cap PO DAILY Cephalexin [Keflex] 500 mg PO Q6H Magnesium Glycinate 350mg 350 mg PO BID-W/MEALS Aspirin EC [Ecotrin Low Dose] 81 mg PO DAILY@0700 Levothyroxine Sodium [Synthroid] 88 mcg PO MOTUWETHFRSA@0630 ALPRAZolam [Xanax] 0.125 mg PO DAILY PRN PRN Reason: Anxiety Atorvastatin [Lipitor] 40 mg PO HS Acetaminophen Tab [Tylenol] 1,000 mg PO Q6H PRN PRN Reason: Headache Ticagrelor [Brilinta] 90 mg PO BID-W/MEALS FLUoxetine HCL [PROzac] 10 mg PO DAILY Levothyroxine Sodium [Synthroid] 44 mcg PO BOWLES@0630 Ondansetron Odt [Zofran ODT] 4 mg PO Q12H PRN PRN Reason: Nausea And Vomiting High Potency Vitamin D3 5000iu 125 mcg PO DAILY@1200 Discharge Medication List Multivitamins, Thera [Multivitamin (formulary)] 1 tab PO DAILY@1200 06/20/19 [History] [place]-3 Fatty Acids/Fish Oil [Fish Oil 1,000 mg Softgel] 1 cap PO DAILY 06/20/19 [History] ALPRAZolam [Xanax] 0.125 mg PO DAILY PRN 08/07/23 [History] Acetaminophen Tab [Tylenol] 1,000 mg PO Q6H PRN 08/07/23 [History] Aspirin EC [Ecotrin Low Dose] 81 mg PO DAILY@0700 08/07/23 [History] Atorvastatin [Lipitor] 40 mg PO HS 08/07/23 [History] Cephalexin [Keflex] 500 mg PO Q6H 08/07/23 [History] FLUoxetine HCL [PROzac] 10 mg PO DAILY 08/07/23 [History] High Potency Vitamin D3 5000iu 125 mcg PO DAILY@1200 08/07/23 [History] Levothyroxine Sodium [Synthroid] 44 mcg PO BOWLES@0630 08/07/23 [History] Levothyroxine Sodium [Synthroid] 88 mcg PO MOTUWETHFRSA@0630 08/07/23 [History] Magnesium Glycinate 350mg 350 mg PO BID-W/MEALS 08/07/23 [History] Ondansetron Odt [Zofran ODT] 4 mg PO Q12H PRN 08/07/23 [History] Ticagrelor [Brilinta] 90 mg PO BID-W/MEALS 08/07/23 [History] lisinopriL [Zestril] 5 mg PO DAILY #30 tab 08/09/23 [Rx] methylPREDNISolone Dose Pack [Medrol Dose Pack] 4 mg PO DIRECTED #1 packet 08/09/23 [Rx] Follow up Appointment(s)/Referral(s): Gabe Alexander MD [STAFF PHYSICIAN] - 2 Weeks Paola Nicolas PAC [Family Provider] - 1-2 days Cristopher Zepeda DO [Doctor of Osteopathic Medicine] - 1 Week Patient Instructions/Handouts: Cervical Spinal Stenosis (DC) Activity/Diet/Wound Care/Special Instructions: Low salt diet Follow up with your Neurologist within 1 week of discharge. Follow up with Cardiology within 2 week of discharge. Cardiology can review the results of your event monitor. Discharge Disposition: HOME SELF-CARE
[2023-08-10] MEDS ORDERED: LEVOTHYROXINE 88 MCG TAB PO SCH (06:30)
== END 2023-08-09 11:51 | disposition home or self-care (01) | DRG 552 ==
LOC: EC 11:50 → 3SCARD 15:16
PROVIDERS: ADMIT Family Medicine; ATTEND Family Medicine
DX: M48.02 Spinal stenosis, cervical region (principal); M47.12 Other spondylosis with myelopathy, cervical region; M47.22 Other spondylosis with radiculopathy, cervical region; I16.0 Hypertensive urgency; I10 Essential (primary) hypertension; I07.1 Rheumatic tricuspid insufficiency; G89.29 Other chronic pain; F41.9 Anxiety disorder, unspecified; E87.5 Hyperkalemia; E78.5 Hyperlipidemia, unspecified; I65.21 Occlusion and stenosis of right carotid artery; E03.9 Hypothyroidism, unspecified; Z79.02 Long term (current) use of antithrombotics/antiplatelets; Z79.82 Long term (current) use of aspirin; Z79.890 Hormone replacement therapy; Z79.899 Other long term (current) drug therapy; Z86.73 Personal history of transient ischemic attack (TIA), and cerebral infarction without residual deficits; Z98.1 Arthrodesis status
CPT/HCPCS: 36415; 70450; 70496; 70498; 70551; 71046; 72141; 80048; 80053; 80061; 82550; 83036; 84484; 85025; 85610; 85730; 93005; 93306; 96361; 96372; 96374; 99285

== ENCOUNTER 2023-08-21 15:23 | Emergency (ER) | payer OTHER ==
--- NOTE | 2023-08-21 16:09 | ED ---
Allergic Reaction HPI - General Chief complaint: Allergic Reaction Stated complaint: Allergic reaction Time Seen by Provider: 08/21/23 15:48 Source: patient, RN notes reviewed, old records reviewed Mode of arrival: ambulatory Limitations: no limitations - History of Present Illness Initial Comments: This is a 4-year-old female to the ER for evaluation of allergic reaction significant allergic reaction prior to arrival hives reaction urticaria arms ant erior chest. Patient thought like she was going to feel like her throat was closing but has no significant shortness of breath here in the ER and that symptom has gone away. He does admit that she was anxious and may have been dreaming the fact that her throat was closing MD Complaint: allergic reaction, hives -: hour(s) Exposure: unknown Symptoms: rash, difficulty swallowing Severity: mild Treatment Prior to Arrival: none Previous Allergy History: none - Related Data Home Medications Medication Instructions Recorded Confirmed Multivitamins, Thera [Multivitamin 1 tab PO DAILY@1200 06/20/19 08/07/23 (formulary)] [place]-3 Fatty Acids/Fish Oil [Fish 1 cap PO DAILY 06/20/19 08/07/23 Oil 1,000 mg Softgel] ALPRAZolam [Xanax] 0.125 mg PO DAILY PRN 08/07/23 08/07/23 Acetaminophen Tab [Tylenol] 1,000 mg PO Q6H PRN 08/07/23 08/07/23 Aspirin EC [Ecotrin Low Dose] 81 mg PO DAILY@0700 08/07/23 08/07/23 Atorvastatin [Lipitor] 40 mg PO HS 08/07/23 08/07/23 Cephalexin [Keflex] 500 mg PO Q6H 08/07/23 08/07/23 FLUoxetine HCL [PROzac] 10 mg PO DAILY 08/07/23 08/07/23 High Potency Vitamin D3 5000iu 125 mcg PO DAILY@1200 08/07/23 08/07/23 Levothyroxine Sodium [Synthroid] 44 mcg PO BOWLES@62908/07/23 08/07/23 Levothyroxine Sodium [Synthroid] 88 mcg PO MOTUWETHFRSA@0630 08/07/23 08/07/23 Magnesium Glycinate 350mg 350 mg PO BID-W/MEALS 08/07/23 08/07/23 Ondansetron Odt [Zofran ODT] 4 mg PO Q12H PRN 08/07/23 08/07/23 Ticagrelor [Brilinta] 90 mg PO BID-W/MEALS 08/07/23 08/07/23 Previous Rx's Medication Instructions Recorded lisinopriL [Zestril] 5 mg PO DAILY #30 tab 08/09/23 methylPREDNISolone Dose Pack 4 mg PO DIRECTED #1 packet 08/09/23 [Medrol Dose Pack] hydrOXYzine HCL [Atarax] 25 mg PO TID PRN #15 tab 08/21/23 predniSONE 50 mg PO DAILY #5 tab 08/21/23 Allergies Allergy/AdvReac Type Severity Reaction Status Date / Time azithromycin [From Zithromax] AdvReac Nausea & Verified 08/21/23 15:41 Vomiting cyclobenzaprine AdvReac lethargic Verified 08/21/23 15:41 [From Flexeril] unknown diuretic AdvReac depleted Uncoded 08/21/23 15:41 electrolytes Review of Systems ROS Statement: Those systems with pertinent positive or pertinent negative responses have been documented in the HPI. ROS Other: All systems not noted in ROS Statement are negative. Past Medical History Past Medical History: Hypertension, Thyroid Disorder History of Any Multi-Drug Resistant Organisms: None Reported Past Surgical History: Orthopedic Surgery Additional Past Surgical History / Comment(s): cervical fusion Past Anesthesia/Blood Transfusion Reactions: No Reported Reaction Past Psychological History: No Psychological Hx Reported Smoking Status: Never smoker Past Alcohol Use History: Occasional Past Drug Use History: None Reported - Past Family History Mother Brother(s) History Unknown: Yes Family Medical History: Hypertension General Exam Limitations: no limitations General appearance: alert, in no apparent distress Head exam: Present: atraumatic, normocephalic, normal inspection Eye exam: Present: normal appearance, PERRL, EOMI. Absent: scleral icterus, conjunctival injection, periorbital swelling ENT exam: Present: normal exam, mucous membranes moist Neck exam: Present: normal inspection. Absent: tenderness, meningismus, lymphadenopathy Respiratory exam: Present: normal lung sounds bilaterally. Absent: respiratory distress, wheezes, rales, rhonchi, stridor Cardiovascular Exam: Present: regular rate, normal rhythm, normal heart sounds. Absent: systolic murmur, diastolic murmur, rubs, gallop, clicks GI/Abdominal exam: Present: soft, normal bowel sounds. Absent: distended, tenderness, guarding, rebound, rigid Extremities exam: Present: normal inspection, full ROM, normal capillary refill. Absent: tenderness, pedal edema, joint swelling, calf tenderness Back exam: Present: normal inspection Neurological exam: Present: alert, oriented X3, CN II-XII intact Psychiatric exam: Present: normal affect, normal mood Skin exam: Present: warm, dry, intact, normal color. Absent: rash Course Vital Signs 08/21/23 08/21/23 08/21/23 15:37 15:40 16:06 Temperature 97.8 F Pulse Rate 55 L 86 Respiratory 16 18 20 Rate Blood Pressure 66/46 126/86 O2 Sat by Pulse 100 98 Oximetry 08/21/23 08/21/23 08/21/23 16:40 17:00 17:49 Temperature Pulse Rate 76 77 68 Respiratory 16 20 20 Rate Blood Pressure 98/66 128/75 150/80 O2 Sat by Pulse 98 98 98 Oximetry - Reevaluation(s) Reevaluation #1: 08/21/23 17:06 Medical record is reviewed Reevaluation #2: 08/21/23 17:06 Patient symptoms are unchanged Reevaluation #3: 08/21/23 17:06 Patient informed of results and questions answered Reevaluation #4: Was pt. sent in by a medical professional or institution (, PA, MEDICAL OFFICE ADMINISTRATOR, urgent care, hospital, or snf...) When possible be specific @ -no Did you speak to anyone other than the patient for history (EMS, parent, family, police, friend...)? What history was obtained from this source @ -no Did you review nursing and triage notes (agree or disagree)? Why? @ -agree Are old charts reviewed (outside hosp., previous admission, EMS record, old EKG, old radiological studies, urgent care reports/EKG's, snf records)? Report findings @ -yes Differential Diagnosis (chest pain, altered mental status, abdominal pain women, abdominal pain men, vaginal bleeding, weakness, fever, dyspnea, syncope, headache, dizziness, GI bleed, back pain, seizure, CVA, palpatations, mental health, musculoskeletal)? @ -prior EKG interpreted by me (3pts min.). @ -yes X-rays interpreted by me (1pt min.). @ -no CT interpreted by me (1pt min.). @ -no U/S interpreted by me (1pt. min.). @ -no What testing was considered but not performed or refused? (CT, X-rays, U/S, lab s)? Why? @ -none What meds were considered but not given or refused? Why? @ -none Did you discuss the management of the patient with other professionals (professionals i.e. Dr., PA, MEDICAL OFFICE ADMINISTRATOR, lab, RT, psych nurse, renal social worker, bed maker, teacher, prison officer, foster care case manager)? Give summary @ -no Was smoking cessation discussed for >3mins.? @ -no Was critical care preformed (if so, how long)? @ -no Were there social determinants of health that impacted care today? How? (Homelessness, low income, unemployed, alcoholism, drug addiction, transportation, low edu. Level, literacy, decrease access to med. care, correction, rehab)? @ -none Was there de-escalation of care discussed even if they declined (Discuss DNR or withdrawal of care, Hospice)? DNR status @ -no What co-morbidities impacted this encounter? (DM, HTN, Smoking, COPD, CAD, Cancer, CVA, ARF, Chemo, Hep., AIDS, mental health diagnosis, sleep apnea, morbid obesity)? @ -none Was patient admitted / discharged? Hospital course, mention meds given and route, prescriptions, significant lab abnormalities, going to OR and other pertinent info. @ - 58 female to the ER for evaluation today. Patient presents with allergic reaction feeling better here in the ER with no distress no wheezing no stridor patient can be discharged home Discharge Undiagnosed new problem with uncertain prognosis? @ -no Drug Therapy requiring intensive monitoring for toxicity (Heparin, Nitro, Insulin, Cardizem)? @ -no Were any procedures done? @ -no Diagnosis/symptom? @ -Allergic reaction anaphylaxis Acute, or Chronic, or Acute on Chronic? @ -Acute Uncomplicated (without systemic symptoms) or Complicated (systemic symptoms)? @ -Complicated Side effects of treatment? @ -no Exacerbation, Progression, or Severe Exacerbation? @ -exacerbation Poses a threat to life or bodily function? How? (Chest pain, [place], [place], pneumonia, PE, COPD, DKA, ARF, appy, cholecystitis, CVA, Diverticulitis, Homicidal, Suicidal, threat to staff... and all critical care pts) @ -yes with significant allergic reaction Medical Decision Making - Medical Decision Making 58 female to the ER for evaluation today. Patient presents with allergic reaction feeling better here in the ER with no distress no wheezing no stridor patient can be discharged home - Lab Data Result diagrams: 08/21/23 16:12 08/21/23 16:12 Lab Results 08/21/23 08/21/23 Range/Units 16:12 16:12 WBC 9.1 (3.8-10.6) k/uL RBC 4.20 (3.80-5.40) m/uL Hgb 12.1 (11.4-16.0) gm/dL Hct 37.7 (34.0-46.0) % MCV 89.8 (80.0-100.0) fL MCH 28.7 (25.0-35.0) pg MCHC 32.0 (31.0-37.0) g/dL RDW 13.6 (11.5-15.5) % Plt Count 199 (150-450) k/uL MPV 6.5 Neutrophils % 93 % Lymphocytes % 5 % Monocytes % 2 % Eosinophils % 0 % Basophils % 0 % Neutrophils # 8.5 H (1.3-7.7) k/uL Lymphocytes # 0.5 L (1.0-4.8) k/uL Monocytes # 0.1 (0-1.0) k/uL Eosinophils # 0.0 (0-0.7) k/uL Basophils # 0.0 (0-0.2) k/uL Sodium 129 L (137-145) mmol/L Potassium 4.2 (3.5-5.1) mmol/L Chloride 100 (98-107) mmol/L Carbon Dioxide 25 (22-30) mmol/L Anion Gap 4 mmol/L BUN 13 (7-17) mg/dL Creatinine 0.73 (0.52-1.04) mg/dL Est GFR (CKD-EPI)AfAm >90 (>60 ml/min/1.73 sqM) Est GFR (CKD-EPI)NonAf >90 (>60 ml/min/1.73 sqM) Glucose 104 H (74-99) mg/dL Calcium 8.8 (8.4-10.2) mg/dL Total Bilirubin 0.6 (0.2-1.3) mg/dL AST 29 (14-36) U/L ALT 19 (4-34) U/L Alkaline Phosphatase 77 (38-126) U/L Total Protein 5.9 L (6.3-8.2) g/dL Albumin 3.7 (3.5-5.0) g/dL - EKG Data -: EKG Interpreted by Me (EKG is sinus 76 AL 174 QRS 86 QTc 449) Disposition Clinical Impression: Allergic reaction, Urticaria Disposition: HOME SELF-CARE Condition: Good Instructions (If sedation given, give patient instructions): Urticaria (ED), Anaphylaxis (ED) Prescriptions: hydrOXYzine HCL [Atarax] 25 mg PO TID PRN #15 tab PRN Reason: Itching predniSONE 50 mg PO DAILY #5 tab Is patient prescribed a controlled substance at d/c from ED?: No Referrals: Audie Farris MD [Primary Care Provider] - 1-2 days Time of Disposition: 17:00
[2023-08-21] MEDS: SODIUM CHLORIDE 0.9% 1,000 ML IV STA (16:37)
[2023-08-21] MEDS: diphenhydrAMINE 50 MG/ML 1 ML VIAL IVP STA (16:39)
[2023-08-21] MEDS: methylPREDNISolone SOD SUCCI 125 MG/2 ML VIAL IV STA (16:39)
[2023-08-21] MEDS: FAMOTIDINE 20 MG/2 ML VIAL IV STA (16:46)
[2023-08-21 16:53] VITALS: TEMP 97.8
[2023-08-21 17:01] LABS: Basophils % (A) 0 %; Eosinophils % (A) 0 %; HCT 37.7 % (34.0-46.0); HGB 12.1 gm/dL (11.4-16.0); Lymphocytes # (A) 0.5 k/uL (1.0-4.8); Lymphocytes % (A) 5 %; MCH 28.7 pg (25.0-35.0); MCV 89.8 fL (80.0-100.0); Mean Platelet Volume 6.5; Monocytes # (A) 0.1 k/uL (0-1.0); Monocytes % (A) 2 %; Neutrophils # (A) 8.5 k/uL (1.3-7.7); Neutrophils % (A) 93 %; Platelet Count 199 k/uL (150-450); RDW 13.6 % (11.5-15.5); WBC 9.1 k/uL (3.8-10.6)
[2023-08-21 17:16] LABS: ALT 19 U/L (4-34); AST 29 U/L (14-36); African American GFR (CKD) >90 (>60 ml/min/1.73 sqM); Albumin 3.7 g/dL (3.5-5.0); Alkaline Phosphatase 77 U/L (38-126); Anion Gap 4 mmol/L; Blood Urea Nitrogen 13 mg/dL (7-17); Calcium 8.8 mg/dL (8.4-10.2); Carbon Dioxide 25 mmol/L (22-30); Chloride 100 mmol/L (98-107); Glucose 104 mg/dL (74-99); Non-African American GFR(CKD) >90 (>60 ml/min/1.73 sqM); Potassium 4.2 mmol/L (3.5-5.1); Sodium 129 mmol/L (137-145); Total Bilirubin 0.6 mg/dL (0.2-1.3); Total Protein 5.9 g/dL (6.3-8.2)
[2023-08-21 17:32] VITALS: RESP 20
[2023-08-21 18:11] VITALS: BP 150/80; PULSE 68
== END 2023-08-21 17:50 | disposition home or self-care (01) ==
LOC: EC 15:23
DX: L50.0 Allergic urticaria (principal); Z88.1 Allergy status to other antibiotic agents; Z88.8 Allergy status to other drugs, medicaments and biological substances
CPT/HCPCS: 36415; 80053; 85025; 99284; 96374; 96375 ×2; 96361; J1200; J3490; J2919; 93005

== ENCOUNTER → 2023-09-29 | Outpatient (CLI) | payer OTHER ==
--- NOTE | 2023-09-29 21:00 | MR ---
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 COMPARISON: 08/08/2023. TECHNIQUE: Multi planar, multi sequence imaging was performed through the brain including: T1, T2, In version recovery, Diffusion weighted imaging, and gradient echo imaging. No gadolinium was given. FINDINGS: Continued evolution of infarcts seen in the right frontal lobe and right parietal region on prior MRI 08/08/2023. Hemosiderin deposition within these areas is present with blooming artifact not ed. No new acute areas of restriction diffusion. Mild cerebral atrophy with proportional dilation of ventricular system. Scattered foci of high T2 signal intensity are seen within the periventricular white matter. Midline structures show no abnormality. The bone marrow signal is within normal limits. Paranasal sinuses and mastoid air cells: No significant paranasal sinus disease. Visualized orbits: Orbital contents are intact. IMPRESSION: 1. Continued evolution of prior infarcts, no new acute/subacute CVA.. 2. Nonspecific white matter changes, likely secondary to small vessel ischemic disease.
== END | disposition home or self-care (01) ==
LOC: RADMRIMAIN 18:53
PROVIDERS: ATTEND Psychiatry & Neurology Neurology
DX: I65.23 Occlusion and stenosis of bilateral carotid arteries (principal); I67.82 Cerebral ischemia; R90.82 White matter disease, unspecified
CPT/HCPCS: 70551

== ENCOUNTER → 2023-10-28 | Outpatient (CLI) | payer OTHER ==
[2023-10-28 22:47] LABS: Clam IgE <0.10 kU/L; Codfish IgE <0.10 kU/L; Egg White IgE 0.75 kU/L; Peanut IgE <0.10 kU/L; Scallop IgE <0.10 kU/L; Shrimp IgE <0.10 kU/L; Soybean IgE <0.10 kU/L; Walnut IgE (Food) <0.10 kU/L
[2023-10-29 14:01] LABS: Avocado Class CLASS 0/1; Banana IgE Class CLASS 0/1; Beef IgE <0.10 kU/L (<0.10); Beef IgE Class CLASS 0; Chicken IgE Class CLASS 0; Chocolate IgE Class CLASS 0; Gluten IgE Class CLASS 0; Hazelnut IgE <0.10 kU/L (<0.10); Hazelnut IgE Class CLASS 0; Kiwi IgE 0.12 kU/L (<0.10); Kiwi IgE Class CLASS 0/1; Latex IgE Class CLASS 0; Lettuce IgE Class CLASS 0; Onion IgE <0.10 kU/L (<0.10); Onion IgE Class CLASS 0; Pork IgE Class CLASS 0; Yeast Bakers/Brew IgE <0.10 kU/L (<0.10); Yeast Bakers/Brew IgE Class CLASS 0
== END | disposition home or self-care (01) ==
LOC: LABWHC1 11:52
PROVIDERS: ATTEND Otolaryngology
DX: L50.0 Allergic urticaria (principal)
CPT/HCPCS: 36415; 82785; 86003

== ENCOUNTER 2023-11-16 10:23 | Emergency (ER) | payer OTHER ==
[2023-11-16 10:29] VITALS: RESP 18
--- NOTE | 2023-11-16 10:49 | ED ---
General Adult HPI - General Chief complaint: Allergic Reaction Stated complaint: Allergic reaction Time Seen by Provider: 11/16/23 10:25 Source: patient, RN notes reviewed, old records reviewed Mode of arrival: ambulatory Limitations: no limitations - History of Present Illness Initial comments: 58-year-old female presenting for evaluation of rash. Patient's rash began shortly after starting Zetia for cholesterol. Patient states she discontinued this medication 2 days prior and was seen by her primary care provider she was prescribed Benadryl and prednisone. Patient states the rash is on her soles of her hands and her chest. She has no difficulty breathing. No tongue or lip swelling. No vomiting. Patient has had previous drug reaction to atorvastatin and rosuvastatin - Related Data Home Medications Medication Instructions Recorded Confirmed Multivitamins, Thera [Multivitamin 1 tab PO DAILY@1200 06/20/19 08/07/23 (formulary)] [place]-3 Fatty Acids/Fish Oil [Fish 1 cap PO DAILY 06/20/19 08/07/23 Oil 1,000 mg Softgel] ALPRAZolam [Xanax] 0.125 mg PO DAILY PRN 08/07/23 08/07/23 Acetaminophen Tab [Tylenol] 1,000 mg PO Q6H PRN 08/07/23 08/07/23 Aspirin EC [Ecotrin Low Dose] 81 mg PO DAILY@0700 08/07/23 08/07/23 Atorvastatin [Lipitor] 40 mg PO HS 08/07/23 08/07/23 Cephalexin [Keflex] 500 mg PO Q6H 08/07/23 08/07/23 FLUoxetine HCL [PROzac] 10 mg PO DAILY 08/07/23 08/07/23 High Potency Vitamin D3 5000iu 125 mcg PO DAILY@1200 08/07/23 08/07/23 Levothyroxine Sodium [Synthroid] 44 mcg PO BOWLES@30 08/07/23 08/07/23 Levothyroxine Sodium [Synthroid] 88 mcg PO MOTUWETHFRSA@62908/07/23 08/07/23 Magnesium Glycinate 350mg 350 mg PO BID-W/MEALS 08/07/23 08/07/23 Ondansetron Odt [Zofran ODT] 4 mg PO Q12H PRN 08/07/23 08/07/23 Ticagrelor [Brilinta] 90 mg PO BID-W/MEALS 08/07/23 08/07/23 Previous Rx's Medication Instructions Recorded lisinopriL [Zestril] 5 mg PO DAILY #30 tab 08/09/23 methylPREDNISolone Dose Pack 4 mg PO DIRECTED #1 packet 08/09/23 [Medrol Dose Pack] hydrOXYzine HCL [Atarax] 25 mg PO TID PRN #15 tab 08/21/23 predniSONE 50 mg PO DAILY #5 tab 08/21/23 Allergies Allergy/AdvReac Type Severity Reaction Status Date / Time azithromycin [From Zithromax] AdvReac Nausea & Verified 08/21/23 15:41 Vomiting cyclobenzaprine AdvReac lethargic Verified 08/21/23 15:41 [From Flexeril] ezetimibe AdvReac Rash/Hives Verified 11/16/23 10:30 unknown diuretic AdvReac depleted Uncoded 08/21/23 15:41 electrolytes Review of Systems ROS Statement: Those systems with pertinent positive or pertinent negative responses have been documented in the HPI. ROS Other: All systems not noted in ROS Statement are negative. Past Medical History Past Medical History: Hypertension, Thyroid Disorder History of Any Multi-Drug Resistant Organisms: None Reported Past Surgical History: Orthopedic Surgery Additional Past Surgical History / Comment(s): cervical fusion Past Anesthesia/Blood Transfusion Reactions: No Reported Reaction Past Psychological History: No Psychological Hx Reported Smoking Status: Never smoker Past Alcohol Use History: Occasional Past Drug Use History: None Reported - Past Family History Mother Brother(s) History Unknown: Yes Family Medical History: Hypertension General Exam Limitations: no limitations General appearance: alert, in no apparent distress Head exam: Present: atraumatic, normocephalic Eye exam: Present: normal appearance, PERRL ENT exam: Present: normal exam, normal oropharynx Neck exam: Present: normal inspection. Absent: tenderness, meningismus Respiratory exam: Present: normal lung sounds bilaterally. Absent: respiratory distress, wheezes Cardiovascular Exam: Present: regular rate, normal rhythm GI/Abdominal exam: Present: soft. Absent: distended, tenderness Extremities exam: Present: normal inspection Neurological exam: Present: alert, oriented X3 Psychiatric exam: Present: anxious Skin exam: Present: rash (Very fine erythematous rash on the chest. No urticaria.) Course Vital Signs 11/16/23 11/16/23 11/16/23 10:26 10:39 10:52 Temperature 97.7 F 97.9 F Pulse Rate 83 88 Respiratory 18 18 18 Rate Blood Pressure 187/88 176/90 O2 Sat by Pulse 100 99 Oximetry Medical Decision Making - Medical Decision Making Was pt. sent in by a medical professional or institution (REGAN Alexander, SALES RESEARCH ANALYST, urgent care, hospital, or half-way...) When possible be specific @ -No Did you speak to anyone other than the patient for history (EMS, parent, family, police, friend...)? What history was obtained from this source @ -No Did you review nursing and triage notes (agree or disagree)? Why? @ -I reviewed and agree with nursing and triage notes Were old charts reviewed (outside hosp., previous admission, EMS record, old EKG, old radiological studies, urgent care reports/EKG's, half-way records)? Report findings @ -No old charts were reviewed Differential Diagnosis: Drug eruption, Marquez-Candelario's, erythema multiforme EKG interpreted by me (3pts min.). @ -As above X-rays interpreted by me (1pt min.). @ -None done CT interpreted by me (1pt min.). @ -None done U/S interpreted by me (1pt. min.). @ -None done What testing was considered but not performed or refused? (CT, X-rays, U/S, labs)? Why? @ -None What meds were considered but not given or refused? Why? @ -None Did you discuss the management of the patient with other professionals (kwabena mullins i.e. REGAN Alexander, SALES RESEARCH ANALYST, lab, RT, psych nurse, social director, office mover, teacher, food safety officer, case fitter)? Give summary @ -No Was smoking cessation discussed for >3mins.? @ -No Was critical care preformed (if so, how long)? @ -No Were there social determinants of health that impacted care today? How? (Homelessness, low income, unemployed, alcoholism, drug addiction, transportation, low edu. Level, literacy, decrease access to med. care, long term, rehab)? @ -No Was there de-escalation of care discussed even if they declined (Discuss DNR or withdrawal of care, Hospice)? DNR status @ -No What co-morbidities impacted this encounter? (DM, HTN, Smoking, COPD, CAD, Cancer, CVA, ARF, Chemo, Hep., AIDS, mental health diagnosis, sleep apnea, morbid obesity)? @ -None Was patient admitted / discharged? Hospital course, mention meds given and route, prescriptions, significant lab abnormalities, going to OR and other pertinent info. @ -This is a well-appearing 58-year-old female with rash which she believes is associated with new medication Zetia which was started earlier this week and discontinued 2 days prior. The rash is subtle predominantly on the chest at this time. Patient states it was on her hands but this has improved. Patient is currently on Benadryl and prednisone prescribed by her primary care provider. No signs of anaphylaxis or worsening rash at this time. Patient will monitor closely and she is given return parameters. She will follow-up with her primary care provider. Undiagnosed new problem with uncertain prognosis? @ -No Drug Therapy requiring intensive monitoring for toxicity (Heparin, Nitro, Insulin, Cardizem)? @ -No Were any procedures done? @ -No Diagnosis/symptom? @Drug reaction, allergic reaction Acute, or Chronic, or Acute on Chronic? @ -Acute Uncomplicated (without systemic symptoms) or Complicated (systemic symptoms)? @ -Default Side effects of treatment? @ -No Exacerbation, Progression, or Severe Exacerbation? @ -No Poses a threat to life or bodily function? How? (Chest pain, [place], [place], pneumonia, PE, COPD, DKA, ARF, appy, cholecystitis, CVA, Diverticulitis, Homicidal, Suicidal, threat to staff... and all critical care pts) @ -[Low risk at this time Disposition Clinical Impression: Allergic reaction to drug Disposition: HOME SELF-CARE Condition: Good Instructions (If sedation given, give patient instructions): General Allergic Reaction (ED) Additional Instructions: Please discontinue Zetia, please continue prednisone and follow closely with your primary care provider. Is patient prescribed a controlled substance at d/c from ED?: No Referrals: Audie Farris MD [Primary Care Provider] - 1-2 days Time of Disposition: 10:48
[2023-11-16 10:55] VITALS: BP 176/90; PULSE 88; TEMP 97.9
== END 2023-11-16 10:52 | disposition home or self-care (01) ==
LOC: EC 10:23
DX: R21 Rash and other nonspecific skin eruption (principal); T46.6X5A Adverse effect of antihyperlipidemic and antiarteriosclerotic drugs, initial encounter; Z88.1 Allergy status to other antibiotic agents; Z88.8 Allergy status to other drugs, medicaments and biological substances
CPT/HCPCS: 99283

== ENCOUNTER 2024-01-28 15:41 | Inpatient (IN) | payer OTHER ==
--- NOTE | 2024-01-28 16:12 | ED ---
Recheck HPI - General Source: patient, RN notes reviewed Mode of arrival: ambulatory Limitations: no limitations <Becky Saenz - Last Filed: 01/28/24 16:12> - General Source: patient, RN notes reviewed, old records reviewed Mode of arrival: ambulatory Limitations: no limitations - History of Present Illness MD Complaint: abnormal lab (Elevated blood pressure) -: days(s) (2) Returns Today for: persistent/worsening pain related to initial visit Symptoms Since Prior Visit: no new symptoms Context: called for abnormal lab result Associated Symptoms: none <Kahlil Sanz - Last Filed: 01/31/24 17:56> - General Chief Complaint: Recheck/Abnormal Lab/Rx Stated Complaint: bp issues Time Seen by Provider: 01/28/24 16:00 - History of Present Illness Initial Comments: Quick Note: This is a 58 year old female who presents to the emergency department for elevated blood pressure. Patient states that her blood pressure is usually in the 120s to 130s systolically. Yesterday her blood pressure started to go up into the 180s and has gotten up into the 200s at home. Currently takes lisinopril 5 mg which she has been compliant with. Took an additional half tablet to see if it would help with her blood pressure. States that it came down temporarily and then went back up. She is very anxious because she had a stroke earlier this year. Denies any headaches or chest pain. (Becky Saenz) This is a 4-year-old female presenting for elevated blood pressure and anxiety. Patient took her blood pressure yesterday and was significantly better. With patient again this morning it was even higher. Patient took lisinopril which she takes at 5 mg/day since her prior CVA without any blood pressure issues. Patient took medication as prescribed with no help and blood pressure (Kahlil Sanz) - Related Data Home Medications Medication Instructions Recorded Confirmed Multivitamins, Thera [Multivitamin 1 tab PO DAILY@1200 06/20/19 01/28/24 (formulary)] [place]-3 Fatty Acids/Fish Oil [Fish 1 cap PO DAILY@0900 06/20/19 01/28/24 Oil 1,000 mg Softgel] ALPRAZolam [Xanax] 0.25 - 0.5 mg PO DAILY PRN 08/07/23 01/28/24 Aspirin EC [Ecotrin Low Dose] 81 mg PO DAILY@0900 08/07/23 01/28/24 Levothyroxine Sodium [Synthroid] 44 mcg PO BOWLES@0500 08/07/23 01/28/24 Levothyroxine Sodium [Synthroid] 88 mcg PO MOTUWETHFRSA@0500 08/07/23 01/28/24 Ticagrelor [Brilinta] 90 mg PO BID-W/MEALS@,08/07/23 01/28/24 Cholecalciferol [Vitamin D3 (125 125 mcg PO DAILY@1200 01/28/24 01/28/24 Mcg = 5000 Iu)] EPINEPHrine (Auto Inject) [Epipen] 0.3 mg IM ONCE PRN 01/28/24 01/28/24 Evolocumab [Repatha Syringe] 140 mg SQ Q14D 01/28/24 01/28/24 FLUoxetine HCL 40 mg PO DAILY@0900 01/28/24 01/28/24 Mupirocin 2% Oint [Bactroban 2% 1 applic TOPICAL DIRECTED 01/28/24 01/28/24 Oint] Tretinoin [Tretinoin 0.025%] 1 applic TOPICAL HS 01/28/24 01/28/24 Previous Rx's Medication Instructions Recorded amLODIPine [Norvasc] 5 mg PO DAILY #60 tab 01/30/24 lisinopriL [Zestril] 10 mg PO DAILY #60 tab 01/30/24 Allergies Allergy/AdvReac Type Severity Reaction Status Date / Time avocado Allergy Rash/Hives Verified 01/28/24 19:05 banana Allergy Rash/Hives Verified 01/28/24 19:05 egg Allergy Rash/Hives Verified 01/28/24 19:05 ezetimibe Allergy Rash/Hives Verified 01/28/24 19:05 kiwi Allergy Rash/Hives Verified 01/28/24 19:05 Lactobacillus rhamnosus GG Allergy Rash/Hives Verified 01/28/24 19:05 [From Culturelle] polyethylene glycol 3350 Allergy Rash/Hives Verified 01/28/24 19:05 [From Miralax] [id number] Reductase Allergy Rash/Hives Verified 01/28/24 19:05 Inhibitor azithromycin [From Zithromax] AdvReac Nausea & Verified 01/28/24 19:05 Vomiting cyclobenzaprine AdvReac lethargic, Verified 01/28/24 19:05 [From Flexeril] weakness hydrochlorothiazide AdvReac depleted Verified 01/28/24 19:05 [From Dyazide] electrolytes, syncope triamterene [From Dyazide] AdvReac depleted Verified 01/28/24 19:05 electrolytes, syncope Review of Systems ROS Other: All systems not noted in ROS Statement are negative. <Becky Saenz - Last Filed: 01/28/24 16:12> ROS Other: All systems not noted in ROS Statement are negative. <Kahlil Sanz - Last Filed: 01/31/24 17:56> ROS Statement: Those systems with pertinent positive or pertinent negative responses have been documented in the HPI. Past Medical History Past Medical History: CVA/TIA, Hypertension, Thyroid Disorder History of Any Multi-Drug Resistant Organisms: None Reported Past Surgical History: Orthopedic Surgery Additional Past Surgical History / Comment(s): cervical fusion Past Anesthesia/Blood Transfusion Reactions: No Reported Reaction Past Psychological History: No Psychological Hx Reported Smoking Status: Never smoker Past Alcohol Use History: Occasional Past Drug Use History: None Reported - Past Family History Mother Brother(s) History Unknown: Yes Family Medical History: Hypertension <Becky Saenz - Last Filed: 01/28/24 16:12> General Exam Limitations: no limitations <Becky Saenz - Last Filed: 01/28/24 16:12> General appearance: alert, in no apparent distress Head exam: Present: atraumatic, normocephalic, normal inspection Eye exam: Present: normal appearance, PERRL, EOMI. Absent: scleral icterus, conjunctival injection, periorbital swelling ENT exam: Present: normal exam, mucous membranes moist Neck exam: Present: normal inspection. Absent: tenderness, meningismus, lymphadenopathy Respiratory exam: Present: normal lung sounds bilaterally. Absent: respiratory distress, wheezes, rales, rhonchi, stridor Cardiovascular Exam: Present: regular rate, normal rhythm, normal heart sounds. Absent: systolic murmur, diastolic murmur, rubs, gallop, clicks GI/Abdominal exam: Present: soft, normal bowel sounds. Absent: distended, tenderness, guarding, rebound, rigid Extremities exam: Present: normal inspection, full ROM, normal capillary refill. Absent: tenderness, pedal edema, joint swelling, calf tenderness Back exam: Present: normal inspection Neurological exam: Present: alert, oriented X3, CN II-XII intact Psychiatric exam: Present: normal affect, normal mood Skin exam: Present: warm, dry, intact, normal color. Absent: rash <Kahlil Sanz - Last Filed: 01/31/24 17:56> - General Exam Comments Initial Comments: Visual Physical Exam Vital signs reviewed General: Well-appearing, nontoxic, no acute distress. Head: Normocephalic, atraumatic Eyes: PERRLA, EOMI ENT: Airway patent Chest: Nonlabored breathing Skin: No visual rash, normal skin tone Neuro: Alert and oriented 3 Musculoskeletal: No gross abnormalities (Becky Saenz) Course <Kahlil Sanz - Last Filed: 01/31/24 17:56> Vital Signs 01/28/24 01/28/24 01/28/24 15:59 17:11 17:40 Temperature 97.9 F 98.8 F Pulse Rate 91 72 Pulse Rate [ 75 Pulse Oximetery ] Respiratory 18 17 Rate Blood Pressure 194/138 184/113 O2 Sat by Pulse 97 97 Oximetry 01/28/24 01/28/24 01/28/24 18:45 19:54 22:43 Temperature Pulse Rate 63 77 72 Pulse Rate [ Pulse Oximetery ] Respiratory 16 18 18 Rate Blood Pressure 145/83 152/88 174/98 O2 Sat by Pulse 97 96 97 Oximetry - Reevaluation(s) Reevaluation #1: 01/28/24 17:25 Medical records reviewed (Kahlil Sanz) Reevaluation #2: 01/28/24 17:25 Patient symptoms unchanged (Kahlil Sanz) Reevaluation #3: 01/28/24 17:25 Patient informed of results and questions answered (Kahlil Sanz) Reevaluation #4: Was pt. sent in by a medical professional or institution (, PA, DIRECTOR MUSEUM OR ZOO, urgent care, hospital, or fdc...) When possible be specific @ -no Did you speak to anyone other than the patient for history (EMS, parent, family, police, friend...)? What history was obtained from this source @ -no Did you review nursing and triage notes (agree or disagree)? Why? @ -agree Are old charts reviewed (outside hosp., previous admission, EMS record, old EKG, old radiological studies, urgent care reports/EKG's, fdc records)? Report findings @ -yes Differential Diagnosis (chest pain, altered mental status, abdominal pain women, abdominal pain men, vaginal bleeding, weakness, fever, dyspnea, syncope, headache, dizziness, GI bleed, back pain, seizure, CVA, palpatations, mental health, musculoskeletal)? @ -prior EKG interpreted by me (3pts min.). @ -yes X-rays interpreted by me (1pt min.). @ -no CT interpreted by me (1pt min.). @ -no U/S interpreted by me (1pt. min.). @ -no What testing was considered but not performed or refused? (CT, X-rays, U/S, labs)? Why? @ -none What meds were considered but not given or refused? Why? @ -none Did you discuss the management of the patient with other professionals (professionals i.e. , PA, DIRECTOR MUSEUM OR ZOO, lab, RT, psych nurse, social services coordinator, freight hustler, teacher, hospital chief financial officer, pillowcase sewer)? Give summary @ -no Was smoking cessation discussed for >3mins.? @ -no Was critical care preformed (if so, how long)? @ -no Were there social determinants of health that impacted care today? How? (Homelessness, low income, unemployed, alcoholism, drug addiction, transportation, low edu. Level, literacy, decrease access to med. care, detention, rehab)? @ -none Was there de-escalation of care discussed even if they declined (Discuss DNR or withdrawal of care, Hospice)? DNR status @ -no What co-morbidities impacted this encounter? (DM, HTN, Smoking, COPD, CAD, Cancer, CVA, ARF, Chemo, Hep., AIDS, mental health diagnosis, sleep apnea, morbid obesity)? @ -none Was patient admitted / discharged? Hospital course, mention meds given and route, prescriptions, significant lab abnormalities, going to OR and other pertinent info. @ - 58 female to the ER for evaluation today. [place] evaluation of elevated blood pressure on an outpatient basis, severely elevated blood pressure at home and remains elevated here in the ER will admit for blood pressure control found to be severely hyponatremic and will get internal medicine evaluation regarding cause of hyponatremia Admitted Undiagnosed new problem with uncertain prognosis? @ -no Drug Therapy requiring intensive monitoring for toxicity (Heparin, Nitro, Insulin, Cardizem)? @ -no Were any procedures done? @ -no Diagnosis/symptom? @ -Hyponatremia hypertension Acute, or Chronic, or Acute on Chronic? @ -Acute Uncomplicated (without systemic symptoms) or Complicated (systemic symptoms)? @ -Complicated Side effects of treatment? @ -no Exacerbation, Progression, or Severe Exacerbation? @ -exacerbation Poses a threat to life or bodily function? How? (Chest pain, [place], [place], pneumonia, PE, COPD, DKA, ARF, appy, cholecystitis, CVA, Diverticulitis, Homicidal, Suicidal, threat to staff... and all critical care pts) @ -yes (Kahlil Sanz) - Consultations Consultation #1: Spoke with sound who agrees to admit this patient (Kahlil Sanz) Medical Decision Making <Becky Saenz - Last Filed: 01/28/24 16:12> - Lab Data Result diagrams: 01/30/24 04:59 01/30/24 04:59 <Kahlil Sanz - Last Filed: 01/31/24 17:56> - Medical Decision Making I performed the QuickNote portion of this chart. Signed Becky Saenz PA-C. (Becky Saenz) 58 female to the ER for evaluation today. Patient [facility] for evaluation of elevated blood pressure on an outpatient basis, severely elevated blood pressure at home and remains elevated here in the ER will admit for blood pressure control found to be severely hyponatremic and will get internal medicine evaluation regarding cause of hyponatremia (Kahlil Sanz) - Lab Data Lab Results 01/28/24 01/28/24 01/28/24 Range/Units 16:08 16:08 16:24 WBC 7.8 (3.8-10.6) k/uL RBC 4.53 (3.80-5.40) m/uL Hgb 13.3 (11.4-16.0) gm/dL Hct 40.2 (34.0-46.0) % MCV 88.8 (80.0-100.0) fL MCH 29.4 (25.0-35.0) pg MCHC 33.1 (31.0-37.0) g/dL RDW 12.4 (11.5-15.5) % Plt Count 285 (150-450) k/uL MPV 6.5 Neutrophils % 76 % Lymphocytes % 17 % Monocytes % 4 % Eosinophils % 1 % Basophils % 0 % Neutrophils # 5.9 (1.3-7.7) k/uL Lymphocytes # 1.3 (1.0-4.8) k/uL Monocytes # 0.3 (0-1.0) k/uL Eosinophils # 0.1 (0-0.7) k/uL Basophils # 0.0 (0-0.2) k/uL Sodium 123 L (137-145) mmol/L Potassium 4.8 (3.5-5.1) mmol/L Chloride 92 L (98-107) mmol/L Carbon Dioxide 24 (22-30) mmol/L Anion Gap 7 mmol/L BUN 11 (7-17) mg/dL Creatinine 0.57 (0.52-1.04) mg/dL Est GFR (CKD-EPI)AfAm >90 (>60 ml/min/1.73 sqM) Est GFR (CKD-EPI)NonAf >90 (>60 ml/min/1.73 sqM) Glucose 92 (74-99) mg/dL Calcium 9.8 (8.4-10.2) mg/dL Total Bilirubin 1.4 H (0.2-1.3) mg/dL AST 37 H (14-36) U/L ALT 18 (4-34) U/L Alkaline Phosphatase 75 (38-126) U/L Total Protein 7.8 (6.3-8.2) g/dL Albumin 5.1 H (3.5-5.0) g/dL Urine Color Colorless Urine Appearance Clear (Clear) Urine pH 6.5 (5.0-8.0) Ur Specific [place] 1.001 (1.001-1.035) Urine Protein Negative (Negative) Urine Glucose (UA) Negative (Negative) Urine Ketones Trace H (Negative) Urine Blood Negative (Negative) Urine Nitrite Negative (Negative) Urine Bilirubin Negative (Negative) Urine Urobilinogen <2.0 (<2.0) mg/dL Ur Leukocyte Esterase Negative (Negative) Disposition <Becky Saenz - Last Filed: 01/28/24 16:12> Is patient prescribed a controlled substance at d/c from ED?: No Time of Disposition: 18:20 <Kahlil Sanz - Last Filed: 01/31/24 17:56> Clinical Impression: Hyponatremia, Hypertension Disposition: ADMITTED IP TO THIS HOSP Condition: Stable
[2024-01-28 16:32] LABS: Basophils % (A) 0 %; Eosinophils # (A) 0.1 k/uL (0-0.7); Eosinophils % (A) 1 %; HCT 40.2 % (34.0-46.0); HGB 13.3 gm/dL (11.4-16.0); Lymphocytes # (A) 1.3 k/uL (1.0-4.8); Lymphocytes % (A) 17 %; MCH 29.4 pg (25.0-35.0); MCHC 33.1 g/dL (31.0-37.0); MCV 88.8 fL (80.0-100.0); Mean Platelet Volume 6.5; Monocytes # (A) 0.3 k/uL (0-1.0); Monocytes % (A) 4 %; Neutrophils # (A) 5.9 k/uL (1.3-7.7); Neutrophils % (A) 76 %; Platelet Count 285 k/uL (150-450); RBC 4.53 m/uL (3.80-5.40); RDW 12.4 % (11.5-15.5); WBC 7.8 k/uL (3.8-10.6)
[2024-01-28 16:33] LABS: Appearance,Urine Clear (Clear); Bilirubin,Urine Negative (Negative); Blood,Urine Negative (Negative); Color,Urine Colorless; Glucose,Urine (UA) Negative (Negative); Ketones,Urine Trace (Negative); Leukocyte Esterase,Urine Negative (Negative); Nitrite,Urine Negative (Negative); PH, Urine 6.5 (5.0-8.0); Protein,Urine Negative (Negative); Specific Gravity,Urine 1.001 (1.001-1.035); Urobilinogen,Urine <2.0 mg/dL (<2.0)
[2024-01-28 17:01] LABS: ALT 18 U/L (4-34); African American GFR (CKD) >90 (>60 ml/min/1.73 sqM); Anion Gap 7 mmol/L; Blood Urea Nitrogen 11 mg/dL (7-17); Calcium 9.8 mg/dL (8.4-10.2); Carbon Dioxide 24 mmol/L (22-30); Chloride 92 mmol/L (98-107); Glucose 92 mg/dL (74-99); Non-African American GFR(CKD) >90 (>60 ml/min/1.73 sqM); Sodium 123 mmol/L (137-145); Total Bilirubin 1.4 mg/dL (0.2-1.3)
[2024-01-28 17:33] LABS: AST 37 U/L (14-36); Albumin 5.1 g/dL (3.5-5.0); Potassium 4.8 mmol/L (3.5-5.1); Total Protein 7.8 g/dL (6.3-8.2)
[2024-01-28 17:34] LABS: Alkaline Phosphatase 75 U/L (38-126)
[2024-01-28] MEDS: hydrALAZINE HCL 20 MG/ML 1 ML VIAL IVP STA (18:10)
[2024-01-28] MEDS ORDERED: ONDANSETRON 4 MG/2 ML VIAL IVP PRN (18:23)
[2024-01-28] MEDS ORDERED: NALOXONE 0.4 MG/ML 1 ML VIAL IV PRN (18:23)
[2024-01-28] MEDS: SODIUM CHLORIDE 0.9% 1,000 ML IV SCH (19:59)
[2024-01-28] MEDS: LABETALOL 5 MG/ML VIAL MDV IVP STA (22:42)
--- NOTE | 2024-01-28 22:50 | P.HPIM ---
History of Present Illness H&P Date: 01/28/24 Chief Complaint: high blood pressure Patient is a 58-year-old female with hypertension who presented to the ED for high blood pressure. She mentions measuring her blood pressure yesterday as a regular check and her systolic blood pressure was in 180s and it increased to 200s a little while later. She reported her dose of lisinopril and her blood pressure did come down temporarily but it went back up again. At this point the patient started getting anxious. She experienced a stroke in June 2023 from which she has some residual weakness in her left leg. She states that she has reduced sodium intake in her diet since the stroke. She also complains of a mild headache. She denies any chest pain, palpitations, shortness of breath, dizziness, slurring of speech, vision difficulties, falls , abdominal pain, nausea, vomiting, fever, chills, dysuria. ED documentation reviewed. EKG shows sinus rhythm, rate of 76 bpm, QTc 428 ms. UA shows trace ketones. Review of systems: Pertinent positives and negatives as discussed in HPI, a complete review of systems was performed and all other systems are negative. PMH: Hypertension, hypothyroidism, anxiety, herniated disc C3-4 PSH: Surgery for herniated disc C5-6-7 FMH: Diabetes, hypertension Allergies: Lipitor, ezetimibe Social history: Tobacco: Quit smoking in 2007 Alcohol: Quit drinking in December 2022 Recreational drugs: Occasional edible Gummies Travel: Went on a cruise on January 22 Sick contacts: None Physical examination: Vitals: T97.9 Fahrenheit, P91 bpm, RR 18, BP 194/138, O2 sat 97% on room air General: non toxic, no distress, appears at stated age, normal BMI Derm: no unusual rashes/lesions, warm Head: atraumatic, normocephalic, symmetric Eyes: EOMI, anicteric sclera ENT: Nose and ears atraumatic Mouth: no lip lesion, mucus membranes moist Cardiovascular: S1S2 reg, no murmur, no edema Lungs: CTA bilateral, no rhonchi, no rales, no accessory muscle use Abdominal: soft, nontender to palpation, no guarding Ext: muscle strength 5 out of 5 in all 4 extremities grossly, no gross muscle atrophy, no contractures, Neuro: CN II-XI grossly intact, no gross focal neuro deficits Psych: Alert, oriented, appropriate affect Assessment/Plan: Patient is a 58-year-old female with hypertension presented to the ED for high blood pressure which did not respond to antihypertensives. Case discussed with ED provider and admission accepted for hypertensive urgency. #. Hypertensive urgency Blood pressure admission 194/138, currently BP 152/88 S/p hydralazine 10 mg, labetalol 20 mg in the ED Clonidine 0.2 mg p.o. every 8 hours as needed for SBP >180 Resume home meds lisinopril 5 mg p.o. daily Telemetry monitoring #. Euvolemic Hyponatremia Low sodium 123 Monitor BMP Urine osmolality, urine sodium, serum osmolality ordered Patient mentions of reducing sodium intake since stroke in July 19 bun 11 cr 0.57 unremarkable #. History of stroke in June 2023 Continue aspirin 81 mg p.o. daily and ticagrelor 90 mg p.o. twice daily #. History of hypothyroidism Continue levothyroxine 44 mcg p.o. on Friday and 88 mcg p.o. on Friday to Friday Check TSH, T4 #. History of anxiety Continue fluoxetine 40 mg p.o. daily and alprazolam 0.25 to 0.5 mg p.o. daily #. Hyperlipidemia Patient on evolocumab 140 mg/mL SQ q. 14 days Check lipid panel #. Nausea and vomiting Continue Zofran 4 mg IV every 8 hours as needed F: 0.9 normal saline at 75 mL/h E: Replete as required N: Regular diet A: Ambulatory DVT prophylaxis: Lovenox 40 mg SQ daily The patient is admitted with an anticipated less than 2 midnight stay for evaluation of hypertension CODE STATUS: Full code Discussed with: Patient Anticipated discharge place: Home Past Medical History Past Medical History: CVA/TIA, Hypertension, Thyroid Disorder History of Any Multi-Drug Resistant Organisms: None Reported Past Surgical History: Orthopedic Surgery Additional Past Surgical History / Comment(s): cervical fusion Past Anesthesia/Blood Transfusion Reactions: No Reported Reaction Past Psychological History: No Psychological Hx Reported Smoking Status: Never smoker Past Alcohol Use History: Occasional Past Drug Use History: None Reported - Past Family History Mother Brother(s) History Unknown: Yes Family Medical History: Hypertension Medications and Allergies Home Medications Medication Instructions Recorded Confirmed Type Multivitamins, Thera [Multivitamin 1 tab PO DAILY@1200 06/20/19 01/28/24 History (formulary)] Curlew-3 Fatty Acids/Fish Oil [Fish 1 cap PO DAILY@0900 06/20/19 01/28/24 History Oil 1,000 mg Softgel] ALPRAZolam [Xanax] 0.25 - 0.5 mg PO DAILY PRN 08/07/23 01/28/24 History Aspirin EC [Ecotrin Low Dose] 81 mg PO DAILY@0900 08/07/23 01/28/24 History Levothyroxine Sodium [Synthroid] 44 mcg PO BOWLES@0500 08/07/23 01/28/24 History Levothyroxine Sodium [Synthroid] 88 mcg PO MOTUWETHFRSA@0500 08/07/23 01/28/24 History Ticagrelor [Brilinta] 90 mg PO BID-W/MEALS@,08/07/23 01/28/24 History Cholecalciferol [Vitamin D3 (125 125 mcg PO DAILY@1200 01/28/24 01/28/24 History Mcg = 5000 Iu)] EPINEPHrine (Auto Inject) [Epipen] 0.3 mg IM ONCE PRN 01/28/24 01/28/24 History Evolocumab [Repatha Syringe] 140 mg SQ Q14D 01/28/24 01/28/24 History FLUoxetine HCL 40 mg PO DAILY@0900 01/28/24 01/28/24 History Mupirocin 2% Oint [Bactroban 2% 1 applic TOPICAL DIRECTED 01/28/24 01/28/24 History Oint] Tretinoin [Tretinoin 0.025%] 1 applic TOPICAL HS 01/28/24 01/28/24 History lisinopriL [Zestril] 5 mg PO DAILY@0800 01/28/24 01/28/24 History Allergies Allergy/AdvReac Type Severity Reaction Status Date / Time avocado Allergy Rash/Hives Verified 01/28/24 19:05 banana Allergy Rash/Hives Verified 01/28/24 19:05 egg Allergy Rash/Hives Verified 01/28/24 19:05 ezetimibe Allergy Rash/Hives Verified 01/28/24 19:05 kiwi Allergy Rash/Hives Verified 01/28/24 19:05 Lactobacillus rhamnosus GG Allergy Rash/Hives Verified 01/28/24 19:05 [From Culturelle] polyethylene glycol 3350 Allergy Rash/Hives Verified 01/28/24 19:05 [From Miralax] [id number] Reductase Allergy Rash/Hives Verified 01/28/24 19:05 Inhibitor azithromycin [From Zithromax] AdvReac Nausea & Verified 01/28/24 19:05 Vomiting cyclobenzaprine AdvReac lethargic, Verified 01/28/24 19:05 [From Flexeril] weakness hydrochlorothiazide AdvReac depleted Verified 01/28/24 19:05 [From Dyazide] electrolytes, syncope triamterene [From Dyazide] AdvReac depleted Verified 01/28/24 19:05 electrolytes, syncope Physical Exam Vitals: Vital Signs Temp Pulse Pulse Resp BP Pulse Ox 01/28/24 19:54 77 18 152/88 96 01/28/24 18:45 63 16 145/83 97 01/28/24 17:40 75 01/28/24 17:11 98.8 F 72 17 184/113 97 01/28/24 15:59 97.9 F 91 18 194/138 97 Intake and Output 01/28/24 01/28/24 01/28/24 06:59 14:59 22:59 Other: Weight 68.039 kg Results CBC & Chem 7: 01/28/24 16:08 01/28/24 16:08 Labs: Abnormal Lab Results - Last 24 Hours (Table) 01/28/24 01/28/24 Range/Units 16:08 16:24 Sodium 123 L (137-145) mmol/L Chloride 92 L (98-107) mmol/L Total Bilirubin 1.4 H (0.2-1.3) mg/dL AST 37 H (14-36) U/L Albumin 5.1 H (3.5-5.0) g/dL Urine Ketones Trace H (Negative) Assessment and Plan Assessment: I have seen and evaluated the patient today. I Discussed the case with the resident and agree with the resident's findings I edited the assessment and plan as necessary as documented in the resident's note.
[2024-01-29] MEDS: MUPIROCIN 2% OINT 22 GM TUBE TOPICAL SCH (00:10)
[2024-01-29] MEDS ORDERED: cloNIDine HCL 0.2 MG TAB PO PRN (00:39)
[2024-01-29] MEDS ORDERED: ALPRAZolam 0.25 MG TAB PO PRN (01:12)
[2024-01-29] MEDS: LEVOTHYROXINE 88 MCG TAB PO SCH (05:22)
[2024-01-29 08:25] LABS: HCT 35.9 % (37.2-46.3); HGB 12.1 g/dL (12.0-15.0); MCH 29.8 pg (27.0-32.0); MCHC 33.7 g/dL (32.0-37.0); MCV 88.4 FL (80.0-97.0); Mean Platelet Volume 8.8 FL (9.5-12.2); NRBC Per 100 WBC 0 X 10*3/uL (0.00-0.01); Platelet Count 262 X 10*3/uL (140-440); RBC 4.06 X 10*6/uL (4.10-5.20); RDW 12.3 % (11.5-14.5); WBC 6.33 X 10*3/uL (4.50-10.00)
[2024-01-29 08:26] LABS: Basophils # (A) 0.03 X 10*3/uL (0.00-0.10); Basophils % (A) 0.5 %; Eosinophils # (A) 0.02 X 10*3/uL (0.04-0.35); Eosinophils % (A) 0.3 %; Lymphocytes % (A) 14.2 %; Monocytes # (A) 0.42 X 10*3/uL (0.20-1.00); Monocytes % (A) 6.6 %; Neutrophils # (A) 4.95 X 10*3/uL (1.80-7.70); Neutrophils % (A) 78.2 %
[2024-01-29 08:42] LABS: BUN/Creat Ratio 14.71 Ratio (12.00-20.00); Blood Urea Nitrogen 10.3 mg/dL (9.0-27.0); Chloride 95 mmol/L (96-109); Glucose 105 mg/dL (70-110); Potassium 4.7 mmol/L (3.5-5.5); Sodium 130 mmol/L (135-145)
[2024-01-29 08:43] LABS: ALT 13 U/L (8-44); AST 16 U/L (13-35); Albumin 4.1 g/dL (3.8-4.9); Albumin/Globulin Ratio 2.16 Ratio (1.60-3.17); Alkaline Phosphatase 77 U/L (41-126); Calcium 9.2 mg/dL (8.7-10.3); Carbon Dioxide 22.3 mmol/L (21.6-31.8); Globulin 1.9 g/dL (1.6-3.3); Magnesium 1.8 mg/dL (1.5-2.4); Phosphorus 4.3 mg/dL (2.4-5.1); Total Bilirubin 0.6 mg/dL (0.3-1.2)
[2024-01-29] MEDS: PANTOPRAZOLE 40 MG TABLET PO SCH (09:21)
[2024-01-29] MEDS: TICAGRELOR 90 MG TAB PO SCH (09:23)
[2024-01-29] MEDS: lisinopriL 5 MG TAB PO SCH (09:23)
[2024-01-29] MEDS: ASPIRIN 81 MG PO SCH (09:23)
[2024-01-29] MEDS: FLUoxetine HCL 20 MG CAP PO SCH (09:23)
[2024-01-29] MEDS: ENOXAPARIN 40 MG/0.4 ML SYRINGE SQ SCH (09:26)
[2024-01-29] MEDS: amLODIPine 5 MG TAB PO SCH (10:30)
[2024-01-29] MEDS: lisinopriL 5 MG TAB PO STA (10:30)
[2024-01-29 10:58] LABS: Potassium,Urine Random 5.2 mmol/L (25.0-125.0)
[2024-01-29] MEDS: CHOLECALCIFEROL 125 MCG (5000 IU) TABLET PO SCH (11:53)
[2024-01-29] MEDS: MULTIVITAMINS, THERA 1 EACH TAB PO SCH (11:53)
[2024-01-29] MEDS: ACETAMINOPHEN TAB 325 MG TAB PO PRN (13:15)
[2024-01-29 14:18] LABS: Chol/HDL Ratio 1.88 Ratio; LDL Cholesterol,Calculated 61.7 mg/dL (0.0-131.0)
--- NOTE | 2024-01-29 14:27 | P.PN ---
Subjective Progress Note Date: 01/29/24 Patient is a 58-year-old female with hypertension who presented to the ED for high blood pressure. She mentions measuring her blood pressure yesterday as a regular check and her systolic blood pressure was in 180s and it increased to 200s a little while later. She reported her dose of lisinopril and her blood pressure did come down temporarily but it went back up again. At this point the patient started getting anxious. She experienced a stroke in June 2023 from which she has some residual weakness in her left leg. She states that she has reduced sodium intake in her diet since the stroke. She also complains of a mild headache. She denies any chest pain, palpitations, shortness of breath, dizziness, slurring of speech, vision difficulties, falls , abdominal pain, nausea, vomiting, fever, chills, dysuria. ED documentation reviewed. EKG shows sinus rhythm, rate of 76 bpm, QTc 428 ms. UA shows trace ketones. Progress note 01/29/2024atient seen and examined at bedside. Overnight patient states she felt weak while coming to the unit, and was assisted to the ground to rest briefly before returning to stand and walk back to the room. Patient continues to have headache and requested Tylenol. No other complaints at this time. Review of systems: Pertinent positives and negatives as discussed in HPI, a complete review of systems was performed and all other systems are negative. Physical examination: Vitals: Reviewed General: non toxic, no distress, appears at stated age, normal BMI Derm: no unusual rashes/lesions, warm Head: atraumatic, normocephalic, symmetric Eyes: EOMI, anicteric sclera ENT: Nose and ears atraumatic Mouth: no lip lesion, mucus membranes moist Cardiovascular: S1S2 reg, no murmur, no edema Lungs: CTA bilateral, no rhonchi, no rales, no accessory muscle use Abdominal: soft, nontender to palpation, no guarding Ext: muscle strength 5 out of 5 in all 4 extremities grossly, no gross muscle atrophy, no contractures, Neuro: CN II-XI grossly intact, no gross focal neuro deficits Psych: Alert, oriented, appropriate affect Labs reviewed today; WBC 6.33, hemoglobin 12.1, platelets 262, sodium 130, potassium 4.7, chloride 95, bicarb 22.3, anion gap 12.7, BUN 10.3, creatinine 0.7, glucose 105, serum osmolality 260, urine osmolality 155, urine sodium 55, urine potassium 5.2, urine calcium 4.5 Assessment/Plan: Patient is a 58-year-old female with hypertension presented to the ED for high blood pressure which did not respond to antihypertensives. Case discussed with ED provider and admission accepted for hypertensive urgency. #. Hypertensive urgency Blood pressure admission 194/138, improving S/p hydralazine 10 mg, labetalol 20 mg in the ED Clonidine 0.2 mg p.o. every 8 hours as needed for SBP >180 Increase home meds lisinopril 10 mg p.o. daily, add amlodipine 5 mg daily Telemetry monitoring #. Euvolemic Hyponatremia, possibly decreased solute intake Initial sodium 123 => 130 Initial bun 11 cr 0.57 unremarkable Urine studies serum osmolality 260, urine osmolality 155, urine sodium 55, urine potassium 5.2, urine calcium 4.5 Patient mentions of reducing sodium intake since stroke in July 19 Monitor BMP #. History of stroke in June 2023 Continue aspirin 81 mg p.o. daily and ticagrelor 90 mg p.o. twice daily #. History of hypothyroidism Continue levothyroxine 44 mcg p.o. on Friday and 88 mcg p.o. on Friday to Friday Check TSH, T4 #. History of anxiety Continue fluoxetine 40 mg p.o. daily and alprazolam 0.25 to 0.5 mg p.o. daily #. Hyperlipidemia Patient on evolocumab 140 mg/mL SQ q. 14 days Check lipid panel #. Nausea and vomiting Continue Zofran 4 mg IV every 8 hours as needed F: P.o. E: Replete as required N: Regular diet A: Ambulatory DVT prophylaxis: Lovenox 40 mg SQ daily CODE STATUS: Full code Discussed with: Patient Anticipated discharge place: Home, likely tomorrow I have seen and evaluated the patient today. Discussed with the resident and agree with the residents finding and plan as documented in the resident's note. Changes highlighted in blue font. Objective - Vital Signs Vital signs: Vital Signs Temp 98.8 F 01/29/24 11:36 Pulse 77 01/29/24 11:36 Resp 15 01/29/24 11:36 BP 174/83 01/29/24 11:36 Pulse Ox 97 01/29/24 11:36 FiO2 Intake & Output 01/28/24 01/29/24 01/29/24 18:59 06:59 18:59 Intake Total 480 240 Balance 480 240 Weight 68.039 kg 68.039 kg Intake: Intake, IV Titration 480 Amount Sodium Chloride 0.9% 1, 480 000 ml @ 75 mls/hr IV . [id number] Rx#:[id number] Oral 240 Other: Voiding Method Toilet Bedside Commode # Voids 1 - Labs CBC & Chem 7: 01/29/24 05:59 01/29/24 05:59 Labs: Abnormal Lab Results - Last 24 Hours (Table) 01/28/24 01/28/24 01/28/24 Range/Units 16:08 16:24 20:10 RBC (4.10-5.20) X 10*6/uL Hct (37.2-46.3) % MPV (9.5-12.2) FL Eosinophils # (0.04-0.35) X 10*3/uL Sodium 123 L (137-145) mmol/L Chloride 92 L (98-107) mmol/L Anion Gap (4.00-12.00) mmol/L Osmolality (275-295) mOsm/kg Total Bilirubin 1.4 H (0.2-1.3) mg/dL AST 37 H (14-36) U/L Total Protein (6.2-8.2) g/dL Albumin 5.1 H (3.5-5.0) g/dL Urine Ketones Trace H (Negative) Urine Osmolality 155 L (400-1100) mOsm/kg Ur Random Potassium (25.0-125.0) mmol/L Ur Random Calcium (100.0-300.0) mg/dL 01/28/24 01/28/24 01/28/24 Range/Units 20:10 20:10 22:48 RBC (4.10-5.20) X 10*6/uL Hct (37.2-46.3) % MPV (9.5-12.2) FL Eosinophils # (0.04-0.35) X 10*3/uL Sodium (137-145) mmol/L Chloride (98-107) mmol/L Anion Gap (4.00-12.00) mmol/L Osmolality 260 L (275-295) mOsm/kg Total Bilirubin (0.2-1.3) mg/dL AST (14-36) U/L Total Protein (6.2-8.2) g/dL Albumin (3.5-5.0) g/dL Urine Ketones (Negative) Urine Osmolality (400-1100) mOsm/kg Ur Random Potassium 5.2 L (25.0-125.0) mmol/L Ur Random Calcium 4.5 L (100.0-300.0) mg/dL 01/29/24 01/29/24 Range/Units 05:59 05:59 RBC 4.06 L (4.10-5.20) X 10*6/uL Hct 35.9 L (37.2-46.3) % MPV 8.8 L (9.5-12.2) FL Eosinophils # 0.02 L (0.04-0.35) X 10*3/uL Sodium 130 L (137-145) mmol/L Chloride 95 L (98-107) mmol/L Anion Gap 12.70 H (4.00-12.00) mmol/L Osmolality (275-295) mOsm/kg Total Bilirubin (0.2-1.3) mg/dL AST (14-36) U/L Total Protein 6.0 L (6.2-8.2) g/dL Albumin (3.5-5.0) g/dL Urine Ketones (Negative) Urine Osmolality (400-1100) mOsm/kg Ur Random Potassium (25.0-125.0) mmol/L Ur Random Calcium (100.0-300.0) mg/dL
[2024-01-30 06:59] LABS: Glucose,Whole Blood 149 mg/dL (70-110)
[2024-01-30 07:49] VITALS: BP 142/92; PULSE 72; RESP 16; TEMP 98.1
[2024-01-30 08:45] LABS: BUN/Creat Ratio 13.88 Ratio (12.00-20.00); Blood Urea Nitrogen 11.1 mg/dL (9.0-27.0); Chloride 100 mmol/L (96-109); Glucose 93 mg/dL (70-110); Sodium 135 mmol/L (135-145)
[2024-01-30 08:46] LABS: Calcium 9.5 mg/dL (8.7-10.3)
[2024-01-30 08:49] LABS: HCT 38.5 % (37.2-46.3); HGB 12.9 g/dL (12.0-15.0); MCH 29.1 pg (27.0-32.0); MCHC 33.5 g/dL (32.0-37.0); MCV 86.9 FL (80.0-97.0); Mean Platelet Volume 8.7 FL (9.5-12.2); NRBC Per 100 WBC 0 X 10*3/uL (0.00-0.01); Platelet Count 273 X 10*3/uL (140-440); RBC 4.43 X 10*6/uL (4.10-5.20); RDW 12.6 % (11.5-14.5); WBC 5.62 X 10*3/uL (4.50-10.00)
[2024-01-30] MEDS: lisinopriL 10 MG TAB PO SCH (09:01)
--- NOTE | 2024-01-30 14:14 | P.DS ---
Providers Date of admission: 01/28/24 18:25 Expected date of discharge: 01/30/24 Attending physician: Mc Pichardo MD Primary care physician: Audie Farris Hospital Course: Discharge diagnoses; #. Hypertensive urgency #. Euvolemic Hyponatremia, decreased solute intake #. History of stroke in June 2023 #. History of hypothyroidism #. History of anxiety #. Hyperlipidemia Hospital course; Patient is a 58-year-old female with hypertension who presented to the ED for high blood pressure. She mentions measuring her blood pressure yesterday as a regular check and her systolic blood pressure was in 180s and it increased to 200s a little while later. She reported her dose of lisinopril and her blood pressure did come down temporarily but it went back up again. At this point the patient started getting anxious. She experienced a stroke in June 2023 from which she has some residual weakness in her left leg. She states that she has reduced sodium intake in her diet since the stroke. She also complains of a mild headache. She denies any chest pain, palpitations, shortness of breath, dizziness, slurring of speech, vision difficulties, falls , abdominal pain, nausea, vomiting, fever, chills, dysuria. ED documentation reviewed. EKG shows sinus rhythm, rate of 76 bpm, QTc 428 ms. UA shows trace ketones. During hospital stay patient was treated for hypertensive urgency she was given hydralazine 10 mg and subsequently was given labetalol 20 mg and her blood pressure was found to be 85/51, and began to improve. After, her home lisinopril was increased to 10 mg daily, and amlodipine 5 mg daily was also added which improved her blood pressure. Also, she was treated for euvolemic hyponatremia likely due to decreased solute intake or increased oral hydration. During her stay her hyponatremia resolved. Patient is discharged to home in stable condition. She is discharged on new lisinopril 10 mg daily, amlodipine 5 mg daily. She is to follow-up with her PCP Dr. Farris. Pt counseled to limit total water intake to 2L total to avoid over hydration. Physical examination: Vitals: Reviewed General: non toxic, no distress, appears at stated age, normal BMI Derm: no unusual rashes/lesions, warm Head: atraumatic, normocephalic, symmetric Eyes: EOMI, anicteric sclera ENT: Nose and ears atraumatic Mouth: no lip lesion, mucus membranes moist Cardiovascular: S1S2 reg, no murmur, no edema Lungs: CTA bilateral, no rhonchi, no rales, no accessory muscle use Abdominal: soft, nontender to palpation, no guarding Ext: muscle strength 5 out of 5 in all 4 extremities grossly, no gross muscle atrophy, no contractures, Neuro: CN II-XI grossly intact, no gross focal neuro deficits Psych: Alert, oriented, appropriate affect Dictation was produced using Hello [employer] dictation software. please excuse any grammatical, word or spelling errors. Patient Condition at Discharge: Stable Plan - Discharge Summary Discharge Rx Participant: No New Discharge Prescriptions: New amLODIPine [Norvasc] 5 mg PO DAILY #60 tab lisinopriL [Zestril] 10 mg PO DAILY #60 tab Continue Multivitamins, Thera [Multivitamin (formulary)] 1 tab PO DAILY@1200 Gilbert-3 Fatty Acids/Fish Oil [Fish Oil 1,000 mg Softgel] 1 cap PO DAILY@0900 Aspirin EC [Ecotrin Low Dose] 81 mg PO DAILY@0900 Levothyroxine Sodium [Synthroid] 88 mcg PO MOTUWETHFRSA@0500 ALPRAZolam [Xanax] 0.25 - 0.5 mg PO DAILY PRN PRN Reason: Anxiety EPINEPHrine (Auto Inject) [Epipen] 0.3 mg IM ONCE PRN PRN Reason: Anaphylaxis Tretinoin [Tretinoin 0.025%] 1 applic TOPICAL HS Mupirocin 2% Oint [Bactroban 2% Oint] 1 applic TOPICAL DIRECTED Cholecalciferol [Vitamin D3 (125 Mcg = 5000 Iu)] 125 mcg PO DAILY@1200 Ticagrelor [Brilinta] 90 mg PO BID-W/MEALS@09, Levothyroxine Sodium [Synthroid] 44 mcg PO BOWLES@0500 FLUoxetine HCL 40 mg PO DAILY@0900 Evolocumab [Repatha Syringe] 140 mg SQ Q14D Discontinued lisinopriL [Zestril] 5 mg PO DAILY@0800 Discharge Medication List Multivitamins, Thera [Multivitamin (formulary)] 1 tab PO DAILY@1200 06/20/19 [History] Gilbert-3 Fatty Acids/Fish Oil [Fish Oil 1,000 mg Softgel] 1 cap PO DAILY@0900 02/23/20 [History] ALPRAZolam [Xanax] 0.25 - 0.5 mg PO DAILY PRN 08/07/23 [History] Aspirin EC [Ecotrin Low Dose] 81 mg PO DAILY@0908/07/23 [History] Levothyroxine Sodium [Synthroid] 44 mcg PO BOWLES@05008/07/23 [History] Levothyroxine Sodium [Synthroid] 88 mcg PO MOTUWETHFRSA@05008/07/23 [History] Ticagrelor [Brilinta] 90 mg PO BID-W/MEALS@08/07/23 [History] Cholecalciferol [Vitamin D3 (125 Mcg = 5000 Iu)] 125 mcg PO DAILY@1200 01/28/24 [History] EPINEPHrine (Auto Inject) [Epipen] 0.3 mg IM ONCE PRN 01/28/24 [History] Evolocumab [Repatha Syringe] 140 mg SQ Q14D 01/28/24 [History] FLUoxetine HCL 40 mg PO DAILY@0901/28/24 [History] Mupirocin 2% Oint [Bactroban 2% Oint] 1 applic TOPICAL DIRECTED 01/28/24 [History] Tretinoin [Tretinoin 0.025%] 1 applic TOPICAL HS 01/28/24 [History] amLODIPine [Norvasc] 5 mg PO DAILY #60 tab 01/30/24 [Rx] lisinopriL [Zestril] 10 mg PO DAILY #60 tab 01/30/24 [Rx] Follow up Appointment(s)/Referral(s): Audie Farris MD [Primary Care Provider] - 1-2 days (The office did not answer when we tried to make an appointment - please call and make follow up appointment.) Patient Instructions/Handouts: Lisinopril (By mouth), Amlodipine (By mouth), Hyponatremia (DC), Hypertensive Crisis (DC) Discharge Disposition: HOME SELF-CARE
[2024-02-01] MEDS ORDERED: LEVOTHYROXINE 88 MCG TAB PO SCH (05:00)
== END 2024-01-30 13:15 | disposition home or self-care (01) | DRG 641 ==
LOC: EC 15:41 → 4SSUR 18:25 → 5NMEDONC 22:27
PROVIDERS: ADMIT Internal Medicine; ATTEND Internal Medicine
DX: E87.1 Hypo-osmolality and hyponatremia (principal); I16.0 Hypertensive urgency; I10 Essential (primary) hypertension; E03.9 Hypothyroidism, unspecified; E78.5 Hyperlipidemia, unspecified; F41.9 Anxiety disorder, unspecified; Z79.02 Long term (current) use of antithrombotics/antiplatelets; Z79.82 Long term (current) use of aspirin; Z79.890 Hormone replacement therapy; Z79.899 Other long term (current) drug therapy; Z86.73 Personal history of transient ischemic attack (TIA), and cerebral infarction without residual deficits; Z87.891 Personal history of nicotine dependence; Z82.49 Family history of ischemic heart disease and other diseases of the circulatory system
CPT/HCPCS: 36415; 80048; 80053; 80061; 81003; 82310; 83735; 83930; 83935; 84100; 84133; 84300; 84443; 85025; 85027; 93005; 96374; 96375; 99285

== ENCOUNTER → 2024-02-24 | Outpatient (CLI) | payer OTHER ==
--- NOTE | 2024-02-25 12:37 | MM ---
Reason for Exam: Screening (asymptomatic). Last mammogram was performed 8 year(s) and 10 month(s) ago. Patient History: Menarche at age 11. First Full-Term at age 28. Late child-bearing (after 30). Postmenopausal. Risk Values: Kourtney 5 year model risk: 2.0%. NCI Lifetime model risk: 10.0%. Prior Study Comparison: 07/13/2007 Bilateral Screening Mammogram, [facility]. 08/17/2010 Bilateral Screening Mammogram, [facility]. 04/07/2015 Bilateral Screening Mammogram, [facility]. Tissue Density: There are scattered areas of fibroglandular density. Findings: Analyzed By CAD. New vague focal asymmetry approximately 3:00 right breast anterior depth. Otherwise, no significant change. Overall Assessment: Incomplete: need additional imaging evaluation, BI-RAD 0 Management: Special View Mammogram of the right breast. Diagnostic Breast Ultrasound of the right breast. When the patient returns, correlate for any bruising, injury, or blood thinner use. [facility] will attempt to contact patient to return for supplemental views and ultrasound if indicated. [facility], , 02/25/2024 12:33 PM. Electronically signed and approved by: Debbi Servin M.D. Radiologist
== END | disposition home or self-care (01) ==
LOC: RADMAMWWP 13:55
PROVIDERS: ATTEND Family Medicine
CPT/HCPCS: 77063; 77067

== ENCOUNTER → 2024-02-26 | Outpatient (CLI) | payer OTHER ==
--- NOTE | 2024-02-26 10:32 | MM ---
Reason for Exam: Clinical finding. Last screening mammogram was performed less than 1 month ago. Patient History: Menarche at age 11. First Full-Term at age 28. Late child-bearing (after 30). Postmenopausal. Patient has history of breast feeding. Risk Values: Kourtney 5 year model risk: 2.0%. NCI Lifetime model risk: 10.0%. Prior Study Comparison: 07/03/2004 Screening Mammogram, [facility]. 06/30/2006 Bilateral Screening Mammogram, [facility]. 07/13/2007 Bilateral Screening Mammogram, [facility]. 08/17/2010 Bilateral Screening Mammogram, [facility]. 04/07/2015 Bilateral Screening Mammogram, [facility]. 02/24/2024 Bilateral MG 3D screening mammo w/cad, [facility]. Tissue Density: Right: There are scattered areas of fibroglandular density. Findings: Analyzed By CAD. The patient had a previous cutaneous lesion and secondary scar along the upper inner quadrant. A mole marker is placed here but the breast and area of focal asymmetry is located more anterior to this region. There is persistence of the 9 mm poorly defined focal asymmetry. On the true lateral, this is located in the upper inner quadrant. Becomes much less apparent on the spot 3-D MLO and 3-D lateral views. Further ultrasound evaluation recommended. Patient is on blood thinners. Overall Assessment: Incomplete: need additional imaging evaluation, BI-RAD 0 Management: Diagnostic Breast Ultrasound of the right breast. [facility], , 02/26/2024 10:30 AM. Electronically signed and approved by: Debbi Servin M.D. Radiologist
--- NOTE | 2024-02-26 11:15 | USB ---
Reason for Exam: Additional evaluation requested from abnormal screening. Patient History: Menarche at age 11. First Full-Term at age 28. Late child-bearing (after 30). Postmenopausal. Patient has history of breast feeding. Risk Values: Kourtney 5 year model risk: 2.0%. NCI Lifetime model risk: 10.0%. Technique: Method: Targeted. Doppler: Color. Patient Position: Supine. Prior Study Comparison: 08/17/2010 Bilateral Screening Mammogram, [facility]. 04/07/2015 Bilateral Screening Mammogram, [facility]. 02/24/2024 Bilateral MG 3D screening mammo w/cad, [facility]. Findings: The upper inner quadrant of the right breast, the axilla of the right breast and the retroareolar of the right breast were scanned. Targeted ultrasound right breast 1:00 position, 5 cm from the nipple. Additional scanning of the subareolar region and axilla. At 1:00, there is a lobulated echogenic area measuring 1.4 x 1.2 x 0.7 cm, possible small hematoma as initially suspected. Close follow-up to ensure that this area resolves. No other solid or cystic lesion or axillary lymphadenopathy. Overall Assessment: Probably benign, BI-RAD 3 Management: Diagnostic Mammogram of the right breast in 2 months. Diagnostic Breast Ultrasound of the right breast in 2 months. To ensure that the questioned lesion 1:00 position corresponds to a small hematoma in a patient on blood thinners. The patient reports bruising elsewhere on the body. No bruising visualized on the breast surface at the time of the exam. A clinical breast exam by your physician is recommended on an annual basis and results should be correlated with mammographic findings. This exam should not preclude additional follow-up of suspicious palpable abnormalities. Results were given to the patient verbally at the time of exam. [facility], , 02/26/2024 11:12 AM. Electronically signed and approved by: Debbi Servin M.D. Radiologist
== END | disposition home or self-care (01) ==
LOC: RADMAMWWP 09:46
PROVIDERS: ATTEND Family Medicine
CPT/HCPCS: 77061; 77065

== ENCOUNTER → 2024-04-29 | Outpatient (CLI) | payer OTHER ==
--- NOTE | 2024-04-29 16:11 | XR ---
EXAMINATION TYPE: XR cervical spine limited DATE OF EXAM: 04/29/2024 12:04 PM COMPARISON: 08/21/2023 CLINICAL INDICATION: Female, 59 years old with history of M47.12 OTHER SPONDYLOSIS WITH MYELOPATHY, C ERVICAL, pain TECHNIQUE: 4 view(s) obtained. FINDINGS: Prevertebral space is normal. Anterior cervical fusion is present C3-C5 and second at C6-7. Posterior spinal lamellar line is intact. Disc spacers are present through the cervical spine. The odontoid is nondiagnostic due to overlying occiput. Swimmer's view is obtained. Note is made of dense carotid artery calcifications. IMPRESSION: 1. Postsurgical anterior cervical fusion [facility], , 04/29/2024 4:09 PM
== END | disposition home or self-care (01) ==
LOC: RADXRMAIN 11:40
PROVIDERS: ATTEND Physician Assistant Surgical
DX: M47.12 Other spondylosis with myelopathy, cervical region (principal); Z98.1 Arthrodesis status
CPT/HCPCS: 72040

== ENCOUNTER → 2024-05-31 | Outpatient (CLI) | payer OTHER ==
--- NOTE | 2024-05-31 12:52 | MM ---
Reason for Exam: Follow-up at short interval from prior study. Last screening mammogram was performed 4 month(s) ago. Patient History: Menarche at age 11. First Full-Term at age 28. Late child-bearing (after 30). Postmenopausal. Patient has history of breast feeding. Risk Values: Kourtney 5 year model risk: 2.0%. NCI Lifetime model risk: 9.7%. Prior Study Comparison: 04/07/2015 Bilateral Screening Mammogram, [facility]. 02/24/2024 Bilateral MG 3D screening mammo w/cad, [facility]. 02/26/2024 Right MG 3D work up w/cad RT, [facility]. Tissue Density: Right: There are scattered areas of fibroglandular density. Findings: Analyzed By CAD. No new or persistent focal mass or worrisome cluster of microcalcification in the right breast. Overall Assessment: Negative, BI-RAD 1 Management: Screening Mammogram of both breasts in 9 months. Return to routine follow-up. Results were given to the patient verbally at the time of exam. Patient should continue monthly self-breast exams. A clinical breast exam by your physician is recommended on an annual basis. This exam should not preclude additional follow-up of suspicious palpable abnormalities. Note on Kourtney scores and lifetime risk: 1. A Kourtney score greater than 3% is considered moderate risk. If this is the case, consider specialist referral to assess eligibility for a risk reducing agent. 2. If overall lifetime risk for the development of breast cancer is 20% or higher, the patient may qualify for future screening with alternating mammogram and breast MRI. [facility], , 05/31/2024 12:49 PM. Electronically signed and approved by: Viktor Haynes M.D.
--- NOTE | 2024-05-31 13:26 | USB ---
Reason for Exam: Follow-up at short interval from prior study. Patient History: Menarche at age 11. First Full-Term at age 28. Late child-bearing (after 28). Postmenopausal. Patient has history of breast feeding. Risk Values: Kourtney 5 year model risk: 2.0%. NCI Lifetime model risk: 9.7%. Technique: Method: Targeted. Prior Study Comparison: 04/07/2015 Bilateral Screening Mammogram, [facility]. 02/24/2024 Bilateral MG 3D screening mammo w/cad, [facility]. 02/26/2024 Right MG 3D work up w/cad RT, [facility]. Findings: The upper section of the breast of the right breast, the axilla of the right breast and the retroareolar of the right breast were scanned. Ultrasound today shows no worrisome solid or cystic mass or abnormal fluid collection at the 1:00 position. Benign-appearing right axillary lymph node is redemonstrated. Subareolar region shows no suspicious abnormality. Overall Assessment: Negative, BI-RAD 1 Management: Screening Mammogram of both breasts in 9 months. Return to routine follow-up. A clinical breast exam by your physician is recommended on an annual basis and results should be correlated with mammographic findings. This exam should not preclude additional follow-up of suspicious palpable abnormalities. Results were given to the patient verbally at the time of exam. [facility], , 05/31/2024 1:23 PM. Electronically signed and approved by: Viktor Haynes M.D.
== END | disposition home or self-care (01) ==
LOC: RADMAMWWP 12:12
PROVIDERS: ATTEND Family Medicine
DX: N60.11 Diffuse cystic mastopathy of right breast (principal); R92.323 Mammographic fibroglandular density, bilateral breasts; Z78.0 Asymptomatic menopausal state
CPT/HCPCS: 77061; 77065

== ENCOUNTER 2024-06-29 10:05 | Inpatient (IN) | payer OTHER ==
[2024-06-29 11:07] LABS: Basophils % (A) 0 %; Eosinophils % (A) 0 %; HCT 44.7 % (34.0-46.0); HGB 14.3 gm/dL (11.4-16.0); Lymphocytes # (A) 1.2 k/uL (1.0-4.8); Lymphocytes % (A) 11 %; MCV 87.3 fL (80.0-100.0); Mean Platelet Volume 6.3; Monocytes # (A) 0.4 k/uL (0-1.0); Monocytes % (A) 4 %; Neutrophils # (A) 9.1 k/uL (1.3-7.7); Neutrophils % (A) 83 %; Platelet Count 273 k/uL (150-450); RBC 5.12 m/uL (3.80-5.40); RDW 12.4 % (11.5-15.5); WBC 10.9 k/uL (3.8-10.6)
--- NOTE | 2024-06-29 11:09 | XR ---
EXAMINATION TYPE: XR chest 2V DATE OF EXAM: 06/29/2024 11:03 AM COMPARISON: Chest radiographs from 08/07/2023 TECHNIQUE: XR chest 2V Frontal and lateral views of the chest. CLINICAL INDICATION:Female, 59 years old with history of Chest Pain; FINDINGS: Lungs/Pleura: There is no evidence of pleural effusion, focal consolidation, or pneumothorax. Pulmonary vascularity: Unremarkable. Heart/mediastinum: Cardiomediastinal silhouette is unremarkable. Musculoskeletal: No acute osseous pathology. Anterior cervical fusion hardware. Multilevel degenerati ve disc disease. IMPRESSION: No acute cardiopulmonary disease/process. [facility], , 06/29/2024 11:07 AM
[2024-06-29 11:23] LABS: ALT 19 U/L (4-34); AST 29 U/L (14-36); African American GFR (CKD) >90 (>60 ml/min/1.73 sqM); Albumin 4.9 g/dL (3.5-5.0); Alkaline Phosphatase 100 U/L (38-126); Anion Gap 8 mmol/L; Blood Urea Nitrogen 14 mg/dL (7-17); Calcium 9.7 mg/dL (8.4-10.2); Carbon Dioxide 29 mmol/L (22-30); Chloride 87 mmol/L (98-107); Glucose 100 mg/dL (74-99); Lipase 94 U/L (23-300); Magnesium 1.7 mg/dL (1.6-2.3); Non-African American GFR(CKD) >90 (>60 ml/min/1.73 sqM); Potassium 4.9 mmol/L (3.5-5.1); Sodium 124 mmol/L (137-145); Total Bilirubin 0.8 mg/dL (0.2-1.3); Total Protein 7.6 g/dL (6.3-8.2)
[2024-06-29 11:32] LABS: INR 0.9 (<1.2); Partial Thromboplastin Time 25.2 sec (22.0-30.0)
[2024-06-29] MEDS ORDERED: ONDANSETRON 4 MG/2 ML VIAL IVP PRN (13:16)
[2024-06-29] MEDS ORDERED: CALCIUM CARBONATE 500 MG CHEWABLE PO PRN (13:16)
[2024-06-29] MEDS ORDERED: NALOXONE 0.4 MG/ML 1 ML VIAL IV PRN (13:16)
--- NOTE | 2024-06-29 13:29 | ED ---
Chest Pain HPI - General Chief Complaint: Chest Pain Stated Complaint: abn labs Time Seen by Provider: 06/29/24 10:29 Source: patient Mode of arrival: ambulatory Limitations: no limitations - History of Present Illness Initial Comments: 59-year-old female with past medical history of ischemic CVA, hypertension who presents to the emergency department with complaint of chest pressure and high blood pressure. States that over the past couple of days she has noted that her blood pressure has been running on the high end. She used to take amlodipine and lisinopril for her high blood pressure. States that over the past couple months she is only had to take lisinopril as she has had improvement in her blood pressure. She did take a dose of amlodipine last night and today to try and help alleviate her high blood pressure however she continues to remain around the 200s. Patient is concerned because of her history of ischemic stroke that happened 1 year ago. She has been taking all of her other medications as directed. No history of cardiac disease. No shortness of breath. Denies fevers chills or cough. No numbness, tingling or weakness in her extremities. No speech changes. Does have a pain in the intrascapular region as well but does not feel like the 2 pains communicate. No other alleviating, precipitating or modifying factors - Related Data Home Medications Medication Instructions Recorded Confirmed Multivitamins, Thera [Multivitamin 1 tab PO DAILY@1200 06/20/19 06/29/24 (formulary)] Levothyroxine Sodium [Synthroid] 44 mcg PO BOWLES 08/07/23 06/29/24 Levothyroxine Sodium [Synthroid] 88 mcg PO MOTUWETHFRSA 08/07/23 06/29/24 Ticagrelor [Brilinta] 90 mg PO BID-W/MEALS@08/07/23 06/29/24 Cholecalciferol [Vitamin D3 (125 250 mcg PO DAILY@1200 01/28/24 06/29/24 Mcg = 5000 Iu)] EPINEPHrine (Auto Inject) [Epipen] 0.3 mg IM ONCE PRN 01/28/24 06/29/24 Evolocumab [Repatha Syringe] 140 mg SQ Q14D 01/28/24 06/29/24 FLUoxetine HCL 40 mg PO DAILY@0900 01/28/24 06/29/24 Cyanocobalamin (Vitamin B-12) 1,000 mcg PO DAILY@0900 06/29/24 06/29/24 [Vitamin B-12] L.acidoph,Paracasei, B.lactis 1 cap PO DAILY@0900 06/29/24 06/29/24 [Probiotic] Magnesium Glycinate 350mg 350 mg PO DAILY@0900 06/29/24 06/29/24 Ubidecarenone [Coenzyme Q10] 200 mg PO DAILY@1200 06/29/24 06/29/24 amLODIPine [Norvasc] 5 mg PO DAILY PRN 06/29/24 06/29/24 methocarbamoL [Robaxin-750] 750 mg PO TID PRN 06/29/24 06/29/24 Previous Rx's Medication Instructions Recorded lisinopriL [Zestril] 10 mg PO DAILY #60 tab 01/30/24 Allergies Allergy/AdvReac Type Severity Reaction Status Date / Time avocado Allergy Rash/Hives Verified 06/29/24 13:34 banana Allergy Rash/Hives Verified 06/29/24 13:34 egg Allergy Rash/Hives Verified 06/29/24 13:34 ezetimibe Allergy Rash/Hives Verified 06/29/24 13:34 kiwi Allergy Rash/Hives Verified 06/29/24 13:34 Lactobacillus rhamnosus GG Allergy Rash/Hives Verified 06/29/24 13:34 [From Culturelle] polyethylene glycol 3350 Allergy Rash/Hives Verified 06/29/24 13:34 [From Miralax] [id number] Reductase Allergy Rash/Hives Verified 06/29/24 13:34 Inhibitor azithromycin [From Zithromax] AdvReac Nausea & Verified 06/29/24 13:34 Vomiting cyclobenzaprine AdvReac lethargic, Verified 06/29/24 13:34 [From Flexeril] weakness hydrochlorothiazide AdvReac depleted Verified 06/29/24 13:34 [From Dyazide] electrolytes, syncope triamterene [From Dyazide] AdvReac depleted Verified 06/29/24 13:34 electrolytes, syncope Review of Systems ROS Statement: Those systems with pertinent positive or pertinent negative responses have been documented in the HPI. ROS Other: All systems not noted in ROS Statement are negative. Past Medical History Past Medical History: CVA/TIA, Hypertension, Thyroid Disorder History of Any Multi-Drug Resistant Organisms: None Reported Past Surgical History: Orthopedic Surgery Additional Past Surgical History / Comment(s): cervical fusion Past Anesthesia/Blood Transfusion Reactions: No Reported Reaction Past Psychological History: No Psychological Hx Reported Smoking Status: Never smoker Past Alcohol Use History: Occasional Past Drug Use History: None Reported - Past Family History Mother Brother(s) History Unknown: Yes Family Medical History: Hypertension General Exam Limitations: no limitations General appearance: alert, in no apparent distress Head exam: Present: atraumatic, normocephalic, normal inspection Eye exam: Present: normal appearance, PERRL, EOMI. Absent: scleral icterus, conjunctival injection, periorbital swelling ENT exam: Present: normal exam, mucous membranes moist Neck exam: Present: normal inspection. Absent: tenderness, meningismus, lymphadenopathy Respiratory exam: Present: normal lung sounds bilaterally. Absent: respiratory distress, wheezes, rales, rhonchi, stridor Cardiovascular Exam: Present: regular rate, normal rhythm, normal heart sounds. Absent: systolic murmur, diastolic murmur, rubs, gallop, clicks GI/Abdominal exam: Present: soft, normal bowel sounds. Absent: distended, tenderness, guarding, rebound, rigid Extremities exam: Present: normal inspection, full ROM, normal capillary refill. Absent: tenderness, pedal edema, joint swelling, calf tenderness Back exam: Present: normal inspection Neurological exam: Present: alert, oriented X3, CN II-XII intact Psychiatric exam: Present: normal affect, normal mood Skin exam: Present: warm, dry, intact, normal color. Absent: rash Course Vital Signs 06/29/24 06/29/24 06/29/24 10:07 10:44 10:48 Temperature 98 F 98 F Pulse Rate 77 65 Pulse Rate [ 78 Apical] Pulse Rate [ Catalyst Supervisor ] Respiratory 20 18 Rate Blood Pressure 193/112 212/113 Blood Pressure [Right Arm] O2 Sat by Pulse 99 100 Oximetry 06/29/24 06/29/24 06/30/24 11:54 17:32 00:00 Temperature 98 F Pulse Rate 69 60 Pulse Rate [ Apical] Pulse Rate [ 59 L Catalyst Supervisor ] Respiratory 16 16 15 Rate Blood Pressure 182/101 142/90 Blood Pressure 129/82 [Right Arm] O2 Sat by Pulse 100 95 96 Oximetry 06/30/24 06/30/2406/30/25 02:59 04:09 07:30 Temperature Pulse Rate 66 Pulse Rate [ Apical] Pulse Rate [ 59 L 61 Catalyst Supervisor ] Respiratory 12 9 L 18 Rate Blood Pressure 147/99 Blood Pressure 123/79 126/76 [Right Arm] O2 Sat by Pulse 95 97 97 Oximetry 06/30/24 06/30/24 10:50 12:30 Temperature 98.9 F Pulse Rate 78 67 Pulse Rate [ Apical] Pulse Rate [ Catalyst Supervisor ] Respiratory 18 16 Rate Blood Pressure 134/95 138/81 Blood Pressure [Right Arm] O2 Sat by Pulse 100 97 Oximetry Chest Pain MDM - MDM Was pt. sent in by a medical professional or institution (, PA, MAINTENANCE INSTRUCTOR, urgent care, hospital, or [facility]...) When possible be specific @ -No Did you speak to anyone other than the patient for history (EMS, parent, family, police, friend...)? What history was obtained from this source @ -No Did you review nursing and triage notes (agree or disagree)? Why? @ -I reviewed and agree with nursing and triage notes Were old charts reviewed (outside hosp., previous admission, EMS record, old EKG, old radiological studies, urgent care reports/EKG's, [facility] records)? Report findings @ -No old charts were reviewed Differential Diagnosis (chest pain, altered mental status, abdominal pain women, abdominal pain men, vaginal bleeding, weakness, fever, dyspnea, syncope, headache, dizziness, GI bleed, back pain, seizure, CVA, palpatations, mental health, musculoskeletal)? @ -Differential Chest Pain: Stable Angina, Unstable Angina, STEMI, NSTEMI Aortic Dissection, Pneumothorax, Musculoskeletal, Esophageal Spasm GERD, Cholecystitis, Pancreatitis, Zoster, this is not meant to be an all-inclusive list. EKG interpreted by me (3pts min.). @ -Yes and demonstrates sinus rhythm with a rate of 71. CO interval 161. QRS 89. QTc of 419. No acute ST segment elevations or depressions X-rays interpreted by me (1pt min.). @ -Yes which demonstrates no acute process CT interpreted by me (1pt min.). @ -None done U/S interpreted by me (1pt. min.). @ -None done What testing was considered but not performed or refused? (CT, X-rays, U/S, labs)? Why? @ -None What meds were considered but not given or refused? Why? @ -None Did you discuss the management of the patient with other professionals (professionals i.e. , PA, MAINTENANCE INSTRUCTOR, lab, RT, psych nurse, outreach and education social worker, marketing senior recruiter, te acher, promotion officer, lining caser)? Give summary @ -Spoke with Dr. Saldana for admission Was smoking cessation discussed for >3mins.? @ -No Was critical care preformed (if so, how long)? @ -No Were there social determinants of health that impacted care today? How? (Homelessness, low income, unemployed, alcoholism, drug addiction, transportation, low edu. Level, literacy, decrease access to med. care, snf, rehab)? @ -No Was there de-escalation of care discussed even if they declined (Discuss DNR or withdrawal of care, Hospice)? DNR status @ -No What co-morbidities impacted this encounter? (DM, HTN, Smoking, COPD, CAD, Cancer, CVA, ARF, Chemo, Hep., AIDS, mental health diagnosis, sleep apnea, morbid obesity)? @ -CVA Was patient admitted / discharged? Hospital course, mention meds given and route, prescriptions, significant lab abnormalities, going to OR and other pertinent info. @ -Upon arrival patient seen and evaluated in bed 31. Thorough history and physical exam was performed. Patient placed on continuous pulse ox and cardiac monitoring. Twelve-lead EKG is obtained. Laboratory studies are drawn and reviewed. Patient does have a chest x-ray performed. Results are discussed with patient. She is hyponatremic. I did recommend admission for her hyponatremia. Patient was agreeable. She was given a 500 cc bolus followed by 100 cc/h. Patient reports that she has significantly reduced her free water intake. I will check another sodium level in [address] nephrology on consult. Patient was agreeable to admission. I spoke with Dr. Saldana Undiagnosed new problem with uncertain prognosis? @ -No Drug Therapy requiring intensive monitoring for toxicity (Heparin, Nitro, Insulin, Cardizem)? @ -No Were any procedures done? @ -No Diagnosis/symptom? @ -acute chest pain, accelerated htn, acute hyponatremia Acute, or Chronic, or Acute on Chronic? @ -Acute Uncomplicated (without systemic symptoms) or Complicated (systemic symptoms)? @ -complicated Side effects of treatment? @ -No Exacerbation, Progression, or Severe Exacerbation? @ -No Poses a threat to life or bodily function? How? (Chest pain, USA, CO, pneumonia, PE, COPD, DKA, ARF, appy, cholecystitis, CVA, Diverticulitis, Homicidal, Suicidal, threat to staff... and all critical care pts) @ -No Disposition Clinical Impression: Hypertension, Hyponatremia, Chest pain Disposition: ADMITTED IP TO THIS [facility] Condition: Stable Is patient prescribed a controlled substance at d/c from ED?: No Time of Disposition: 13:29 Decision to Admit Reason: Admit from EC Decision Date: 06/29/24 Decision Time: 13:29
[2024-06-29] MEDS: SODIUM CHLORIDE 0.9% 1,000 ML IV SCH (13:30)
[2024-06-29] MEDS: SODIUM CHLORIDE 0.9% 500 ML 500 ML IV ONE (13:30)
[2024-06-29] MEDS: TICAGRELOR 90 MG TAB PO SCH (17:32)
[2024-06-29] MEDS ORDERED: methocarbamoL 750 MG TAB PO PRN (18:06)
--- NOTE | 2024-06-29 18:06 | P.HPIM ---
History of Present Illness H&P Date: 06/29/24 Chief Complaint: Chest Pain Past Medical History Past Medical History: CVA/TIA, Hypertension, Thyroid Disorder History of Any Multi-Drug Resistant Organisms: None Reported Past Surgical History: Orthopedic Surgery Additional Past Surgical History / Comment(s): cervical fusion Past Anesthesia/Blood Transfusion Reactions: No Reported Reaction Past Psychological History: No Psychological Hx Reported Smoking Status: Never smoker Past Alcohol Use History: Occasional Past Drug Use History: None Reported - Past Family History Mother Brother(s) History Unknown: Yes Family Medical History: Hypertension Medications and Allergies Home Medications Medication Instructions Recorded Confirmed Type Multivitamins, Thera [Multivitamin 1 tab PO DAILY@1200 06/20/19 06/29/24 History (formulary)] Levothyroxine Sodium [Synthroid] 44 mcg PO BOWLES 08/07/23 06/29/24 History Levothyroxine Sodium [Synthroid] 88 mcg PO MOTUWETHFRSA 08/07/23 06/29/24 History Ticagrelor [Brilinta] 90 mg PO BID-W/MEALS@08/07/23 06/29/24 History Cholecalciferol [Vitamin D3 (125 250 mcg PO DAILY@1200 01/28/24 06/29/24 History Mcg = 5000 Iu)] EPINEPHrine (Auto Inject) [Epipen] 0.3 mg IM ONCE PRN 01/28/24 06/29/24 History Evolocumab [Repatha Syringe] 140 mg SQ Q14D 01/28/24 06/29/24 History FLUoxetine HCL 40 mg PO DAILY@0900 01/28/24 06/29/24 History lisinopriL [Zestril] 10 mg PO DAILY #60 tab 01/30/24 06/29/24 Rx Cyanocobalamin (Vitamin B-12) 1,000 mcg PO DAILY@89906/29/24 06/29/24 History [Vitamin B-12] L.acidoph,Paracasei, B.lactis 1 cap PO DAILY@89906/29/24 06/29/24 History [Probiotic] Magnesium Glycinate 350mg 350 mg PO DAILY@0900 06/29/24 06/29/24 History Ubidecarenone [Coenzyme Q10] 200 mg PO DAILY@1200 06/29/24 06/29/24 History amLODIPine [Norvasc] 5 mg PO DAILY PRN 06/29/24 06/29/24 History methocarbamoL [Robaxin-750] 750 mg PO TID PRN 06/29/24 06/29/24 History Allergies Allergy/AdvReac Type Severity Reaction Status Date / Time avocado Allergy Rash/Hives Verified 06/29/24 13:34 banana Allergy Rash/Hives Verified 06/29/24 13:34 egg Allergy Rash/Hives Verified 06/29/24 13:34 ezetimibe Allergy Rash/Hives Verified 06/29/24 13:34 kiwi Allergy Rash/Hives Verified 06/29/24 13:34 Lactobacillus rhamnosus GG Allergy Rash/Hives Verified 06/29/24 13:34 [From Culturelle] polyethylene glycol 3350 Allergy Rash/Hives Verified 06/29/24 13:34 [From Miralax] [id number] Reductase Allergy Rash/Hives Verified 06/29/24 13:34 Inhibitor azithromycin [From Zithromax] AdvReac Nausea & Verified 06/29/24 13:34 Vomiting cyclobenzaprine AdvReac lethargic, Verified 06/29/24 13:34 [From Flexeril] weakness hydrochlorothiazide AdvReac depleted Verified 06/29/24 13:34 [From Dyazide] electrolytes, syncope triamterene [From Dyazide] AdvReac depleted Verified 06/29/24 13:34 electrolytes, syncope Physical Exam Vitals: Vital Signs Temp Pulse Pulse Resp BP Pulse Ox 06/29/24 11:54 98 F 69 16 182/101 100 06/29/24 10:48 98 F 65 18 212/113 100 06/29/24 10:44 78 06/29/24 10:07 98 F 77 20 193/112 99 Intake and Output 06/28/24 06/29/24 06/29/24 22:59 06:59 14:59 Other: Weight 72.575 kg Results CBC & Chem 7: 06/29/24 10:50 06/29/24 10:50 Labs: Abnormal Lab Results - Last 24 Hours (Table) 06/29/24 06/29/24 Range/Units 10:50 10:50 WBC 10.9 H (3.8-10.6) k/uL Neutrophils # 9.1 H (1.3-7.7) k/uL Sodium 124 L (137-145) mmol/L Chloride 87 L (98-107) mmol/L Creatinine 0.51 L (0.52-1.04) mg/dL Glucose 100 H (74-99) mg/dL Assessment and Plan Assessment: Atypical Chest Pain in female Hypertensive emergency with headache and chest pain Ischemic CVA with no residual deficits Continue to monitor her vital signs closely Will restart her home antihypertensives Hydralazine 10 mg every 6 hours as needed for show assist for systolics greater than 160 At this time troponins are negative, EKG showed normal sinus rhythm no ST/T wave changes Low suspicion for ACS at this time However chest pain continues to worsen, will obtain cardiology consult Echocardiogram ordered as well DVT prophylaxis Cardiac diet Will restart remaining home medications were appropriate
[2024-06-29] MEDS ORDERED: hydrALAZINE HCL 20 MG/ML 1 ML VIAL IVP PRN (18:07)
[2024-06-29] MEDS: HEPARIN SODIUM 1,000 UN/ML (10ML VL) IV ONE (19:11)
[2024-06-29] MEDS: HEPARIN SOD,PORK IN 0.45% NACL 25,000 UNIT in 0.45% NACL 1 250ML.BAG IV SCH (19:16)
[2024-06-29 20:40] LABS: Basophils % (A) 0 %; Eosinophils # (A) 0.1 k/uL (0-0.7); Eosinophils % (A) 2 %; HCT 39.2 % (34.0-46.0); HGB 12.7 gm/dL (11.4-16.0); Lymphocytes # (A) 1.8 k/uL (1.0-4.8); Lymphocytes % (A) 28 %; MCH 28.3 pg (25.0-35.0); MCHC 32.3 g/dL (31.0-37.0); MCV 87.4 fL (80.0-100.0); Mean Platelet Volume 6.8; Monocytes # (A) 0.4 k/uL (0-1.0); Monocytes % (A) 6 %; Neutrophils # (A) 4.1 k/uL (1.3-7.7); Neutrophils % (A) 63 %; Platelet Count 235 k/uL (150-450); RBC 4.48 m/uL (3.80-5.40); RDW 12.6 % (11.5-15.5); WBC 6.5 k/uL (3.8-10.6)
[2024-06-29 21:07] LABS: INR 1.1 (<1.2); Prothrombin Time 11.9 sec (10.0-12.5)
[2024-06-29 21:12] LABS: Partial Thromboplastin Time >200.0 sec (22.0-30.0)
[2024-06-29] MEDS: MELATONIN 3 MG TABLET PO PRN (23:26)
[2024-06-29] MEDS: MAG HYDROX/AL HYDROX/SIMETH 30 ML CUP PO PRN (23:26)
[2024-06-30 04:16] LABS: Basophils % (A) 0 %; Eosinophils # (A) 0.1 k/uL (0-0.7); Eosinophils % (A) 2 %; HCT 40.9 % (34.0-46.0); Lymphocytes # (A) 1.3 k/uL (1.0-4.8); Lymphocytes % (A) 22 %; MCH 27.9 pg (25.0-35.0); MCHC 31.7 g/dL (31.0-37.0); Mean Platelet Volume 6.2; Monocytes # (A) 0.3 k/uL (0-1.0); Monocytes % (A) 5 %; Neutrophils # (A) 4.1 k/uL (1.3-7.7); Neutrophils % (A) 70 %; Platelet Count 231 k/uL (150-450); RBC 4.65 m/uL (3.80-5.40); RDW 12.6 % (11.5-15.5); WBC 5.9 k/uL (3.8-10.6)
[2024-06-30 04:32] LABS: African American GFR (CKD) >90 (>60 ml/min/1.73 sqM); Anion Gap 7 mmol/L; Blood Urea Nitrogen 12 mg/dL (7-17); Calcium 9.1 mg/dL (8.4-10.2); Carbon Dioxide 26 mmol/L (22-30); Chloride 97 mmol/L (98-107); Glucose 93 mg/dL (74-99); Non-African American GFR(CKD) >90 (>60 ml/min/1.73 sqM); Potassium 4.7 mmol/L (3.5-5.1); Sodium 130 mmol/L (137-145)
[2024-06-30 04:48] LABS: INR 0.9 (<1.2); Prothrombin Time 10.1 sec (10.0-12.5)
[2024-06-30] MEDS: HEPARIN SODIUM 1,000 UN/ML (10ML VL) IV PRN (04:59)
[2024-06-30] MEDS: LEVOTHYROXINE 88 MCG TAB PO SCH (05:03)
[2024-06-30] MEDS: lisinopriL 10 MG TAB PO SCH (09:06)
[2024-06-30] MEDS: amLODIPine 5 MG TAB PO SCH (09:06)
[2024-06-30] MEDS: FLUoxetine HCL 20 MG CAP PO SCH (09:06)
[2024-06-30] MEDS: amLODIPine 2.5 MG TAB PO SCH (10:50)
[2024-06-30 11:56] LABS: African American GFR (CKD) >90 (>60 ml/min/1.73 sqM); Anion Gap 8 mmol/L; Blood Urea Nitrogen 11 mg/dL (7-17); Calcium 9.1 mg/dL (8.4-10.2); Carbon Dioxide 24 mmol/L (22-30); Chloride 95 mmol/L (98-107); Glucose 105 mg/dL (74-99); Non-African American GFR(CKD) >90 (>60 ml/min/1.73 sqM); Potassium 4.2 mmol/L (3.5-5.1); Sodium 127 mmol/L (137-145)
--- NOTE | 2024-06-30 12:09 | P.NPCON ---
History of Present Illness - Reason for Consult Consult date: 06/30/24 - History of Present Illness Reason for consult: Acute hyponatremia 59-year-old female with PMH of hypertension, hypothyroidism, ischemic CVA with no obvious residual deficits who presented to the emergency department with complaint of elevated blood pressure and chest pain. States that she been taking her blood pressure at home and it was very high and she had associated chest pain. She has increased stress due to an upcoming trip to [place] that she is preparing to go on. She denies any nausea, vomiting or diarrhea. Her blood pressure was elevated on arrival and she endorses drinking large amounts of water. She has been taking prozac for 1 year now. She denies NSAID use, and has no thiazide diuretics on her home medication list. She has had previous episodes of hyponatremia, January 2024 it corrected from 123 to 130 and she was discharged. She had another previous episode in June 2023 and June 2019. Chest x-ray done in the ED showed no acute cardiopulmonary disease/process EKG done in the ED showed normal sinus rhythm with a rate of 71 Sodium on admission 124, repeat sodium evening of 06/29/24 was 122; sodium this morning 130 and again on repeat this morning 127 after receiving NS 100 cc/h. Past Medical History Past Medical History: CVA/TIA, Hypertension, Thyroid Disorder Additional Past Medical History / Comment(s): Stroke 2023 History of Any Multi-Drug Resistant Organisms: None Reported Past Surgical History: Orthopedic Surgery Additional Past Surgical History / Comment(s): cervical fusion, c3-4herniated disc surgery march Past Anesthesia/Blood Transfusion Reactions: No Reported Reaction Smoking Status: Former smoker - Past Family History Mother Brother(s) History Unknown: Yes Family Medical History: Hypertension Medications and Allergies Home Medications Medication Instructions Recorded Confirmed Type Multivitamins, Thera [Multivitamin 1 tab PO DAILY@1200 06/20/19 06/29/24 History (formulary)] Levothyroxine Sodium [Synthroid] 44 mcg PO BOWLES 08/07/23 06/29/24 History Levothyroxine Sodium [Synthroid] 88 mcg PO MOTUWETHFRSA 08/07/23 06/29/24 Histor y Ticagrelor [Brilinta] 90 mg PO BID-W/MEALS@,18 08/07/23 06/29/24 History Cholecalciferol [Vitamin D3 (125 250 mcg PO DAILY@1200 01/28/24 06/29/24 History Mcg = 5000 Iu)] EPINEPHrine (Auto Inject) [Epipen] 0.3 mg IM ONCE PRN 01/28/24 06/29/24 History Evolocumab [Repatha Syringe] 140 mg SQ Q14D 01/28/24 06/29/24 History FLUoxetine HCL 40 mg PO DAILY@0900 01/28/24 06/29/24 History lisinopriL [Zestril] 10 mg PO DAILY #60 tab 01/30/24 06/29/24 Rx Cyanocobalamin (Vitamin B-12) 1,000 mcg PO DAILY@0900 06/29/24 06/29/24 History [Vitamin B-12] L.acidoph,Paracasei, B.lactis 1 cap PO DAILY@0900 06/29/24 06/29/24 History [Probiotic] Magnesium Glycinate 350mg 350 mg PO DAILY@0900 06/29/24 06/29/24 History Ubidecarenone [Coenzyme Q10] 200 mg PO DAILY@1200 06/29/24 06/29/24 History amLODIPine [Norvasc] 5 mg PO DAILY PRN 06/29/24 06/29/24 History methocarbamoL [Robaxin-750] 750 mg PO TID PRN 06/29/24 06/29/24 History Allergies Allergy/AdvReac Type Severity Reaction Status Date / Time avocado Allergy Rash/Hives Verified 06/29/24 13:34 banana Allergy Rash/Hives Verified 06/29/24 13:34 egg Allergy Rash/Hives Verified 06/29/24 13:34 ezetimibe Allergy Rash/Hives Verified 06/29/24 13:34 kiwi Allergy Rash/Hives Verified 06/29/24 13:34 Lactobacillus rhamnosus GG Allergy Rash/Hives Verified 06/29/24 13:34 [From Culturelle] polyethylene glycol 3350 Allergy Rash/Hives Verified 06/29/24 13:34 [From Miralax] [id number] Reductase Allergy Rash/Hives Verified 06/29/24 13:34 Inhibitor azithromycin [From Zithromax] AdvReac Nausea & Verified 06/29/24 13:34 Vomiting cyclobenzaprine AdvReac lethargic, Verified 06/29/24 13:34 [From Flexeril] weakness hydrochlorothiazide AdvReac depleted Verified 06/29/24 13:34 [From Dyazide] electrolytes, syncope triamterene [From Dyazide] AdvReac depleted Verified 06/29/24 13:34 electrolytes, syncope Physical Exam Vitals: Vital Signs Temp Pulse Pulse Pulse Resp BP BP 06/30/24 07:30 66 18 147/99 06/30/24 04:09 61 9 L 126/76 06/30/24 02:59 59 L 12 123/79 06/30/24 00:00 59 L 15 129/82 06/29/24 17:32 60 16 142/90 06/29/24 11:54 98 F 69 16 182/101 06/29/24 10:48 98 F 65 18 212/113 06/29/24 10:44 78 06/29/24 10:07 98 F 77 20 193/112 Pulse Ox 06/30/24 07:30 97 06/30/24 04:09 97 06/30/24 02:59 95 06/30/24 00:00 96 06/29/24 17:32 95 06/29/24 11:54 100 06/29/24 10:48 100 06/29/24 10:44 06/29/24 10:07 99 Intake and Output 06/29/24 06/30/24 06/30/24 22:59 06:59 14:59 Intake Total 17.708 31.256 Balance 17.708 31.256 Intake: Intake, IV Titration 17.708 31.256 Amount Heparin Sod,Pork in 0.45% 17.708 31.256 NaCl 25,000 unit In 0.45 % NaCl 1 250ml.bag @ 12 UNITS/KG/HR 8.709 mls/hr IV .Q24H [facility] Rx#: [id number] Other: # Voids 1 Weight 72.575 kg Patient is awake, comfortable, no acute distress. 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 TSH was WNL #Atypical chest pain in female #Hypertensive emergency w/ associated headache and chest pain; improved #History of ischemic CVA with no residual deficits #Hypothyroidism; TSH was WNL #Anxiety Plan: -Has been receiving NS 100 cc/h; discontinued fluids as sodium dropped back down to 127 from 130 - -On strict fluid restriction, 1200 cc/day -Sodium on arrival 124, this morning 130 and on repeat this morning 127 -Urine sodium and osmolality ordered, currently pending -Monitor repeat BMP in the a.m. -Advised to maintain adequate protein intake Thank you for this consultation. Will continue to follow the patient during his hospital stay. Agree with resident's findings, assessment and plan.
--- NOTE | 2024-06-30 12:16 | P.CRDCN ---
History of Present Illness History of present illness: HISTORY OF PRESENT ILLNESS: This is a 59-year-old female with a past medical history significant for CVA, carotid disease, hyperlipidemia, and hypertension. Patient follows in the office with Dr. Alexander. We have been asked to see the patient in consultation for elevated troponin. Patient examined at the bedside in the emergency room. Patient presented to the emergency room after noticing her blood pressure was significantly elevated at home for the past couple days. Patient is currently prescribed amlodipine and lisinopril for blood pressure management. She states that she was not taking her amlodipine as she recently had neck surgery and her blood pressure afterwards had been well-controlled. She also reports having some left-sided chest discomfort yesterday that she thinks is anxiety related. She states her chest pain has resolved and has had no further episodes of chest pain. DIAGNOSTICS: - EKG reveals sinus mechanism with no signs of acute ischemia. - Chest xray negative for acute process. - Laboratory data: WBC 5.9. Hemoglobin 13.0. Platelet count 231. Sodium 127. Potassium 4.2. BUN 8. Creatinine 11. Troponin 0.012. 0.030. 0.041. 0.012. - Current home cardiac medications include amlodipine 5 mg daily as needed, Brilinta 90 mg twice a day, lisinopril 10 mg daily, and Repatha 140 mg subcu every 14 days. - Most recent echocardiogram obtained in July 2023 revealing ejection fraction 55 to 60%, trace MR, trace TR - Patient underwent Lexiscan stress test in January 2024 at the cardiology office which was negative for ischemia REVIEW OF SYSTEMS: At the time of my exam: CONSTITUTIONAL: Denies fever or chills. HEENT: Denies blurred vision, vision changes, or eye pain. Denies hemoptysis CARDIOVASCULAR: Denies chest pain. Denies orthopnea. Denies PND. Denies palpitations RESPIRATORY: Denies shortness of breath. GASTROINTESTINAL: Denies abdominal pain. Denies nausea or vomiting. HEMATOLOGIC: Denies bleeding disorders. GENITOURINARY: Denies any blood in urine. SKIN: Denies pruitis. Denies rash. PHYSICAL EXAM: VITAL SIGNS: Reviewed. GENERAL: Well-developed in no acute distress. HEENT: Head is normocephalic. Pupils are equal, round. Sclerae anicteric. Mucous membranes of the mouth are moist. Neck supple. No JVD or thyromegaly LUNGS: Respirations even and unlabored. Lungs essentially clear to auscultation bilaterally. HEART: Regular rate and rhythm. S1 and S2 heard. ABDOMEN: Soft. Nondistended. Nontender. EXTREMITIES: Normal range of motion. No clubbing or cyanosis. Peripheral pulses intact. No lower extremity edema NEUROLOGIC: Awake and alert. Oriented x 3. ASSESSMENT: Hypertensive emergency, improved Chest pain, may be secondary to above, resolved Minimally elevated troponin, likely type II UT secondary to oxygen supply and demand mismatch secondary to uncontrolled hypertension History of hyperlipidemia History of CVA History of carotid disease History of hypertension History of anxiety PLAN: An acute coronary event has been ruled out Obtain 2D echo to assess cardiac structure and function Discontinue IV heparin Resume home cardiac medications including lisinopril, Brilinta, and Repatha Resume amlodipine at a lower dose of 2.5 mg daily (patient was no longer taking this at home) Patient instructed to keep a log of her blood pressures at home Anticipate discharge home this afternoon if patient remains stable Patient to follow-up postdischarge with Dr. Alexander Nurse practitioner note has been reviewed by physician. Signing provider agrees with the documented findings, assessment, and plan of care documented by JAILER as a scribe. Past Medical History Past Medical History: CVA/TIA, Hypertension, Thyroid Disorder Additional Past Medical History / Comment(s): Stroke 2023 History of Any Multi-Drug Resistant Organisms: None Reported Past Surgical History: Orthopedic Surgery Additional Past Surgical History / Comment(s): cervical fusion, c3-4herniated disc surgery march Past Anesthesia/Blood Transfusion Reactions: No Reported Reaction Smoking Status: Former smoker - Past Family History Mother Brother(s) History Unknown: Yes Family Medical History: Hypertension Medications and Allergies Home Medications Medication Instructions Recorded Confirmed Type Multivitamins, Thera [Multivitamin 1 tab PO DAILY@1200 06/20/19 06/29/24 History (formulary)] Levothyroxine Sodium [Synthroid] 44 mcg PO BOWLES 08/07/23 06/29/24 History Levothyroxine Sodium [Synthroid] 88 mcg PO MOTUWETHFRSA 08/07/23 06/29/24 History Ticagrelor [Brilinta] 90 mg PO BID-W/MEALS@,08/07/23 06/29/24 History Cholecalciferol [Vitamin D3 (125 250 mcg PO DAILY@1200 01/28/24 06/29/24 History Mcg = 5000 Iu)] EPINEPHrine (Auto Inject) [Epipen] 0.3 mg IM ONCE PRN 01/28/24 06/29/24 History Evolocumab [Repatha Syringe] 140 mg SQ Q14D 01/28/24 06/29/24 History FLUoxetine HCL 40 mg PO DAILY@0900 01/28/24 06/29/24 History lisinopriL [Zestril] 10 mg PO DAILY #60 tab 01/30/24 06/29/24 Rx Cyanocobalamin (Vitamin B-12) 1,000 mcg PO DAILY@0900 06/29/24 06/29/24 History [Vitamin B-12] L.acidoph,Paracasei, B.lactis 1 cap PO DAILY@0900 06/29/24 06/29/24 History [Probiotic] Magnesium Glycinate 350mg 350 mg PO DAILY@0900 06/29/24 06/29/24 History Ubidecarenone [Coenzyme Q10] 200 mg PO DAILY@1200 06/29/24 06/29/24 History amLODIPine [Norvasc] 5 mg PO DAILY PRN 06/29/24 06/29/24 History methocarbamoL [Robaxin-750] 750 mg PO TID PRN 06/29/24 06/29/24 History Allergies Allergy/AdvReac Type Severity Reaction Status Date / Time avocado Allergy Rash/Hives Verified 06/29/24 13:34 banana Allergy Rash/Hives Verified 06/29/24 13:34 egg Allergy Rash/Hives Verified 06/29/24 13:34 ezetimibe Allergy Rash/Hives Verified 06/29/24 13:34 kiwi Allergy Rash/Hives Verified 06/29/24 13:34 Lactobacillus rhamnosus GG Allergy Rash/Hives Verified 06/29/24 13:34 [From Culturelle] polyethylene glycol 3350 Allergy Rash/Hives Verified 06/29/24 13:34 [From Miralax] [place]erg-JPE-YnU Reductase Allergy Rash/Hives Verified 06/29/24 13:34 Inhibitor azithromycin [From Zithromax] AdvReac Nausea & Verified 06/29/24 13:34 Vomiting cyclobenzaprine AdvReac lethargic, Verified 06/29/24 13:34 [From Flexeril] weakness hydrochlorothiazide AdvReac depleted Verified 06/29/24 13:34 [From Dyazide] electrolytes, syncope triamterene [From Dyazide] AdvReac depleted Verified 06/29/24 13:34 electrolytes, syncope Physical Exam Vitals: Vital Signs Pulse Pulse Resp BP BP Pulse Ox 06/30/24 10:50 78 18 134/95 100 06/30/24 07:30 66 18 147/99 97 06/30/24 04:09 61 9 L 126/76 97 06/30/24 02:59 59 L 12 123/79 95 06/30/24 00:00 59 L 15 129/82 96 06/29/24 17:32 60 16 142/90 95 Intake and Output 06/29/24 06/30/24 06/30/24 22:59 06:59 14:59 Intake Total 17.708 31.256 Balance 17.708 31.256 Intake: Intake, IV Titration 17.708 31.256 Amount Heparin Sod,Pork in 0.45% 17.708 31.256 NaCl 25,000 unit In 0.45 % NaCl 1 250ml.bag @ 12 UNITS/KG/HR 8.709 mls/hr IV .Q24H [facility] Rx#: [id number] Other: # Voids 1 Weight 72.575 kg Results 06/30/24 03:39 06/30/24 10:42 Cardiac Enzymes 06/29/24 06/29/24 06/30/24 Range/Units 14:50 17:59 09:32 Troponin I 0.030 0.041 H* <0.012 (0.000-0.034) ng/mL Coagulation 06/29/24 06/30/24 06/30/24 Range/Units 19:20 03:39 03:39 PT 11.9 10.1 (10.0-12.5) sec APTT >200.0 H* 27.6 (22.0-30.0) sec 06/30/24 Range/Units 10:42 PT (10.0-12.5) sec APTT 35.0 H (22.0-30.0) sec CBC 06/29/24 06/30/24 Range/Units 19:20 03:39 WBC 6.5 5.9 (3.8-10.6) k/uL RBC 4.48 4.65 (3.80-5.40) m/uL Hgb 12.7 13.0 (11.4-16.0) gm/dL Hct 39.2 40.9 (34.0-46.0) % Plt Count 235 231 (150-450) k/uL Comprehensive Metabolic Panel 06/29/24 06/30/24 06/30/24 Range/Units 17:59 03:39 10:42 Sodium 122 L 130 L 127 L (137-145) mmol/L Potassium 4.7 4.2 (3.5-5.1) mmol/L Chloride 97 L 95 L (98-107) mmol/L Carbon Dioxide 26 24 (22-30) mmol/L BUN 12 11 (7-17) mg/dL Creatinine 0.57 0.56 (0.52-1.04) mg/dL Glucose 93 105 H (74-99) mg/dL Calcium 9.1 9.1 (8.4-10.2) mg/dL Current Medications Generic Name Dose Route Start Last Admin Trade Name Freq PRN Reason Stop Dose Admin Acetaminophen 650 mg 06/29/24 13:16 Acetaminophen Tab 325 Mg Tab PO Q6HR PRN Mild Pain or Fever > 100.5 Al Hydroxide/Mg Hydroxide 15 ml 06/29/24 13:16 06/29/24 23:26 Mag Hydrox/Al Hydrox/Simeth 30 Ml Cup PO 15 ml Q6HR PRN Administration Indigestion Amlodipine Besylate 2.5 mg 06/30/24 09:30 06/30/24 10:50 Amlodipine 2.5 Mg Tab PO 2.5 mg DAILY NOA Administration Calcium Carbonate/Glycine 1,000 mg 06/29/24 13:16 Calcium Carbonate 500 Mg Chewable PO Q4HR PRN Dyspepsia Cholecalciferol 250 mcg 06/30/24 12:00 Cholecalciferol 125 Mcg (5000 Iu) Tablet PO DAILY@1200 NOA Fluoxetine HCl 40 mg 06/30/24 09:00 06/30/24 09:06 Fluoxetine Hcl 20 Mg Cap PO 40 mg DAILY@0900 NOA Administration Heparin Sodium (Porcine) 0 unit 06/29/24 18:56 06/30/24 04:59 Heparin Sodium 1,000 Un/Ml (10ml Vl) IV 3,528 unit PER PROTOCOL PRN Administration Low PTT Protocol Levothyroxine Sodium 44 mcg 07/04/24 06:30 Levothyroxine 88 Mcg Tab PO Bowles@0630 [facility] Levothyroxine Sodium 88 mcg 06/30/24 06:30 06/30/24 05:03 Levothyroxine 88 Mcg Tab PO 88 mcg MoTuWeThFrSa@0630 NOA Administration Lisinopril 10 mg 06/30/24 09:00 06/30/24 09:06 Lisinopril 10 Mg Tab PO 10 mg DAILY NOA Administration Melatonin 3 mg 06/29/24 13:16 06/29/24 23:26 Melatonin 3 Mg Tablet PO 3 mg HS PRN Administration Insomnia Methocarbamol 750 mg 06/29/24 18:06 Methocarbamol 750 Mg Tab PO TID PRN muscle spasms Multivitamins 1 each 06/30/24 12:00 Multivitamins, Thera 1 Each Tab PO DAILY@1200 [facility] Naloxone HCl 0.2 mg 06/29/24 13:16 Naloxone 0.4 Mg/Ml 1 Ml Vial IV Q2M PRN Opioid Reversal Ondansetron HCl 4 mg 06/29/24 13:16 Ondansetron 4 Mg/2 Ml Vial IVP Q8HR PRN Nausea And Vomiting Ticagrelor 90 mg 06/29/24 18:00 06/30/24 09:06 Ticagrelor 90 Mg Tab PO 90 mg BID-W/MEALS@,18 NOA Administration Intake and Output 06/29/24 06/30/24 06/30/24 22:59 06:59 14:59 Intake Total 17.708 31.256 Balance 17.708 31.256 Intake: Intake, IV Titration 17.708 31.256 Amount Heparin Sod,Pork in 0.45% 17.708 31.256 NaCl 25,000 unit In 0.45 % NaCl 1 250ml.bag @ 12 UNITS/KG/HR 8.709 mls/hr IV .Q24H [facility] Rx#: [id number] Other: # Voids 1 Weight 72.575 kg 06/30/24 03:39 06/30/24 10:42
[2024-06-30] MEDS: CHOLECALCIFEROL 125 MCG (5000 IU) TABLET PO SCH (12:23)
[2024-06-30] MEDS: MULTIVITAMINS, THERA 1 EACH TAB PO SCH (12:23)
--- NOTE | 2024-06-30 16:16 | P.PN ---
Subjective Progress Note Date: 06/30/24 Patient seen and examined at bedside she is doing well today with no acute complaints. Sodium is starting to improve blood pressures also come down Objective - Vital Signs Vital signs: Vital Signs Temp 98.9 F 06/30/24 12:30 Pulse 76 06/30/24 12:47 Resp 16 06/30/24 12:47 BP 162/86 06/30/24 12:47 Pulse Ox 100 06/30/24 12:47 FiO2 Intake & Output 06/29/24 06/30/24 06/30/24 18:59 06:59 18:59 Intake Total 48.964 Balance 48.964 Weight 72.575 kg 72.575 kg Intake: Intake, IV Titration 48.964 Amount Heparin Sod,Pork in 0.45% 48.964 NaCl 25,000 unit In 0.45 % NaCl 1 250ml.bag @ 12 UNITS/KG/HR 8.709 mls/hr IV .Q24H [facility] Rx#: [id number] Other: # Voids 1 - Constitutional General appearance: Present: average body habitus - EENT Eyes: Present: PERRLA - Respiratory Respiratory: bilateral: CTA, negative: diminished, dullness - Cardiovascular Rhythm: regular Heart sounds: normal: S1, S2 - Gastrointestinal General gastrointestinal: Present: normal bowel sounds, soft - Musculoskeletal Musculoskeletal: Present: gait normal - Psychiatric Psychiatric: Present: A&O x's 3, appropriate affect - Labs CBC & Chem 7: 06/30/24 03:39 06/30/24 10:42 Labs: Abnormal Lab Results - Last 24 Hours (Table) 06/29/24 06/29/24 06/29/24 Range/Units 17:59 17:59 19:20 APTT >200.0 H* (22.0-30.0) sec Sodium 122 L (137-145) mmol/L Chloride (98-107) mmol/L Glucose (74-99) mg/dL Troponin I 0.041 H* (0.000-0.034) ng/mL 06/30/24 06/30/24 06/30/24 Range/Units 03:39 10:42 10:42 APTT 35.0 H (22.0-30.0) sec Sodium 130 L 127 L (137-145) mmol/L Chloride 97 L 95 L (98-107) mmol/L Glucose 105 H (74-99) mg/dL Troponin I (0.000-0.034) ng/mL Assessment and Plan Assessment: Atypical Chest Pain in female Hypertensive emergency with headache and chest pain Ischemic CVA with no residual deficits Continue to monitor her vital signs closely Will restart her home antihypertensives Hydralazine 10 mg every 6 hours as needed for show assist for systolics greater than 160 At this time troponins overnight had 1 positive troponin level EKG at the time of admission showed normal sinus rhythm no ST/T wave changes Started on heparin drip overnight, discontinued this morning Low suspicion for ACS at this time DVT prophylaxis Cardiac diet Will restart remaining home medications were appropriate Norvasc 2.5 mg was added by cardiology, agree with this plan I did discuss this case with nephrology, given recurrent hyponatremia, recommending patient stay and have further workup Echocardiogram is pending at this time Cardiology following, reviewed recommendations
[2024-06-30] MEDS: ACETAMINOPHEN TAB 325 MG TAB PO PRN (16:52)
--- NOTE | 2024-06-30 18:34 | CA ---
Transthoracic Echo Report Name: Bonnie Jhaveri Age: 59 Gender: F : 1965 Exam Date: 06/30/2024 08:33 Exam Location: [place] [facility] Ht (in): 64 Wt (lb): 160 Ordering Physician: Gelacio Avery MD Attending/Referring Phys: Sheet Manager Amelia Barr RDCS Procedure CPT: Indications: Chest Pain Cardiac Hx: Technical Quality: Fair Contrast 1: Definity Total Dose (mL): 2 Contrast 2: Total Dose (mL): MEASUREMENTS (Male / Female) Normal Values 2D ECHO LV Diastolic Diameter PLAX 4.4 cm 4.2 - 5.9 / 3.9 - 5.3 cm LV Systolic Diameter PLAX 2.8 cm IVS Diastolic Thickness 1.0 cm 0.6 - 1.0 / 0.6 - 0.9 cm LVPW Diastolic Thickness 1.0 cm 0.6 - 1.0 / 0.6 - 0.9 cm LV Relative Wall Thickness 0.4 RV Internal Dim ED PLAX 2.2 cm LA Systolic Diameter LX 3.5 cm 3.0 - 4.0 / 2.7 - 3.8 cm LV Diastolic Volume MOD BP 58.4 cm??? 67 - 155 / 56 - 104 cm??? LV Systolic Volume MOD BP 21.9 cm??? 22 - 58 / 19 - 49 cm??? LV Ejection Fraction MOD BP 62.4 % >= 55 % LV Cardiac Index MOD BP 1374.9 cm???/min???m??? LV Diastolic Volume MOD 4C 63.0 cm??? LV Systolic Volume MOD 4C 25.2 cm??? LV Ejection Fraction MOD 4C 59.9 % LV Cardiac Index MOD 4C 1423.0 cm???/min???m??? LV Diastolic Length 4C 7.1 cm LV Systolic Length 4C 6.1 cm LV Diastolic Volume MOD 2C 51.1 cm??? LV Systolic Volume MOD 2C 19.0 cm??? LV Ejection Fraction MOD 2C 62.8 % LV Cardiac Index MOD 2C 1211.1 cm???/min???m??? LV Diastolic Length 2C 6.7 cm LV Systolic Length 2C 6.0 cm LA Volume 66.0 cm??? 18 - 58 / 22 - 52 cm??? LA Volume Index 36.1 cm???/m??? 16 - 28 cm???/m??? M-MODE Aortic Root Diameter MM 2.6 cm LA Systolic Diameter MM 2.9 cm LA Ao Ratio MM 1.1 AV Cusp Separation MM 2.1 cm DOPPLER AI Peak Velocity 391.4 cm/s AI Peak Gradient 61.3 mmHg AI Pressure Half Time 1166.7 ms MV Area PHT 2.5 cm??? Mitral E Point Velocity 70.2 cm/s Mitral A Point Velocity 111.7 cm/s Mitral E to A Ratio 0.6 MV Deceleration Time 305.1 ms TR Peak Velocity 226.2 cm/s TR Peak Gradient 20.5 mmHg FINDINGS Left Ventricle Left ventricular ejection fraction is estimated at 55-60 %. Normal left ventricular systolic function with no obvious regional wall motion abnormalities. Left ventricular cavity size normal. Left ventricular wall thickness normal. Right Ventricle Normal right ventricular size and function. Right ventricular systolic pressure within normal limits. Right Atrium Normal right atrial size. Interatrial septum bowed toward the right.normal right atrial size. Left Atrium Moderately increased left atrial volume. Mitral Valve Structurally normal mitral valve. Mild mitral regurgitation. No mitral stenosis.mitral annular calcification. Aortic Valve Trileaflet aortic valve. Trace aortic regurgitation. No aortic stenosis.aortic valve sclerosis. Tricuspid Valve Structurally normal tricuspid valve. mild tricuspid regurgitation. No tricuspid stenosis. Pulmonic Valve Structurally normal pulmonic valve. Trace pulmonic regurgitation. No pulmonic stenosis. Pericardium No pericardial or pleural effusion. Aorta Normal size aortic root and proximal ascending aorta. CONCLUSIONS 1. Normal left ventricular size and systolic function 2. Mild mitral and tricuspid regurgitation 3. Trace aortic regurgitation Previewed by: Dr. Sylwia Escudero MD (Electronically Signed) Final Date: 30 June 2024 18:33
[2024-07-01 03:26] VITALS: TEMP 97.8
[2024-07-01 07:45] LABS: HCT 45.5 % (34.0-46.0); HGB 14.7 gm/dL (11.4-16.0); MCH 28.9 pg (25.0-35.0); MCHC 32.2 g/dL (31.0-37.0); MCV 89.5 fL (80.0-100.0); Mean Platelet Volume 6.4; Platelet Count 258 k/uL (150-450); RBC 5.08 m/uL (3.80-5.40); RDW 12.7 % (11.5-15.5); WBC 5.9 k/uL (3.8-10.6)
[2024-07-01 07:57] LABS: African American GFR (CKD) >90 (>60 ml/min/1.73 sqM); Anion Gap 9 mmol/L; Blood Urea Nitrogen 13 mg/dL (7-17); Calcium 9.7 mg/dL (8.4-10.2); Carbon Dioxide 26 mmol/L (22-30); Chloride 97 mmol/L (98-107); Glucose 94 mg/dL (74-99); Non-African American GFR(CKD) >90 (>60 ml/min/1.73 sqM); Potassium 4.6 mmol/L (3.5-5.1); Sodium 132 mmol/L (137-145)
[2024-07-01 11:33] VITALS: BP 185/90; PULSE 68; RESP 18
--- NOTE | 2024-07-01 12:36 | P.PN ---
Subjective Progress Note Date: 07/01/24 Patient is here for follow-up for hyponatremia. Sodium improved from 124 => 130, then decreased from 130 => 127 on IV fluids. IV fluids were discontinued and patient was started on fluid restriction of 1200 cc daily. Sodium this morning 132. No active complaints. Objective - Vital Signs Vital signs: Vital Signs Temp 97.8 F 07/01/24 03:23 Pulse 77 07/01/24 08:26 Resp 16 07/01/24 08:26 BP 115/70 07/01/24 08:26 Pulse Ox 99 07/01/24 08:26 FiO2 Intake & Output 06/30/24 07/01/24 07/01/24 18:59 06:59 18:59 Intake Total 240 Balance 240 Weight 71.4 kg Intake: Oral 240 Other: # Voids 2 - Exam Patient is awake, comfortable, no acute distress. 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 - Labs CBC & Chem 7: 07/01/24 07:17 07/01/24 07:31 Labs: Abnormal Lab Results - Last 24 Hours (Table) 06/30/24 06/30/24 06/30/24 Range/Units 10:42 10:42 16:11 APTT 35.0 H (22.0-30.0) sec Sodium 127 L 128 L (137-145) mmol/L Chloride 95 L (98-107) mmol/L Glucose 105 H (74-99) mg/dL 07/01/24 Range/Units 07:31 APTT (22.0-30.0) sec Sodium 132 L (137-145) mmol/L Chloride 97 L (98-107) mmol/L Glucose (74-99) mg/dL Assessment and Plan Assessment: #Hyponatremia, euvolemic; on fluid restriction of 1200 cc daily, sodium this morning 132; previous urine osmolality 155 in January 2024, w/history of excessive free water intake; Urine osmolality and Urine sodium currently pend ing. #Atypical chest pain in female #Hypertensive emergency w/ associated headache and chest pain; improved #History of ischemic CVA with no residual deficits #Hypothyroidism; TSH was WNL #Anxiety Plan: -Has been receiving NS 100 cc/h; discontinued fluids as sodium dropped back down to 127 from 130 - was a rapid sodium correction from 124 to 130 in 20 hours. -On strict fluid restriction, 1200 cc/day -Sodium on arrival 124, this morning 130 and on repeat 127; sodium this morning 132. -Urine sodium and osmolality ordered, currently pending -Advised to maintain adequate protein intake -Stable for discharge from nephrology standpoint; follow up outpatient with 2 weeks with repeat BMP done prior to visit. Thank you for this consultation. Will continue to follow the patient during his hospital stay.
--- NOTE | 2024-07-01 13:38 | P.DS ---
Providers Date of admission: 06/29/24 13:29 Expected date of discharge: 07/01/24 Attending physician: Gelacio Avery MD Consults: 06/29/24 13:29 Consult Physician Urgent Consulting Provider: Katharina Chiu Consult Reason/Comments: acute hyponatremia Do you want consulting provider notified?: Yes 06/29/24 18:59 Consult Physician Routine Consulting Provider: Jonathan Abdalla Consult Reason/Comments: Trop Do you want consulting provider notified?: Yes Primary care physician: Audie Farris Hospital Course: Hyponatremia, euvolemic Atypical chest pain Hypertensive emergency History of ischemic CVA Hypothyroidism Anxiety Hospital course: Patient is a 59-year-old female past medical history of hypertension, hypothyroidism, history of ischemic CVA with normal obvious residual deficits who presented emergency department complaints of elevated blood pressure. In the emergency room patient was afebrile, 193/112, heart rate 77, 99% on room air. CBC is unremarkable. Basic metabolic panel was remarkable for sodium of 122. Troponin is 0.041. TSH is 1.34. Lipase is 94. Chest x-ray showed no acute cardiopulmonary process. EKG showed normal sinus rhythm with no evidence of ischemia. Patient was admitted in consultation with nephrology and cardiology. Patient was initially treated with heparin drip for NSTEMI, however, elevation of troponin secondary to hypertension. Patient was treated for hyponatremia with fluid restriction and IV fluids which improved her sodium to 132. Hyponatremia workup was ordered but not completed. Echocardiogram showed ejection fraction of 55 to 60%. No regional wall motion abnormality. Patient was cleared for discharge by cardiology and nephrology with PCP follow- up as well as follow-up with specialties. Patient should require repeat basic metabolic panel in 3 days. Changes to her home medications include the decrease of Norvasc to 2.5 mg daily from 5 mg daily as needed. I spent 38 minutes coordinating this discharge Gen: In NAD, non-toxic HEENT: normocephalic, atraumatic, hearing acuity is intant, mucous membranes moist CVS: perfusing all extremities well, no pitting edema, Respiratory: symmetric chest expansion, no accessory muscle use, GI: soft, NTTP, ND, : no suprapubic tenderness, no CVA tenderness MSK/Derm: no rashes, cyanosis Neuro: CN II-XII intact, no motor weakness, Psych: cooperative, euthymic mood, judgment and insight is intact Patient Condition at Discharge: Good Plan - Discharge Summary Discharge Rx Participant: No New Discharge Prescriptions: New Acetaminophen Tab [Tylenol] 650 mg PO Q6HR PRN tab PRN Reason: Mild Pain Or Fever > 100.5 Continue Multivitamins, Thera [Multivitamin (formulary)] 1 tab PO DAILY@1200 Levothyroxine Sodium [Synthroid] 88 mcg PO MOTUWETHFRSA EPINEPHrine (Auto Inject) [Epipen] 0.3 mg IM ONCE PRN PRN Reason: Anaphylaxis Cholecalciferol [Vitamin D3 (125 Mcg = 5000 Iu)] 250 mcg PO DAILY@1200 lisinopriL [Zestril] 10 mg PO DAILY #60 tab methocarbamoL [Robaxin-750] 750 mg PO TID PRN PRN Reason: muscle spasms Magnesium Glycinate 350mg 350 mg PO DAILY@0900 Cyanocobalamin (Vitamin B-12) [Vitamin B-12] 1,000 mcg PO DAILY@0900 Ticagrelor [Brilinta] 90 mg PO BID-W/MEALS@ Levothyroxine Sodium [Synthroid] 44 mcg PO BOWLES FLUoxetine HCL 40 mg PO DAILY@0900 Evolocumab [Repatha Syringe] 140 mg SQ Q14D Ubidecarenone [Coenzyme Q10] 200 mg PO DAILY@1200 L.acidoph,Paracasei, B.lactis [Probiotic] 1 cap PO DAILY@0900 Changed amLODIPine [Norvasc] 2.5 mg PO DAILY #0 Discharge Medication List Multivitamins, Thera [Multivitamin (formulary)] 1 tab PO DAILY@1200 06/20/19 [History] Levothyroxine Sodium [Synthroid] 44 mcg PO BOWLES 08/07/23 [History] Levothyroxine Sodium [Synthroid] 88 mcg PO MOTUWETHFRSA 08/07/23 [History] Ticagrelor [Brilinta] 90 mg PO BID-W/MEALS@08/07/23 [History] Cholecalciferol [Vitamin D3 (125 Mcg = 5000 Iu)] 250 mcg PO DAILY@1200 01/28/24 [History] EPINEPHrine (Auto Inject) [Epipen] 0.3 mg IM ONCE PRN 01/28/24 [History] Evolocumab [Repatha Syringe] 140 mg SQ Q14D 01/28/24 [History] FLUoxetine HCL 40 mg PO DAILY@0900 01/28/24 [History] lisinopriL [Zestril] 10 mg PO DAILY #60 tab 01/30/24 [Rx] Cyanocobalamin (Vitamin B-12) [Vitamin B-12] 1,000 mcg PO DAILY@0906/29/24 [History] L.acidoph,Paracasei, B.lactis [Probiotic] 1 cap PO DAILY@89906/29/24 [History] Magnesium Glycinate 350mg 350 mg PO DAILY@89906/29/24 [History] Ubidecarenone [Coenzyme Q10] 200 mg PO DAILY@1200 06/29/24 [History] methocarbamoL [Robaxin-750] 750 mg PO TID PRN 06/29/24 [History] Acetaminophen Tab [Tylenol] 650 mg PO Q6HR PRN tab 07/01/24 [Rx] amLODIPine [Norvasc] 2.5 mg PO DAILY #0 07/01/24 [Rx] Follow up Appointment(s)/Referral(s): Katharina Chiu MD [STAFF PHYSICIAN] - 2 Weeks (repeat BMP prior to visit ) Audie Farris MD [Primary Care Provider] - 1-2 days Patient Instructions/Handouts: Fluid Restriction (DC) Activity/Diet/Wound Care/Special Instructions: Please restrict your fluid intake to 1200mL per day. This is approximately half of a 2L [employer] bottle of total water intake daily. Discharge Disposition: HOME SELF-CARE
[2024-07-04] MEDS ORDERED: LEVOTHYROXINE 88 MCG TAB PO SCH (06:30)
== END 2024-07-01 15:19 | disposition home or self-care (01) | DRG 281 ==
LOC: EC 10:05 → SUPCPDRO 10:05 → 1SOBS 13:29 → 3SCARD 17:04
PROVIDERS: ADMIT Internal Medicine; ATTEND Internal Medicine
DX: I16.1 Hypertensive emergency (principal); E87.1 Hypo-osmolality and hyponatremia; I21.A1 Myocardial infarction type 2; I10 Essential (primary) hypertension; E03.9 Hypothyroidism, unspecified; F41.9 Anxiety disorder, unspecified; E78.5 Hyperlipidemia, unspecified; Z86.73 Personal history of transient ischemic attack (TIA), and cerebral infarction without residual deficits; Z79.02 Long term (current) use of antithrombotics/antiplatelets; Z79.890 Hormone replacement therapy; Z79.899 Other long term (current) drug therapy; Z82.49 Family history of ischemic heart disease and other diseases of the circulatory system
CPT/HCPCS: 36415; 71046; 80048; 80053; 82533; 83690; 83735; 83930; 84295; 84443; 84484; 85025; 85027; 85610; 85730; 93005; 93306; 96361; 96365; 96366; 99285

== ENCOUNTER → 2024-09-02 | Outpatient (CLI) | payer OTHER ==
--- NOTE | 2024-09-02 11:29 | XR ---
EXAMINATION TYPE: XR thoracic spine complete DATE OF EXAM: 09/02/2024 11:24 AM INDICATION: Patient age:Female; 59 years old; Reason for study: M54.6 Tspine pain; PHH. pain COMPARISON: Cervical spine radiograph 06/18/2024, chest radiograph 08/07/2023 TECHNIQUE: 3 views of the thoracic spine in Frontal, lateral, and swimmer's projections. FINDINGS: No evidence of acute fracture. No loss of vertebral body height. There is normal alignment of the tho racic vertebral bodies. Multilevel disc space narrowing with endplate sclerosis and anterior osteophy tosis. Tibial anterior cervical fusion hardware with intervertebral disc hardware. The visualized sebastian gs are clear. IMPRESSION: 1. No acute osseous pathology. 2. Mild multilevel degenerative disc disease of the thoracic spine. [facility], , 09/02/2024 11:26 AM
--- NOTE | 2024-09-02 13:51 | CT ---
EXAMINATION TYPE: CT cervical spine wo con CT DLP: 659.3 mGycm, Automated exposure control for dose reduction was used. DATE OF EXAM: 09/02/2024 11:17 AM COMPARISON: Cervical spine radiograph 06/18/2024, 04/29/2024, CT brain C-spine 06/01/2023. CLINICAL INDICATION:Female, 59 years old with history of Z98.1 ARTHRODESIS STATUS; PHH, arthrosesis s tatus, pain TECHNIQUE: Axial CT images from the skull base to the inferior aspect of T2 we obtained without intra venous contrast. Coronal and sagittal reformatted images were also reviewed. FINDINGS: Fracture: None. Osseous structures: Post surgical changes from ACDF involving C3-C7 with intervertebral hardware. Kurt dware appears intact with appropriate alignment. There is fusion of the C5-C7 vertebral bodies. There is some posterior bony bridging involving the C4-C5 level. Disc space narrowing with endplate sclero sis and anterior osteophytosis at T1-T2. Vertebral alignment: Within normal limits. Spinal canal/Neural Foramina: Postsurgical changes which create streak artifact limits evaluation. No gross evidence of significant central canal stenosis. Multilevel facet arthropathy and uncovertebral joint hypertrophy resulting in varying degrees of neural foraminal stenosis at least mild stenosis a t C3-C4. Neck soft tissues: Prevertebral soft tissues are within normal limits. Other: The airway is patent. The lung apices are clear. There are calcified plaque within the bilater al carotid bulbs. Asymmetrically enlarged right thyroid lobe compared to left. IMPRESSION: 1. No evidence of cervical spine fracture. 2. Postsurgical changes of ACDF involving C3-C7. Hardware appears intact with appropriate alignment. [facility], , 09/02/2024 1:49 PM
== END | disposition home or self-care (01) ==
LOC: RADCTMAIN 10:31
PROVIDERS: ATTEND Neurological Surgery
DX: M51.34 Other intervertebral disc degeneration, thoracic region (principal); M50.31 Other cervical disc degeneration, high cervical region; Z98.1 Arthrodesis status
CPT/HCPCS: 72072; 72125

== ENCOUNTER → 2024-09-10 | Outpatient (CLI) | payer OTHER ==
--- NOTE | 2024-09-12 22:03 | CT ---
EXAMINATION TYPE: CT chest wo con DATE OF EXAM: 09/10/2024 10:11 AM COMPARISON: Radiograph 06/29/2024 CLINICAL INDICATION: Female, 59 years old with history of E87.1 HYPO-OSMOLALITY AND HYPONATREMIA; PHH , HYPO-OSMOLALITY AND HYPONATREMIA. LOW SODIUM TECHNIQUE: Multiple axial images were obtained through the chest without IV contrast. Sagittal and co magalie reformats were created for review. MIP was performed on a separate workstation. CT DLP: 417.5 mGycm, Automated exposure control for dose reduction was used. FINDINGS: The heart is normal size without pericardial effusion. LAD and RCA coronary artery calcifications are present. Ectatic ascending aorta 3.6 cm. Mild atherosclerotic arch calcifications with conventional arch vesse l branching anatomy. Fullness of the thyroid gland, particularly the right thyroid lobe which can be further evaluated wit h dedicated thyroid ultrasound. No thoracic lymphadenopathy by CT size criteria. Mild diffuse bronchial wall thickening. Mild emphysematous change. No consolidation or pleural effusi on. A few benign calcified granulomas at the lower lungs. A couple additional 3 mm pulmonary nodules at t he mid lung levels, on the right axial image 27 and on the left axial image 28. Visualized upper abdomen shows no gross abnormality. Bones: ACF hardware. Slight levoconvex curvature along the upper thoracic spine. Scattered mild degen erative disc disease. IMPRESSION: 1. COPD with mild emphysema. 2. LAD and RCA coronary artery calcifications. 3. A few benign basilar calcified granulomas. A couple additional 3 mm pulmonary nodules at the mid l ángela levels. 12 month follow-up CT to reassess. 4. Prominent thyroid gland, particularly the right lobe. Recommend thyroid ultrasound to exclude any underlying thyroid nodules. Follow up recommendations for incidental pulmonary nodules, if there are any, are per [employer] or [employer]. [facility], , 09/12/2024 10:01 PM
== END | disposition home or self-care (01) ==
LOC: RADCTMAIN 09:41
PROVIDERS: ATTEND Family Medicine
DX: J44.9 Chronic obstructive pulmonary disease, unspecified (principal); E87.1 Hypo-osmolality and hyponatremia; I25.10 Atherosclerotic heart disease of native coronary artery without angina pectoris; J84.10 Pulmonary fibrosis, unspecified; R91.8 Other nonspecific abnormal finding of lung field; J43.9 Emphysema, unspecified
CPT/HCPCS: 71250

== ENCOUNTER → 2024-10-18 | Outpatient (CLI) | payer OTHER ==
[2024-10-18 19:42] LABS: BUN/Creat Ratio 20.25 Ratio (12.00-20.00); Blood Urea Nitrogen 16.2 mg/dL (9.0-27.0); Calcium 8.9 mg/dL (8.7-10.3); Carbon Dioxide 24.2 mmol/L (21.6-31.8); Chloride 93 mmol/L (96-109); Glucose 96 mg/dL (70-110); Potassium 4.7 mmol/L (3.5-5.5); Sodium 128 mmol/L (135-145)
--- NOTE | 2024-10-18 23:07 | US ---
EXAMINATION TYPE: US thyroid st tissue head/neck DATE OF EXAM: 10/18/2024 COMPARISON: 09/10/2024 CLINICAL INDICATION: Female, 59 years old with history of E04.1 THY NODULE; Hx Benign thyroid biopsie s, on thyroid medications, recent CT showed right thyroid enlargement - patient states trouble swallo wing. TECHNIQUE: Grayscale and color Doppler imaging of the thyroid gland. FINDINGS: GLAND SIZE: Right Lobe: 6.2 x 2.6 x 2.9 cm Overall Parenchyma: heterogeneous Left Lobe: 4.1 x 2.2 x 1.2 cm Overall Parenchyma: heterogeneous Isthmus Thickness: 0.3 cm NODULES RIGHT: # of nodules measured on right: 0 LEFT: # of nodules measured on left: 1 1. 1.8 X 1.0 x 1.4 cm, lower mid, mixed cystic and solid, hypoechoic nodule, which is wider than ta ll, with lobulated or irregular margins, with punctate echogenic foci. TR 5 Prior size: No Prior ISTHMUS: # of nodules measured in the isthmus: 0 Bilateral neck scanned, no evidence of lymphadenopathy. IMPRESSION: Highly suspicious nodule left lobe thyroid. Fine-needle aspiration recommended. Highest TI-RADS level nodule reported: 2017 ACR TI-RADS LEVEL: TI-RADS 5 - Highly Suspicious: Follow if > 0.5 cm, FNA if > 1.0 cm TI-RADS assessment score and recommendation for follow-up based on appropriate scoring and treatment protocols. TR1 Benign No FNA TR2 Not suspicious No FNA TR3: If nodule size is ? 2.5 cm, FNA is recommended. If nodule size is ? 1.5 cm, follow-up imaging at 1, 3, and 5 years is recommended. TR4: If nodule size is ? 1.5 cm, FNA is recommended. If nodule size is ? 1.0 cm, follow-up imaging at 1, 2, 3, and 5 years is recommended. TR5: If nodule size is ? 1.0 cm, FNA is recommended. If nodule size is ? 0.5 cm, annual follow-up for up to 5 years is recommended. TR 1 thyroid nodules have a 0.3 % risk of malignancy. TR 2 thyroid nodules have a 1.5 % risk of malignancy. TR 3 thyroid nodules have a 4.8 % risk of malignancy. TR 4 thyroid nodules have a 9.1 % risk of malignancy. TR 5 thyroid nodules have a 35 % risk of malignancy. [email or web address] Yellow level critical message alert has been initiated for Audie Farris MD via the [employer] Critical Results System on 10/18/2024 11:04 PM. This message alert has been sent to Audie Farris MD vi a the preferences provided by the clinician for the receipt of Radiology Critical Findings. Message I D [id number]. [facility], , 10/18/2024 11:04 PM
--- NOTE | 2024-10-18 23:09 | US ---
EXAMINATION TYPE: US pelvic complete DATE OF EXAM: 10/18/2024 COMPARISON: NONE CLINICAL INDICATION: Female, 59 years old with history of R19.4 CHANGE BOWEL HABITS; Patient denies any other signs, symptoms, or relevant history TECHNIQUE: Transabdominal (TA). Transabdominal grayscale sonographic images of the pelvis were acquired. Transvaginal sonographic im ages were medically not necessary Doppler imaging: Not performed. FINDINGS: Date of LMP: 2007 EXAM MEASUREMENTS: Uterus: 4.6 x 2.5 x 3.7 cm Endometrial Stripe: 0.5 cm Right Ovary: 1.8 x 1.3 x 1.5 cm Left Ovary: 1.4 x 0.9 x 1.4 cm 1. Uterus: Anteverted wnl 2. Endometrium: wnl 3. Right Ovary: wnl 4. Left Ovary: wnl 5. Bilateral Adnexa: wnl 6. Posterior cul-de-sac: wnl IMPRESSION: Unremarkable pelvic ultrasound. O-RADS 2021 [email or web address] [facility], , 10/18/2024 11:06 PM
== END | disposition home or self-care (01) ==
LOC: RADUSWWP 14:18
PROVIDERS: ATTEND Family Medicine
DX: E04.1 Nontoxic single thyroid nodule (principal); R19.4 Change in bowel habit
CPT/HCPCS: 76536; 76856; 80048

== ENCOUNTER → 2024-10-23 | Outpatient (CLI) | payer OTHER ==
--- NOTE | 2024-10-23 12:35 | MR ---
EXAMINATION TYPE: MR brain wo/w con DATE OF EXAM: 10/23/2024 7:53 AM COMPARISON: 09/29/2023. CLINICAL INDICATION: Female, 59 years old with history of Z86.73 hx CVA; PHH, prev stroke july 19' / weakness on left side TECHNIQUE: Multi planar, multi sequence imaging was performed through the brain including: T1, T2, In version recovery, susceptibility weighted imaging and gradient echo imaging and Diffusion weighted im aging. The patient was then given intravenous contrast and multi planar, T1 fat-saturation images wer e obtained. IV Contrast: 7ml mL Gadobutrol FINDINGS: FINDINGS: Remote injuries of the right frontal and parietal lobe. Hemosiderin deposition within these areas is present with blooming artifact noted. No new acute areas of restriction diffusion. Mild cerebral atrophy with proportional dilation of ventricular system. Scattered foci of high T2 s ignal intensity are seen within the periventricular white matter. Midline structures show no abnormal ity. Diffusion-weighted imaging shows no evidence of restricted diffusion. The bone marrow signal is within normal limits. Paranasal sinuses and mastoid air cells: No significant paranasal sinus disease. Visualized orbits: Orbital contents are intact. IMPRESSION: 1. Prior infarcts of the right frontal lobe and right parietal lobe no new acute/subacute CVA 2. Nonspecific white matter changes, likely secondary to small vessel ischemic disease. [facility], , 10/23/2024 12:32 PM
== END | disposition home or self-care (01) ==
LOC: RADMRIMAIN 07:14
PROVIDERS: ATTEND Family Medicine
DX: R90.82 White matter disease, unspecified (principal); Z86.73 Personal history of transient ischemic attack (TIA), and cerebral infarction without residual deficits
CPT/HCPCS: 70553; A9585

== ENCOUNTER → 2024-10-27 | Outpatient (CLI) | payer OTHER ==
--- NOTE | 2024-10-27 11:38 | MR ---
INDICATION: Patient age:Female; 59 years old; Reason for study: M54.14 RADICULOPATHY; PHH. COMPARISON: Thoracic spine radiograph 09/02/2024, CT chest 09/10/2024. TECHNIQUE: Multi planar, multi sequence imaging was performed utilizing: T1-weighted, T2-weighted, an d turbo inversion recovery imaging of the thoracic spine. The patient was not given Gadolinium. FINDINGS: Anterior cervical fusion hardware demonstrated with susceptibility artifact. Grade 1 anterolisthesis of C7 on T1. The thoracic vertebral bodies have preserved heights and alignment. The osseous structur e have normal signal intensity. Multilevel anterior osteophytosis of the lower thoracic spine. Multil evel disc desiccation. No abnormal STIR signal. Thoracic spinal cord appears unremarkable. Left paracentral disc protrusion at T8-T9 with mild efface ment of the anterior thecal sac. There is close approximation of the anterior spinal cord. No signifi cant spinal cord stenosis of the thoracic spine. No evidence for significant neuroforaminal stenosis of the thoracic spine. IMPRESSION: 1. Mild degenerative disc disease with small left paracentral disc protrusion at T8-T9. No significa nt spinal canal or neuroforaminal stenosis of the thoracic spine. 2. Post surgical changes from anterior fusion of the cervical spine. 3. Grade 1 anterolisthesis of C7 on T1. [facility], , 10/27/2024 11:35 AM
== END | disposition home or self-care (01) ==
LOC: RADMRIMAIN 10:26
PROVIDERS: ATTEND Neurological Surgery
DX: M51.34 Other intervertebral disc degeneration, thoracic region (principal); M51.24 Other intervertebral disc displacement, thoracic region; Z98.1 Arthrodesis status; M43.13 Spondylolisthesis, cervicothoracic region
CPT/HCPCS: 72146

== ENCOUNTER → 2024-10-27 | Outpatient (CLI) | payer OTHER ==
[2024-10-27 15:25] LABS: Anion Gap 13.00 mmol/L (4.00-12.00); BUN/Creat Ratio 17.88 Ratio (12.00-20.00); Blood Urea Nitrogen 14.3 mg/dL (9.0-27.0); Calcium 9.1 mg/dL (8.7-10.3); Carbon Dioxide 23.0 mmol/L (21.6-31.8); Chloride 93 mmol/L (96-109); Glucose 90 mg/dL (70-110); Magnesium 1.8 mg/dL (1.5-2.4); Potassium 4.5 mmol/L (3.5-5.5); Sodium 129 mmol/L (135-145)
== END | disposition home or self-care (01) ==
LOC: LABWHC1 11:39
PROVIDERS: ATTEND Internal Medicine Clinical Cardiac Electrophysiology
DX: I10 Essential (primary) hypertension (principal)
CPT/HCPCS: 36415; 80048; 83735

== ENCOUNTER 2024-11-03 07:55 | Day surgery (SDC) | payer OTHER ==
[2024-11-03 08:45] VITALS: PULSE 66; RESP 18; TEMP 98.3
[2024-11-03 10:21] VITALS: BP 152/93
--- NOTE | 2024-11-04 06:02 | US ---
CLINICAL INDICATION: Female 59 years old with a history of E04.1 NONTOXIC SINGLE THYROID NODULE. COMPARISON: Ultrasound thyroid study from October 18, 2024. PROCEDURE: ULTRASOUND-GUIDED THYROID LEFT NODULE FNA Pre-procedure diagnosis: TR5 left sided nodule. Post-procedure diagnosis: TR2 nodule. Anesthesia: Locally anesthetized with 1% lidocaine. Physician: Exam was performed by Dr Haynes EBL: Minimal. Specimens: 5 FNA aspirates Condition: Stable. Unanticipated events: None. Procedure Description: Informed consent was obtained. Discussion included possibility of nondiagnostic results. Patient was brought to the ultrasound procedure suite and placed supine upon the table with neck extended. Multip le grayscale images and real-time imaging was obtained of the thyroid gland. The thyroid gland was sc anned. There is redemonstration of left-sided nodule that appears more cystic and anechoic on current study. The skin over the procedure site was marked, prepped, and draped in usual sterile fashion. Then a ti meout was then performed. The site was then locally anesthetized with 1% lidocaine. Under direct ult rasound guidance the needle was then localized to the lesion. A total of 525-gauge FNA samples were o btained from the lesion. Samples were sent to the lab for further evaluation. The nodule was not huong ntified after aspiration consistent with complete cystic etiology. After the samples were obtained, hemostasis achieved at the site by manual compression. A sterile Ba nd-Aid was placed. Patient tolerated the procedure well with no immediate complication. Patient was subsequently discharged home. IMPRESSION: Successful ultrasound guided FNA with samples sent to pathology for further analysis. Low index of suspicion noted at time of procedure [facility], , 11/04/2024 5:59 AM
== END 2024-11-03 10:00 | disposition home or self-care (01) ==
LOC: RADPROMAIN 07:55
PROVIDERS: ATTEND Family Medicine
DX: E04.1 Nontoxic single thyroid nodule (principal)
CPT/HCPCS: 10005; 88173; 88305

== ENCOUNTER → 2024-11-25 | Outpatient (CLI) | payer OTHER ==
--- NOTE | 2024-11-25 15:28 | FL ---
EXAMINATION TYPE: FL esophagus cervic/pharynx DATE OF EXAM: 11/25/2024 9:30 AM COMPARISON: None. CLINICAL INDICATION: Female, 59 years old with history of K21.9 laryngopharyngeal reflux; PHH, sensat ion of throat closing. Reports right thyroid lobe swelling. Total fluoroscopy time 2 minutes 34 seconds. Total images: 46. Total DAP: 449 mGycm2. FINDINGS: There was a single incident of deep penetration with coating of the vocal folds. No aspiration was se en. Otherwise, swallowing mechanism is normal. Postsurgical change with ACDF. No prevertebral soft ti ssue swelling is seen. There is slight leftward bowing of the cervical esophagus on the AP view possi oscar due to ACDF change versus asymmetric right thyroid lobe prominence. The thoracic portion has a normal course and caliber. There are blunted secondary stripping waves res ulting in delayed clearance of contrast from the esophagus. No significant tertiary peristalsis is se en. The mucosa is normal and no persistent filling defect is encountered. There is a tiny hiatal hernia on QUIROZ prone imaging with trace gastroesophageal reflux seen. IMPRESSION: 1. A single incident of deep penetration with coating of the vocal folds. No aspiration was seen. 2. Some leftward bowing of the cervical esophagus which may be due to post ACDF changes versus mass e ffect from asymmetric enlargement of the right thyroid lobe. No significant narrowing is identified h ere or stricture elsewhere throughout the esophagus. 3. Mild esophageal dysmotility. 4. Tiny hiatal hernia with trace gastroesophageal reflux seen. [facility], , 11/25/2024 3:26 PM
== END | disposition home or self-care (01) ==
LOC: RADFLMAIN 08:03
PROVIDERS: ATTEND Otolaryngology Otolaryngology/Facial Plastic Surgery
DX: K21.9 Gastro-esophageal reflux disease without esophagitis (principal); K22.4 Dyskinesia of esophagus; K44.9 Diaphragmatic hernia without obstruction or gangrene
CPT/HCPCS: 74210